=== PATIENT | female | born 1950 ===

== ENCOUNTER 2025-01-23 10:15 | Outpatient (AMB) | payer OTHER, SELFPAY ==
--- NOTE | 2025-01-23 10:26 | MHC.OFFVIS ---
Vital Signs 01/23/25 10:33 Height 4 ft 9 in Weight 119 lb BMI 25.7 BP 169/74 H Blood Pressure Location Lt brachial Position Sitting Respiration 18 Pulse 60 Pulse Source Pulse Oximeter Pulse Oximetry (%) 97 Oxygen Delivery Method Room Air Intake Visit Reasons: Chronic midline low back pain Oil Derrick Operator Required: Yes Oil Derrick Operator Services: Oil Derrick Operator Present Oil Derrick Operator Name: advertising teacher Allergies hydrochlorothiazide Allergy (Unknown, Verified 01/23/25 10:30) Rash tramadol Allergy (Unknown, Verified 01/23/25 10:30) tachycardia HPI Comments Details: Stephanie is very pleasant 74 years old very unfortunate female who is suffering most advanced osteoarthritis in multiple locations. She came today in my office with complains on pain in bilateral shoulders pain in bilateral knees and pain in bilateral lower extremities and pain in the lower back. She reports the lower back pain radiates into the right lower extremity. She reports that radiation ends in the 2nd toe. She reports her pain today 10/10. She is severely disabled. Because of her pain she is unable to sleep normally can not do activities of daily living she can not take care of herself and she can not function normally. She needs walker for ambulation. Weather changes in movements aggravate her pain. In terms of tissue damage he describes her pain as sharp, pinching, hot burning, tingling sensation. For her pain control she takes Tylenol Arthritis. She never had MRI or CT scan of her lumbar spine. MRI is contraindicated for the patient because she has a pacemaker. She had physical therapy for the knees and shoulders but not her her lower back. She on physical exam has her knees grossly deformed and probably destroyed by the arthritis. In the past she received knee injections and shoulder injections however she denied any help from steroid injections. Her past medical history significant for hypertension headaches dizziness and fainting history of chest pain angina history of heart palpitations has a pacemaker she has anemia kidney stones digestive problems and arthritis. Her past surgical history significant for gallbladder surgery she does not remember when but she knows that was long time ago. She admits smoking cigarettes denies drinking alcohol drinks coffee twice a day and denies recreational drugs. Review of Systems Const All systems reviewed & are unremarkable except as noted in HPI and below ENT Reports Normal hearing present Neuro Reports Normal hearing present, Denies Abnormal speech present, Denies confusion and Denies Sensory deficit (Neuro) Psych Denies confusion Physical Exam Vital Signs: Last Vital Signs Pulse 60 07/03/25 10:33 Resp 18 01/23/25 10:33 BP 169/74 H 01/23/25 10:33 Pulse Ox 97 01/23/25 10:33 Oxygen Delivery Method Room Air 01/23/25 10:33 BMI result Body Mass Index 25.7 Const General: no acute distress; No confusion Orientation/consciousness: patient oriented x3 and No confusion Limitations: language barrier Eyes General: appearance normal, both eyes and all related structures Pupils: Equal, round and reactive pupils present EOM: EOMs intact bilaterally Neck Neck: Yes full ROM Chest Chest palpation & inspection: normal inspection of the chest Resp Effort & Inspection: normal respiratory effort, able to speak in complete sentences, normal respiratory pattern, no audible wheezes and no cough Cardio Jugular venous distension: no JVD GI Inspection: Yes normal to inspection Back/Spine/Pelvis Other: Severe tenderness on palpation in projection of the most lower portion of the lumbar spine. SLR is positive bilaterally. Lasegue test is positive bilaterally. Valsalva maneuver aggravates patient's pain. Neuro General: patient oriented x3, gait normal and No confusion Cranial nerves: Yes CN's II-XII intact bilaterally, Yes Equal, round and reactive pupils present, Yes Normal hearing present and Yes Ability to bilaterally elevate shoulders present Speech: No Abnormal speech present Gait exam (Neuro): Normal gait present Motor exam (neuro): 5/5 motor strength present throughout Sensory Exam: No Sensory deficit (Neuro) Extrem Other: On inspection of the bilateral knees: Gross deformity demonstrating end-stage terminal knee osteoarthritis. General: No pedal edema Psych Speech and movement: Normal speech and movement present Affect: normal affect Attitude: cooperative Thought process: Normal thought process present Thought content: Normal thought content present Insight: Good insight present (Psych) Judgement: Good judgement present (Psych) Assessment & Plan Assessment & Plan (1) Osteoarthritis of knees, bilateral: Code(s): M17.0 - Bilateral primary osteoarthritis of knee Category: Medical (2) Radiculopathy, lumbar region: Code(s): M54.16 - Radiculopathy, lumbar region Category: Medical (3) Spondylosis of lumbar region without myelopathy or radiculopathy: Code(s): M47.816 - Spondylosis without myelopathy or radiculopathy, lumbar region Category: Medical (4) Disc degeneration, lumbar: Code(s): M51.369 - Other intervertebral disc degeneration, lumbar region without mention of lumbar back pain or lower extremity pain Category: Medical (5) Chronic pain syndrome: Code(s): G89.4 - Chronic pain syndrome Category: Medical (6) Bilateral knee pain: Code(s): M25.561 - Pain in right knee; M25.562 - Pain in left knee Category: Medical Plan This very unfortunate 74 years old female probably suffering from multiple arthritic sites. Considering her knee she would be a good candidate for total knee replacement however currently she is very negative about the procedure. She states that she has a pacemaker and she has is afraid to go for surgery. I will perform diagnostic genicular nerve block on the left 1st and then on the right, after that with a good results I will schedule her for cooled radiofrequency ablation of the bilateral knee genicular nerves. Again the procedure will be performed 1st on the left and then after that on the right. As of her lower back pain I am pretty confident that she has radiculopathy. I will schedule her for CT scan with and without contrast to evaluate her lumbar spine. She has radicular pain with radiation into the bilateral lower extremities and I believe that some injections could be tried at least 2 temporarily help this patient's pain. Orders: Orders CT lumbar spine wo/w IV con Today M47.816 - Spondylosis without myelopathy or radiculopathy, lumbar region, M51.369 - Other intervertebral disc degeneration, lumbar region without mention of lumbar back pain or lower extremity pain, M54.16 - Radiculopathy, lumbar region PT Evaluation and Treatment Today M47.816 - Spondylosis without myelopathy or radiculopathy, lumbar region, M51.369 - Other intervertebral disc degeneration, lumbar region without mention of lumbar back pain or lower extremity pain, M54.16 - Radiculopathy, lumbar region Patient Instructions: I here by testify that I spent 45 minutes in conversation with this patient as well as planning her care and organizing this note. Coding Level of Care Code New Pt Level 4 (45433) Diagnoses Osteoarthritis of knees, bilateral M17.0 Radiculopathy, lumbar region M54.16 Spondylosis of lumbar region without myelopathy or radiculopathy M47.816 Disc degeneration, lumbar M51.369 Chronic pain syndrome G89.4 Bilateral knee pain M25.561; M25.562
[2025-01-23 10:33] VITALS: BP 169/74; PULSE 60; RESP 18; O2SAT 97; BMI 25.7
--- OUTSIDE RECORDS SUMMARY | 2025-01-23 10:57 | XMS_ITS ---
Author Name [facility] Organization Unknown History of Medication Use Medication Directions Dispensed Refills Start Date End Date Stat iopamidol (ISOVUE-370) 76 % injection 0-150 mL 0-150 mL, Intravenous, IMG once as needed, contrast, Starting on 09/30/23 at 1430, For 1 dose, Radiology Contrast 09/30/2023 09/30/2023 completed acetaminophen (TYLENOL) 325 MG tablet Take 650 mg by mouth every 6 (six) hours as needed for pain. active aspirin EC 81 MG tablet Take 81 mg by mouth daily. active metFORMIN (GLUCOPHAGE) tablet 500 mg Take 500 mg by mouth 2 (two) times a day with meals. active omeprazole (PriLOSEC) 20 MG capsule Take 20 mg by mouth daily. active senna (SENOKOT) 8.6 MG tablet Take 2 tablets by mouth daily. 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 2019-10-23 ProblemAct [facility] Cranial nerve palsy active 2019-12-10 ProblemAct [facility] Chronic kidney disease, stage 3, mod decreased GFR active 2019-10-23 ProblemAct [facility] Allergic rhinitis active 2019-12-10 ProblemAct [facility] Osteopenia active 2019-12-10 ProblemAct [facility] Urinary tract infection active EncounterDiagnosisAct [facility] Hyperlipidemia active 2019-10-23 ProblemAct [facility] Encounters Encounter Type Encounter Reason Primary Diagnosis Location Date Emergency Unspecified fall, initial encounter Unspecified fall, initial encounter [facility] 09/30/2023 Care Team Organization Name Specialty Phone Email Start Date End Da te [facility] GERTRUDIS G[facility] 09/30/2023 [facility] 09/30/2023
--- OUTSIDE RECORDS SUMMARY | 2025-01-23 10:57 | XMS_ITS | Clinical Summary ---
Author Organization [facility] Address [address] [place] [address] Care Team Providers Care Mobility Developer Name Role Phone Bran Vásquez MD Primary Care Provider [phone] Allergies Active Allergy Reactions Criticality Noted Date Comments Cephalexin 01/08/2021 Lisinopril 01/08/2021 Penicillins 01/08/2021 Tramadol 01/08/2021 Medications Medication Sig Dispensed Refills Start Date End Date Status atorvastatin (LIPITOR) tablet 80 mg Take 80 mg by mouth daily. 0 Active aspirin EC 81 MG tablet Take 81 mg by mouth daily. 0 Active omeprazole (PriLOSEC) 20 MG capsule Take 20 mg by mouth daily. 0 Active [place]-3 1000 MG CAPS Take 1 capsule by mouth daily. 0 Active Multiple Vitamin (MULTIVITAMIN ADULT PO) Take 1 tablet by mouth daily. 0 Active calcium-vitamin D (OSCAL-500) 500-400 MG-UNIT per tablet Take 1 tablet by mouth daily. 0 Active cetirizine (ZyrTEC) 10 MG tablet Take 10 mg by mouth daily. 0 Active carvedilol (COREG) 12.5 MG tablet Take 12.5 mg by mouth 2 (two) times a day with meals. 0 Active amLODIPine (NORVASC) tablet 5 mg Take 5 mg by mouth daily. 0 Active metFORMIN (GLUCOPHAGE) tablet 500 mg Take 500 mg by mouth 2 (two) times a day with meals. 0 Active senna (SENOKOT) 8.6 MG tablet Take 2 tablets by mouth daily. 0 Active acetaminophen (TYLENOL) 325 MG tablet Take 650 mg by mouth every 6 (six) hours as needed for pain. 0 Active sulfamethoxazole-t rimethoprim (BACTRIM DS) 800-160 MG per tablet Take 1 tablet (160 mg of trimethoprim total) by mouth 2 (two) times a day. 14 tablet 0 09/30/2023 Active Active Problems Problem Noted Date Diagnosed Date Allergic rhinitis 12/10/2019 Cranial nerve palsy 12/10/2019 ARELLANO (nonalcoholic steatohepatitis) 12/10/2019 Osteopenia 12/10/2019 Chronic kidney disease, stage 3, mod decreased G FR 10/23/2019 Hyperlipidemia 10/23/2019 Type 2 diabetes mellitus with renal manifestatio ns 10/23/2019 Osteoarthritis of both knees 08/28/2019 Overview: Advanced tricompartmental degenerative changes, no fracture or dislocation. Ct left knee, recently done at [facility], seen by orthopedics Dr. joycelyn Avalos Social History Tobacco Use Types Packs/Day Years Used Date Smoking Tobacco: Former Smokeless Tobacco: Never Alcohol Use Standard Drinks/Week Comments Not Currently 0 (1 standard drink = 0.6 oz pur e alcohol) Sex and Gender Information Value Date Recorded Sex Assigned at Female 09/30/2023 1:59 PM EST Gender Identity Female 09/30/2023 1:59 PM EST Sexual Orientation Not on file Job Start Date Occupation Industry Not on file Not on file Not on file Last Filed Vital Signs Vital Sign Reading Time Taken Comments Blood Pressure 153/58 09/30/2023 12:36 PM EST Pulse 60 09/30/2023 12:36 PM EST Temperature 37.2 C (99 F) 09/30/2023 12:36 PM EST Respiratory Rate 18 09/30/2023 12:36 PM EST Oxygen Saturation 97% 09/30/2023 12:36 PM EST Inhaled Oxygen Concentration - - Weight 62.6 kg (138 lb) 09/30/2023 12:36 PM EST Height 144.8 cm (4' 9 ) 09/30/2023 12:36 PM EST Body Mass Index 29.86 09/30/2023 12:36 PM EST Plan of Treatment Health Maintenance Due Date Last Done Comments Hepatitis C Screening 1950 COVID-19 Vaccine (#1) 05/19/1950 Depression Screening 1961 Preventative Health Evaluation 11/18/1967 Colon Cancer Screening (Colonoscopy) 1994 Shingrix-Zoster Vaccine (1 o f 2) 11/18/1999 Fall Risk Assessment 2014 Osteoporosis Screening (DEXA Scan) 2014 Pneumococcal Vaccine (3 of 3 - PPSV23 or PCV20) 06/30/2016 06/30/2015, 12/25/2009 DTap / Tdap / Td (2 - Td or Tdap) 05/16/2018 05/16/2008 RSV Adult > 60+ Yrs or (1 - 1-dose 75+ series) 2024 Influenza Vaccine (Season Ended) 2025 06/12/2019 Hepatitis B Vaccines Aged Out No long er eligible based on patient's age to complete this topic RSV Ped < 20 months Aged Out No longe r eligible based on patient's age to complete this topic Care Teams Mobility Developer Relationship Specialty Start Date End Date Bran Vásquez MD [address] [place] [id number] PCP - General Hospitalist Medicine 09/30/23
--- OUTSIDE RECORDS SUMMARY | 2025-01-23 10:57 | XMS_ITS | Data Portability ---
Author Organization [employer] [facility], [facility] Address [address] [place] [address] Care Team Providers Care Proof Sorter Name Role Phone HIM CCA OTHER Assessment Encounter Date Assessment Date Assessment LastModified by Organization Details LastModified Time 05/29/2023 05/29/2023 Ms. Vane Lisa is a 72yoF w/ a PmHx of HTN, DM2, hx of cholecystectomy , reported renal mass who is seen today for right flank/thoracic pain. Ms. Lisa reports that for the past week she has had achey right flank pain. She denies any other associated symptoms including dysuria, hematuria, urinary frequency, nausea/vomiting , cough/congestio n, diarrhea, or any other concerns. She presented to the ED on 05/26 for further evaluation where she reportedly underwent CT imaging, UA, labs without abnormality (records not available for review). She does note that any twisting will aggravate the pain. VSS. Leadership Intern on site reports no reproducible abdominal pain, no CVA tenderness. POC UA with 3+ LE but without blood or nitrites. Unable to take ibuprofen given hx of renal disease. Given reported normal imaging and lack of clinical history c/w cystitis or pyelonephritis, suspect more likely MSK etiology. Recommended topical therapy and offered voltaren gel, which she is in agreement with. Will send urine culture out of abundance of caution, but do not suspect this is the cause of her symptoms enough to empirically start treatment. Primary team, Sloan Sutherland would benefit from follow up in the next week or so to make sure she's stating to feel better. [email or web address] Not available 05/29/2023 12:00:59 11/26/2023 11/26/2023 As noted, we were called to see this patient regarding concerns of hyponatermia. Evaluation in the field was performed by my fountain pen nibs inspector colleague, as noted above, I provided real-time direction and supervision for this visit. The evaluation revealed 73y F with hyponatremia of 127 today, correcting to 129 (gluc 164), stable form yesterday's level of 129. Patient reports that she has been counsled about hyponatremia before, but doesn't know her baseline. Her sxs (dizziness, palpitations, vague sense of genrally unwell) have resolved. Encouraged to call PCP tomorrow morning to either get urgent appt for hyponatremia or confirmation that she is at her baseline. Note to CRC to confirm we reach out tomorow about this. Notes written for patient so that she can report to nursing staff at her clinic. Impression: hyponatermia, unclear baseline, stable from yesterday Plan: - call PCPs office in am for visit vs counseing by nurse - request for f/u by [facility] CRC tomorrow Primary care, consider urgent f/u this week or next pending baseline sodium level Disposition: We discussed the diagnostic uncertainty of home visits and the risk associated with this. In this case, the patient and I felt this to be an acceptable and reasonable amount of risk given the benefit of avoiding an ED visit. We discussed the need to seek care urgently/emerge ntly in the setting of any new or worsening serious symptoms, particularly worsening dizziness, confusion, headache, falls, malaise, weakness atilhou Not available 11/26/2023 18:14:38 04/22/2024 04/22/2024 I provided real -time medical direction via phone for this encounter and was available for additional phone-based assistance as needed. I have reviewed and agree with the Assessment and Plan as documented by the Leadership Intern. Patient given the opportunity to ask questions. Our service contacted for an assessment of: Chest pain. As per above, patient with intermittent chest pain over the past several days. Nothing makes it better or worse. Is located anterior portion of the chest wall on the left side. Has known extensive cardiac disease including coronary artery disease as well as pacer placement. Denies shortness of breath and denies GROSS. Per fountain pen nibs inspector on the scene, vital signs are stable and patient is afebrile. ECG notes wide complex QRS, possible sinus rhythm. No pacer spikes detected. Impression: Chest pain in the context of abnormal EKG and previous cardiac disease. Referred to the emergency department out of abundance of caution to rule out ischemic disease. Plan: Referred to the emergency department and expect call made. [email or web address] Not available 04/22/2024 20:55:21 Plan of Treatment Reminders Order Date Submit Date Provider Last Modified By Organization Details Last Modified Time Details Appointments None recorded. Lab cmp, whole blood + renay [address], [id number] 4 16:57:24 hemoglobin + hematocrit, blood [address], [id number] 4 16:57:23 culture, urine 2022 023 [place] [facility] (Centralized Electronic Ordering - All Locations), Patient Can Go To The Location Of Their Choice, [id number] 14:44:21 Referral None recorded. Procedures None recorded. Surgeries None recorded. Imaging electrocard iogram 2023 024 [email or web address] [facility], [address] [place] [address], [id number] 14:52:21 Medication Orders Voltaren 1 % topical gel 2022 023 [facility] [place], [place] - [id number], [address] [place] [address], [address], 16:53:28 Patient TargetsNo targets recorded. Patient InstructionsNo instructions recorded. Reason for Referral None Reported. Results Created Date Observation Date Name Description Value Unit Range Abnormal Flag Note LastModifiedBy Organization Detail LastModifiedTime 05/29/2005/29/2023 URINE CULTU RE specimen description URINE Not Available [facility] ([facility]ized [facility] Ordering - All Locations) Patient Can Go To The Location Of Their Choice, [id number] 05/30/2023 14:44:21 05/29/2005/29/2023 URINE CULTU RE special requests NONE Not Available [facility] (Centralized Electronic Ordering - All Locations) Patient Can Go To The Location Of Their Choice, [id number] 05/30/2023 14:44:21 05/29/20 23 05/30/2023 URINE CULTU RE culture <10,00 0 COL/ML abnormal Not Available [facility] (Centralized Electronic Ordering - All Locations) Patient Can Go To The Location Of Their Choice, [id number] 05/30/2023 14:44:21 05/29/20 23 05/30/2023 URINE CULTU RE report status FINAL 2022 Not Available [facility] (Centralized Electronic Ordering - All Locations) Patient Can Go To The Location Of Their Choice, [id number] 05/30/2023 14:44:21 11/25/19 24 11/25/2023 hemog lobin + hemat ocrit , blood Hemoglobin 15.2 Not Available [facility] - [address], [address] [place] [address] 11/25/2023 16:53:14 11/25/19 24 11/25/2023 cmp, whole blood + picco lo CRE 0.5 Not Available [facility] [address], [address] [place] [address] 11/25/2023 16:52:56 11/25/19 24 11/25/2023 cmp, whole blood + picco lo GLU 130 Not Available [facility] [address], [address] [place] [address] 11/25/2023 16:52:56 11/25/19 24 11/25/2023 cmp, whole blood + picco lo K+ 4.4 Not Available [facility] - [facility] [address], [address] 11/25/2023 16:52:56 11/25/19 24 11/25/2023 cmp, whole blood + picco lo Na+ 129 Not Available [facility] - [facility] [address], [phone] 11/25/2023 16:52:56 04/22/20 24 04/22/2024 elect lauroar diogr am No observ ation record ed. [email or web address] [address], [phone] 04/22/2024 21:20:48 Result Notes None recorded. Medical Equipment None Reported. Medications Name Sig Start Date Stop Date Status Note LastModified by Organization Details LastModified Time Prescription - Renewal active Not Available Not Available No t Available methocarbamo l 500 mg tablet TAKE 1 TABLET BY MOUTH two (2) times a day NEEDED FOR PAIN OR SPASM active Not Available Not Available No t Available metformin 500 mg tablet TAKE 1 TABLET BY MOUTH two (2) times a day WITH MEALS active Not Available Not Available No t Available atorvastatin 80 mg tablet TAKE 1 TABLET BY MOUTH ONCE DAILY active Not Available Not Available No t Available atorvastatin 20 mg tablet TAKE 1 TABLET BY MOUTH ONCE DAILY active Not Available Not Available No t Available carvedilol 12.5 mg tablet TAKE 1 TABLET BY MOUTH two (2) times a day WITH MEALS active Not Available Not Available No t Available cetirizine 10 mg tablet TAKE 1 TABLET BY MOUTH ONCE DAILY active Not Available Not Available No t Available sucralfate 1 gram tablet TAKE 1 TABLET BY MOUTH two (2) times a day WITH MEALS active Not Available Not Available No t Available hydralazine 25 mg tablet TAKE 1 TABLET BY MOUTH two (2) times a day active Not Available Not Available No t Available aspirin 81 mg tablet,delay ed release TAKE 1 TABLET BY MOUTH ONCE DAILY active Not Available Not Available No t Available amlodipine 10 mg tablet TAKE 1 TABLET BY MOUTH ONCE DAILY active Not Available Not Available No t Available benzonatate 100 mg capsule TAKE 1 CAPSULE BY MOUTH 3 (THREE) TIMES A DAY NEEDED FOR COUGH active Not Available Not Available No t Available omeprazole 20 mg capsule,dakotah yed release TAKE 1 CAPSULE BY MOUTH two (2) times a day active Not Available Not Available No t Available gabapentin 100 mg capsule TAKE 1 CAPSULE BY MOUTH two (2) times a day active Not Available Not Available No t Available estradiol 0.01% (0.1 mg/gram) vaginal cream Please use a pea-sized amount on your finger and place inside the vagina for 2 weeks at night, and then decrease to twice a week at night (Mondays and ) active Not Available Not Available N ot Available Arthritis Pain Relief (acetaminoph en) ER 650 mg tablet,exten d release TAKE 2 TABLETS BY MOUTH EVERY 8 HOURS NEEDED FOR PAIN active Not Available Not Available No t Available cyclobenzapr ine 5 mg tablet TAKE 1 TABLET BY MOUTH two (2) times a day NEEDED FOR MUSCLE SPASM active Not Available Not Available No t Available solifenacin 5 mg tablet TAKE 1 TABLET BY MOUTH ONCE DAILY active Not Available Not Available No t Available FreeStyle Lite Strips USE TO TEST FINGER STICK BLOOD SUGAR ONCE DAILY active Not Available Not Available No t Available FeroSul 325 mg (65 mg iron) tablet TAKE 1 TABLET BY MOUTH ONCE DAILY active Not Available Not Available No t Available diclofenac 1 % topical gel APPLY 2 GRAMS TO THE AFFECTED AREA(S) BY TOPICAL ROUTE 4 TIMES PER DAY active Not Available Not Available No t Available Prolensa 0.07 % eye drops PLACE 1 DROP in SURGICAL EYE(S) once DAILY at bedtime active Not Available Not Available No t Available Oystercal-D 500 mg-10 mcg (400 unit) tablet TAKE 1 TABLET BY MOUTH two (2) times a day active Not Available Not Available No t Available Debra-matty 8.6 mg tablet TAKE 1 TABLET BY MOUTH two (2) times a day NEEDED FOR CONSTIPATIO N active Not Available Not Available No t Available Daily-Anu (with folic acid) 400 mcg tablet TAKE 1 TABLET BY MOUTH ONCE DAILY active Not Available Not Available No t Available Vitals Date Recorded Heart rate Respiratory rate Body temperature Oxygen saturation Oxygen saturation in Arterial blood by Pulse oximetry Systolic And Diastolic Provider Name and Address Organization Details Last Updated DateTime 4 67 /min 16 /min 98.2 [degF] 99 % 99 % 170/81 mm[Hg] Not Available [employer] 4 16:16:21 Date Recorded Heart rate Respiratory rate Oxygen saturation Oxygen saturation in Arterial blood by Pulse oximetry Body temperature Systolic And Diastolic Provider Name and Address Organization Details Last Updated DateTime 4 66 /min 16 /min 98 % 98 % 99 [degF] 160/90 mm[Hg] Not Available [employer] 4 19:21:40 Date Recorded Heart rate Oxygen saturation Oxygen saturation in Arterial blood by Pulse oximetry Body temperature Respiratory rate Systolic And Diastolic Provider Name and Address Organization Details Last Updated DateTime 4 65 /min 99 % 99 % 97.1 [degF] 16 /min 150/66 mm[Hg] Not Available [employer] 4 16:47:42 Date Recorded Respiratory rate Heart rate Body temperature Body weight Body height Oxygen saturation Oxygen saturation in Arterial blood by Pulse oximetry Systolic And Diastolic Provider Name and Address Organization Details Last Updated DateTime 3 16 /min 66 /min 99.1 [degF] 73299.8 8 g 144.78 cm 98 % 98 % 159/69 mm[Hg] Not Available [facility] - production 11:26:47 Social History None recorded. Functional Status None recorded. Mental Status None recorded. Family History Nothing Reported. Medical History No medical history recorded. Gynecological HistoryNo gynecological history recorded. Obstetrics History GPAL:G 0 P 0 0 0 0 Past Encounters Encounter ID Performer Location Encounter Start Date Encounter Closed Date Diagnosis/Indication Diagnosis SNOMED-CT Code Diagnosis ICD10 Code Diagnosis Note [id number] Ele Peña MD [address] [address] 05/29/2023 11:25:06 05/30/2023 11:17:09 Right flank pain 847353068 R10.9 Urinary symptoms 1045951 08 R39.9 [id number] Tñoa Zamora MD [address] [address] 11/25/2023 16:16:01 11/26/2023 12:35:10 Dizziness 629794986 R42 73 year old female with a history of a pacemaker, being evaluated for a history of dizziness, palpitatio ns and malaise for the last 2-3 days. Patient reports no syncope, chest pain, SOB, fever/chil ls, cough, urinary symptoms, vomiting or diarrhea. Patient is eating and drinking normally. Exam notable for BP 170/81, with otherwise normal vital signs, POC CMP notable for sodium of 129, urine dip normal. EKG showing a paced rhythm without obvious abnormalit y. Presentati on consistent with dizziness of unclear etiology, in a clinically stable patient with mild hyponatrem ia noted on labs. Recommend FU in 24-48h to reassess sodium level. I have reviewed and agree with the assessment and plan as documented by the fountain pen nibs inspector. I provided real-time medical direction for this encounter and was immediatel y available to provide additional phone-base d assistance as needed. We discussed the diagnostic uncertaint y of home visits and associated risks. We discussed the need to seek care urgently/e mergently in the setting of any new or worsening symptoms. [id number] Jaci Seymour MD [address] [address] 11/26/2023 17:33:41 11/28/2023 11:41:23 Hyponatremia 76971092 E87.1 [id number] Angelic Duncan MD [address] [address] 04/22/2024 16:47:28 04/23/2024 12:53:07 Chest pain 54439758 R07.9 Health Concerns Section Related Observation LastModified by Organization Detai ls LastModified Time None Recorded Concern Status LastModified by Organization Details LastModified Time None Recorded Advance Directives Directive None Recorded Payers Insurance Date Sequence Insurance Name Policy Number Policy Galloway Covered Member ID Galloway Member ID Guarantor Name 04/24/2024 1 [facility] - DOS ON OR AFTER 2022 - DUAL ELIGIBLE - FDC OPTIONS AND ONE [employer] (MEDICARE REPLACEMENT/ADV ANTAGE - HMO) Vane Lisa [id number] Vane Lisa Notes Date Note Type Note Provider Name and Address Organization Details Recorded Time 05/29/2023 text/html HPI: 72 y.o. femaile whose PMH include chronic renal failure, cardiac pacemaker, osteoarthritis of both knees, pyelonephritis and mass of kidney c.o. right side ABD pain that radiates to the back x 1 week. Associated symptoms: dizziness and no other symptoms. Member went to ED 05-26-23 for further evaluation; had CAT scan and lab work ; was told normal findings but member remains symptomatic. Member in agreement with [facility] Referral. ..................... ..................... ..................... ..................... ..................... ..................... ............... CRC Nursing Assessment: Comments: CRC RN did not require any additional information to process this visit. ..................... ..................... ..................... ..................... ..................... ..................... ............... Leadership Intern Note From Babatunde Mancuso: Pt reports approx one week of right sided ABD and flank pain. Pt denies any precipitating event or associated injury. Pt denies dysuria, hematuria, CP, SOB, f/n/v/d. Pt was seen at [facility] ED on Monday, had full work up and was told everything was negative. Pt is alert, NAD. VSS. Afebrile. Neuro exam and gait normal. Lungs CTA. ABD is soft, non distended. No CVA tenderness. No KRISTYN. UA: 3+ BETY, - NIT, - BLO, - PRO. UC sent to [facility]. Pt instructed to continue with tylenol, call PCP s office today for f/u, and to seek emergent medical care for new or worsening sx, which are reviewed with her. [facility] Lab Orders: culture, urine: Performed ..................... ..................... ..................... ..................... ..................... ..................... ............... Disposition: Som Peña MD [address] [facility],[address], [place], [address], Mineralist 05/29/2023 12:02:51 11/25/2023 text/html CRC Nurse Triage Notes (Trent Servin): Patient Reports: Shortness of Breath; Palpitations, feeling dizzy; Weakness/tachycardiaD enies: Active Chest pain, radiates to neck jaw and or arm Diaphoretic/Sweating Describes as crushing Sudden onset of nausea/Vomiting and shortness of breath. Unable to speak in full sentences without distress Chest pain, increased fatigue Chief Complaints: Syncope/Dizziness/Lig htheadednessPMH: Hypertension, DiabetesAllergies: UnknownComments: [employer] verified the member's name//address and phone number. Education provided on the response time and the member was advised to monitor reported s/s and seek emergency treatment if needed.Member is feeling unwell with dizziness x 3 days - SOB - Pacemaker in place - Increased stress = I feel drunk hx of Diabetes - Last POC 106 - Denies CP - Denies cold symptoms -Concerns expressed and the member declined ER treatment x3 - [facility] response times explained Leadership Intern POC Test Results from Babatunde Mancuso [facility]ANDO epoc (1) [16:14]pH: 7.4 pH unitspCO2: 35.5 mmHgpO2: 21 mmHgNa: 129 mmol/LK: 4.4 mmol/LiCa: 1.08 mmol/LCl: 97 mmol/LTCO2: 23.5 mEq/LHct: 45 %Hb: 15.2 g/dLGlu: 130 mg/dLLac: 0.3 mmol/LCr: 0.5 mg/dLBUN: 15 mg/dLAAttachments uploaded as part of this test result can be found under Documents section. EKG (1) [16:14]EKG test performed.Attachments uploaded as part of this test result can be found under Documents section. Leadership Intern POC Test Results from Babatunde Mancuso [facility]O Urine Dipstick (1) [16:28] Urine leukocytes: - BETY Urine nitrites: - NIT Urine urobilinogen: - URO Urine protein: - PRO Urine pH: 6.0 pH Urine blood: - BLO Urine specific gravity: 1.00 SG Urine ketones: - KET Urine bilirubin: - CALISTA Urine glucose: - GLU ..................... ..................... ..................... ..................... ..................... ..................... ............... Leadership Intern Note From Babatunde Mancuso: Pt reports three days of intermittent dizziness, palpitations, and overall unwell feeling. Pt denies CP, SOB, GROSS, BAUTISTA, flank pain, dysuria, f/n/v/d. Pt reports that she is eating and drinking normally and her BG levels have been WNLs. Pt is alert, NAD. VSS. Afebrile. Non focal neuro exam. Normal gait. Lungs CTA. Benign ABD exam. No LE edema. Unremarkable EKG. Unremarkable UA. POC labs uploaded; Na 129, Ca 1.08. Pt instructed to closely monitor sx over the next 48 hours and [facility] will f/u on Monday. Pt instructed to seek emergent medical care for new or worsening sx, which are reviewed with her. ..................... ..................... ..................... ..................... ..................... ..................... ............... Disposition: Fulfilled Toña Zamora MD [address] [facility],[address], [place], [address], [facility] [employer] [facility] 11/25/2023 16:57:51 11/26/2023 text/html CRC Nurse Triage Notes (Trent Servin): Chief Complaints: Electrolyte Imbalance PMH: Hypertension, Diabetes Allergies: Unknown Comments[facility] Se[facility] on [facility]24 - SummaryPt reports three days of intermittent dizziness, palpitations, and overall unwell feeling. Pt denies CP, SOB, GROSS, BAUTISTA, flank pain, dysuria, f/n/v/d. Pt reports that she is eating and drinking normally and her BG levels have been WNLs. Pt is alert, NAD. VSS. Afebrile. Non focal neuro exam. Normal gait. Lungs CTA. Benign ABD exam. No LE edema. Unremarkable EKG. Unremarkable UA. POC labs uploaded; Na 129, Ca 1.08. [facility] RemarksPatient seen 11/24 for malaise/palpitations, unclear etiology, sodium 129, recommend FU 24-48h to repeat sodium level. - Follow up scheduled 11/25[facility] HPI:feeling gernally unwell, palpitatoins and dizziness. seen by [facility] yesterday, found to have sodium of 129. today, 127. on history, she reports being told by her pcp to restrict liquids b/c of low sodium but she doesn't how low. Leadership Intern POC Test Results from Perri Oliver - [employer] iSTAT Chem8+ (1) [19:22] Na: 127 mEq/L K: 4.2 mEq/L Cl: 97 mEq/L iCa: 1.11 mmol/L TCO2: 22 mmol/L Glu: 164 mg/dL BUN: 16 mg/dL Crea: 0.7 mg/dL Hct: 37 % Hb: 12.6 g/dL A ..................... ..................... ..................... ..................... ..................... ..................... ............... Leadership Intern Note From Perri Oliver: Community Leadership Intern Irvin Oliver SC6 dispatched to a [facility] for a 73 yof C/O hyponatremia. Upon arrival, the pt was ambulatory, LYONS X4, in no apparent distress. She was calm, skin warm pink and dry. No tachypnea or dyspnea. She stated that she was seen by [facility]NA and found to be hyponatremic, and that she was dizzy the day prior. She denied any dizziness, BAUTISTA, weakness, vision changes, cough, sore throat, SOB, CP, palpitations, abd pain, N/V/D, or urinary S/S. BMP acquired-sodium 127, glucose 164. Pt reported that she had low sodium in the past, and that she had been placed on a fluid restriction by her PCP. [facility] consulted; pt was reassured that since she was asymptomatic, she was safe to stay home and should follow up w/ her PCP, especially to see if this sodium level was WNL for her. Pt verbalized understanding and agreed. Red flags discussed at length. ..................... ..................... ..................... ..................... ..................... ..................... ............... Disposition: Som Seymour MD [address] [place] [address],[address], [place], [address], Mineralist 11/26/2023 19:46:26 04/22/2024 text/html HPI: Maya is a 73 yo Welsh/Serbian speaking female with extensive medical hx including but not all inclusive of angina pectoris, HTN, Type 2 DM, Atherosclerosis of celiac artery, arthralgia, pyelonephritis, cranial nerve disorder, GERD, hyponatremia, OA, cardiac PCM, CKD 2, UI, right trigger finger, KENISHA and panic disorder. NKDA. Maya calling in reporting that she does not feel well for a few days with general malaise, diarrhea and upper back pain since yesterday. Derekr states she had left sided chest pain yesterday but gone today. Maya reports yesterday's chest pain had no radiation to arm , jaw or neck. Mbr denies SOB, fever, n/v or abdominal pain today. Mbr reports poor appetite for a few days. Mbr asking that someone come to her home and check her. Offered MIHINSTED and she agreed. Instructed Mbr to call 911 if chest pain recurs or worsening s/s. Mbr agreed to do. This CRU RN placed [facility] ref in for Mbr today and sent GC activity to CP referencing this call and for further follow up with Mbr as applicable. Call originated from [phone]. Address and phone number confirmed with Mbr. ..................... ..................... ..................... ..................... ..................... ..................... ............... CRC Nurse Triage Notes (Trent Servin): Chief Complaints: Pain, Diarrhea, Weakness/Lethargy PMH: Heart Disease, Hypertension, Diabetes Comments: Reviewed HPI Leadership Intern Organization Information for [employer] Legal Name: [facility] Transportation Address: [address] [place] [address], Environmental Conflict Manager: Ryan Pedraza MD CLIA No.: [id number] Leadership Intern POC Test Results from [facility] EKG (16:42:22) EKG test performed. Attachments uploaded as part of this test result can be found under Documents section. ..................... ..................... ..................... ..................... ..................... ..................... ............... Leadership Intern Note From Babatunde Mancuso: Pt reports three days of worsening weakness, dizziness and intermittent chest and upper back pain. Pt sts the CP comes on suddenly, usually at rest and can last for hours. Pt sts she s never had pain like this before. Pt denies BAUTISTA, SOB, URI sx, ABD discomfort, f/n/v/d. Pt is alert, pale. VSS. Afebrile. Non focal neuro exam. Lungs CTA. Benign ABD exam. No LE edema. EKG: ventricular paced. I recommend the pt be seen in the ED for a full work up. Pt agreeable only if family is able to drive her. Pt to go to [place] via family. ..................... ..................... ..................... ..................... ..................... ..................... ............... Disposition: Fulfilled Angelic Duncan MD [address] [facility],[address], [place], [address], [employer] 04/22/2024 20:55:44 OBGyn Episode No OBEpisode recorded.
== END 2025-01-23 10:49 | disposition home or self-care (01) ==
LOC: HO.PMC 10:16
PROVIDERS: PCP Internal Medicine; Referring Provider Physician Assistant; Visit Provider Anesthesiology
DX: M17.0 Bilateral primary osteoarthritis of knee (principal); M54.16 Radiculopathy, lumbar region; M47.816 Spondylosis without myelopathy or radiculopathy, lumbar region; M51.369 Other intervertebral disc degeneration, lumbar region without mention of lumbar back pain or lower extremity pain; G89.4 Chronic pain syndrome; M25.561 Pain in right knee; M25.562 Pain in left knee
CPT/HCPCS: 99204

== ENCOUNTER → 2025-01-23 10:15 | Outpatient (BNVA) | payer OTHER, SELFPAY | PROVIDERS: PCP Internal Medicine; Referring Provider Physician Assistant; Visit Provider Anesthesiology | DX: M17.0 Bilateral primary osteoarthritis of knee (principal); M54.16 Radiculopathy, lumbar region; M47.816 Spondylosis without myelopathy or radiculopathy, lumbar region; M51.369 Other intervertebral disc degeneration, lumbar region without mention of lumbar back pain or lower extremity pain; G89.4 Chronic pain syndrome; M25.561 Pain in right knee; M25.562 Pain in left knee | CPT/HCPCS: 99202 ==

== ENCOUNTER 2025-04-08 06:27 | Outpatient (REF) | payer OTHER, SELFPAY ==
--- NOTE | ~2025-04-08 | FL_ITS ---
EXAMINATION: FL GUIDANCE ONLY HISTORY: M25.561 - Pain in right knee COMPARISON: None available. TECHNIQUE: Fluoroscopy time: 0.5 minutes. Cumulative Dose: 2.03 mGy. DAP: 0.0353 mGym2 Images: 3. FINDINGS: Fluoroscopic spot films of the right knee in the lateral projection demonstrate needles in place in the distal femur and proximal tibia. FL/FL guidance in treatment room IMPRESSION: Fluoroscopy during procedure. Please see procedure report for additional information. Electronically signed by: Rico Lombardo MD 04/08/2025 12:17 PM EDT
--- OUTSIDE RECORDS SUMMARY | 2025-04-08 06:30 | XMS_ITS | Clinical Summary ---
Author Organization [facility] Address [address] [place] [address] Phone Care Team Providers Care Wholesale Account Manager Name Role Phone Bran Botello MD Primary Care Provider Allergies Active Allergy Reactions Criticality Noted Date Comments Lisinopril 10/23/2019 Tongue swelling Penicillins Rash 06/12/2019 Solifenacin Hallucinations 09/28/2023 Pt felt room spinning Tramadol 01/08/2021 Medications blood-glucose meter kit 1 each by Other route 1 (one) time each day. 09/19/19 24 Active miscellaneous medical supply (Blood Pressure Cuff) misc 1 Units by Not Applicable route 2 (two) times a day. 09/30/19 21 Active diclofenac (VOLTAREN) 1 % topical gel Apply 4 g topically 2 (two) times a day. 04/29/20 24 Active FREESTYLE LANCETS MISC 1 EA by Other route 1 (one) time each day. 09/19/19 24 Active nut.tx.glucose intolerance,soy (GLUCERNA ORAL) Take 1 Can by mouth 1 (one) time each day. Chocolate and strawberry flavors only 01/14/20 23 Active cyclobenzaprine (FLEXERIL) 5 mg tablet Take 1 tablet (5 mg total) by mouth at bedtime as needed for muscle spasms. 30 tablet 2 08/06/19 25 Active capsaicin (ZOSTRIX) 0.025 % cream Apply topically 4 (four) times a day if needed (pain). 60 g 09/13/19 25 Active True Comfort Lancet 30 gauge misc Use to check blood sugar once a day 100 each 3 09/25/19 25 Active blood sugar diagnostic (FreeStyle Lite Strips) test strip Use to check blood sugar once a day 200 strip 3 09/25/19 25 Active calcium carbonate-kay calciferol 500 mg-10 mcg (400 unit) per tablet TAKE 1 TABLET BY MOUTH two (2) times a day 180 tablet 1 10/29/19 25 Active atorvastatin (LIPITOR) 20 mg tablet TAKE 1 TABLET BY MOUTH ONCE DAILY 90 tablet 1 10/31/19 25 Active hydrALAZINE (APRESOLINE) 25 mg tabletIndicatio ns:Essential (primary) hypertension TAKE 1 TABLET BY MOUTH two (2) times a day 180 tablet 1 10/31/19 25 Active senna 8.6 mg tabletIndicatio ns:Constipation , unspecified TAKE 1 TABLET BY MOUTH two (2) times a day NEEDED FOR CONSTIPATION 180 tablet 1 10/31/19 25 Active methocarbamoL (ROBAXIN) 750 mg tablet Take 1 tablet (750 mg total) by mouth 4 (four) times a day for 7 days. 28 each 12/27/19 25 Active carvediloL (COREG) 12.5 mg tablet TAKE 1 TABLET BY MOUTH two (2) times a day WITH MEALS 180 tablet 1 01/30/20 25 Active fexofenadine (ANTHONY) 180 mg tablet TAKE 1 TABLET BY MOUTH ONCE DAILY AT BEDTIME NEEDED FOR nasal ALLERGIES 90 tablet 1 01/30/20 25 Active amLODIPine (NORVASC) 10 mg tablet TAKE 1 TABLET BY MOUTH ONCE DAILY 90 tablet 1 01/30/20 25 Active docusate sodium (COLACE) 100 mg capsule TAKE 1 CAPSULE BY MOUTH two (2) times a day NEEDED FOR CONSTIPATION 180 capsule 1 01/30/20 25 Active loratadine (CLARITIN) 10 mg tabletIndicatio ns:Post-nasal drip Take 1 tablet (10 mg total) by mouth 1 (one) time each day. 30 each 2 02/13/20 25 2024 Active fluticasone propionate (FLONASE) 50 mcg/actuation nasal sprayIndication s:Post-nasal drip Administer 2 sprays into each nostril 1 (one) time each day. Shake gently. Before first use, prime pump. After use, clean tip and replace cap. 16 g 5 02/13/20 25 2025 Active nystatin (MYCOSTATIN) 100,000 unit/mL suspensionIndic ations:Thrush, oral Swish and swallow 1 teaspoonful(5ml ) 4 times daily for 10 days for thrush 200 mL 02/13/20 Active sucralfate (CARAFATE) 1 gram tablet TAKE 1 TABLET BY MOUTH 3 (THREE) TIMES A DAY 270 tablet 02/26/20 25 Active FeroSuL 325 mg (65 mg iron) tablet TAKE 1 TABLET BY MOUTH ONCE DAILY 90 tablet 03/26/20 25 Active Daily-Anu, with folic acid, 400 mcg tablet TAKE 1 TABLET BY MOUTH ONCE DAILY 90 tablet 03/26/20 25 Active acetaminophen (TYLENOL 8 HOUR) 650 mg 8 hr tablet Take 1 tablet (650 mg total) by mouth every 8 (eight) hours if needed for mild pain. Do not crush, chew, or split. 90 tablet 03/26/20 25 Active aspirin 81 mg EC tablet Take 1 tablet (81 mg total) by mouth 1 (one) time each day. 90 tablet 03/26/20 25 Active omeprazole (PriLOSEC) [address] capsule TAKE 1 CAPSULE BY MOUTH two (2) times a day 180 capsule 03/26/20 25 Active gabapentin (NEURONTIN) 100 mg capsule TAKE 2 CAPSULES BY MOUTH two (2) times a day 360 capsule 03/26/20 25 Active acetaminophen (Tylenol 8 Hour) 650 mg 8 hr tablet Take 1 tablet (650 mg total) by mouth every 8 (eight) hours if needed for mild pain. Do not crush, chew, or split. 90 tablet 3 08/06/19 25 2024 Discontinued omeprazole (PriLOSEC) [address] capsule TAKE 1 CAPSULE BY MOUTH two (2) times a day 180 capsule 1 09/28/19 25 2024 Discontinued aspirin 81 mg EC tablet TAKE 1 TABLET BY MOUTH ONCE DAILY 30 tablet 5 09/28/19 25 2024 Discontinued FeroSuL 325 mg (65 mg iron) tablet TAKE 1 TABLET BY MOUTH ONCE DAILY 90 tablet 1 10/04/19 25 2024 Discontinued Daily-Anu, with folic acid, 400 mcg tablet TAKE 1 TABLET BY MOUTH ONCE DAILY 90 tablet 1 10/04/19 25 2024 Discontinued gabapentin (NEURONTIN) 100 mg capsule TAKE 2 CAPSULES (200 MG) BY MOUTH two (2) times a day 120 capsule 3 11/27/19 25 2024 Discontinued nitrofurantoin, macrocrystal-mo nohydrate, (MACROBID) 100 mg capsule Take 1 capsule (100 mg total) by mouth 2 (two) times a day for 5 days. 10 capsule 03/04/20 25 2024 Active Problems Problem Noted Date Diagnosed Date Hypomagnesemia 09/30/2024 Type 2 diabetes mellitus wit h circulatory disorder, without long-term current use of insulin (CMS/[facility] V24, CMS/[facility] V28) 07/14/2024 Coronary artery disease due to lipid rich plaque 07/14/2024 Chest pain 06/22/2024 Type 2 diabetes mellitus wit h hyperosmolarity without coma, without long-term current use of insulin (CMS/[facility] V24, CMS/[facility] V28) 05/08/2024 Rotator cuff arthropathy of both shoulders 09/19 Urinary incontinence 01/13/2023 CKD (chronic kidney disease), stage II Chronic midline low back pain without sciatica 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 Mckee 03/22/21: close monitoring; Bx & intervention if rapid change. Abnormal Pap smear of cervix 12/10/2019 Overview (05/08/2024): LGSIL Allergic rhinitis 12/10/2019 Cranial nerve palsy 12/10/2019 Cystocele with uterine prolapse 12/10/2019 ARELLANO (nonalcoholic steatohepatitis) 12/10/2019 Osteopenia 12/10/2019 Pyelonephritis 12/10/2019 Overview (05/08/2024): History Chronic kidney disease, stag e 3, mod decreased GFR (CMS/[facility] V24, CMS/[facility] V28) 10/23/2019 GERD (gastroesophageal reflux disease) 0 Mixed hyperlipidemia 10/23/2019 Obesity (BMI 30.0-34.9) 10/23/2019 Primary hypertension 10/23/2019 Leukocytosis 09/22/2019 Hyponatremia 09/18/2019 Overview (05/08/2024): History of chronic hyponatremia-during hospitalization please restriction improved sodium levels. Additional work-up ordered. Referral to nephrology is provided Pacemaker 09/17/2019 Overview (05/08/2024): In 11/2018-- ??bradycardia Has upcoming appt in 12/2019 with PVC cardio/ Fall (on) (from) unspecified stairs and steps, s equela 08/28/2019 Knee contusion 08/28/2019 Open fracture dislocation of interphalangeal joint of left thumb 08/28/2019 Overview (05/08/2024): 08/07/2019/[facility] Osteoarthritis of both knees 08/28/2019 Overview (05/08/2024): Advanced tricompartmental degenerative changes, no fracture or dislocation. Ct left knee, recently done at [facility], seen by orthopedics Dr. 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 06/12/2019 Type 2 diabetes mellitus wit hout complication, without long-term current use of insulin ([facility] V24, [facility] V28) 06/12/2019 Encounters Date Type Department Care Team Description 03/28/2025 Telephone Adult Medicine [facility] [address] [place] [phone] Bran Botello MD 03/05/2025 3:25 PM EDT Ancillary Procedure [facility] - [facility] [address] [facility] [address] [place] [address] 03/04/2025 11:00 AM EDT Office Visit [facility] [address] [place], [place] [phone] Tiburcio Simpson PA Acute cystitis without hematuria (Primary Dx) 03/03/2025 Telephone Adult Medicine [id number] [place] [address] Bran Botello MD 02/21/2025 Telephone [facility] - [address] [place] [address] Shellie Guerrero [place] 02/12/2025 11:00 AM EDT Office Visit Walk-In Clinic - [facility] [address] [place] [address] Vishal Hdz, KJ Acute pain of mouth (Primary Dx); Thrush, oral; Post-nasal drip from Last 3 Months Immunizations Name Administration Dates Next Due Influenza trivalent, 0.5mL (Fluad) 65yo and olde r 06/12/2019 Pneumococcal conjugate 13 va lent (Prevnar 13, PCV13) 2mo and older 06/30/2015 Pneumococcal polysaccharide 23 valent (Pneumovax 23) 2yo and older 12/25/2009 Td Tetanus diptheria (Tdvax) 7yo and older 12/07 Tdap Tetanus diptheria acell ular pertussis (Boostrix; Adacel) 7yo and older 05/16/2008 Zoster Live 01/02/2015 Surgical History Surgery Date Site/Laterality Comments KNEE ARTHROSCOPY Right PROCEDURE: WI ARTHROSCOPY KNEE DIAGNOSTIC W/WO SYNOVIAL BX SPX; COMMENT: 07/2019 PACEMAKER IMPLANT 2018 PROCEDURE: HISTORICAL PACEMAKER CHOLECYSTECTOMY PROCEDURE: HISTORICAL CHOLECYSTECTOMY CERVICAL BIOPSY W/ LOOP ELECTRODE EXCISION 2009 PROCEDURE: WI CONIZATION CERVIX W/WO D&C RPR ELTRD EXC CERVICAL BIOPSY W/ LOOP ELECTRODE EXCISION 02/25/2014 PROCEDURE: WI CONIZATION CERVIX W/WO D&C RPR ELTRD EXC; COMMENT: OSCAR 2, Negative Margins, negative ECC Medical History Medical History Date Comments Chronic kidney disease, stag e 3, mod decreased GFR (CMS/HCC V24, CMS/HCC V28) 10/23/2019 DX:Chronic kidney disease, s tage 3, mod decreased GFR (HCC) Fall (on) (from) unspecified stairs and steps, sequela 08/28/2019 DX:Fall (on) (from) unspecif ied stairs and steps, sequela GERD (gastroesophageal reflu x disease) 10/23/2019 DX:GERD (gastroesophageal re flux disease) History of third degree heart block 09/22/2019 DX:History of third degree heart block Hyperlipidemia 10/23/2019 DX:Hyperlipidemi a Hypertension 10/23/2019 DX:Hypertension Hyponatremia 09/18/2019 DX:Hyponatremia; COMMENT: History of chronic hyponatremia-during hospitalization please restriction improved sodium levels. Additional work-up ordered. 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 Ct left knee, recently done at [facility], seen by orthopedics Dr. joycelyn Avalos Pacemaker 09/17/2019 DX:Pacemaker; CO MMENT: In 11/2018-- ??bradycardia Has upcoming appt in 12/2019 with PVC cardio/ Type 2 diabetes mellitus wit h hyperosmolarity without coma, without long-term current use of insulin ([facility] V24, [facility] V28) 06/12/2019 DX:Type 2 diabetes mellitus with hyperosmolarity without coma, without long-term current use of insulin (HCC) Type 2 diabetes mellitus wit h renal manifestations (CMS/[facility] V24, [facility] V28) 10/23/2019 DX:Type 2 diabetes mellitus with renal manifestations (HCC) Abnormal Pap smear of cervix 12/10/2019 DX: Abnormal Pap smear of cervix; COMMENT: LGSIL Pyelonephritis 12/10/2019 DX:Pyelonephriti s; COMMENT: History Cranial nerve palsy 12/10/2019 DX:Cranial n erve palsy ARELLANO (nonalcoholic steatohepatitis) 12/10/2019 DX:ARELLANO (nonalcoholic steatohepatitis) Cystocele with uterine prolapse 12/10/2019 DX:Cystocele with uterine prolapse Osteopenia 12/10/2019 DX:Osteopenia Allergic rhinitis 12/10/2019 DX:Allergic rh initis Polyarthralgia 03/02/2021 DX:Polyarthralgi a; COMMENT: Followed by [facility] Family History Medical History Relation Name Comments Diabetes Mother HTN Relation Name Status Comments Mother Social History Tobacco Use Types Packs/Day Years Used Date Smoking Tobacco: Former Smokeless Tobacco: Never Tobacco Cessation:Counseling Given: Not Answered Alcohol Use Standard Drinks/Week Comments No 0 (1 standard drink = 0.6 oz pur e alcohol) Food Risk Answer Date Recorded Within the past 12 months we worried whether our food would run out before we got money to buy more. Never true 12/12/2024 Within the past 12 months th e food we bought just didn t last and we didn t have money to get more. Not on file 12/12/2024 Interpersonal Safety Answer Date Record ed Physical Abuse 07/31/2024 Verbal Abuse 07/31/2024 Comments No Sex and Gender Information Value Date Recorded Sex Assigned at Female 10/07/2024 3:18 PM EDT Legal Sex Female 9:25 AM EST Gender Identity Female 10/07/2024 3:18 PM EDT Sexual Orientation Not on file Obstetrics History Last Filed Vital Signs Vital Sign Reading Time Taken Comments Blood Pressure 138/60 03/04/2025 10:46 AM EDT Pulse 58 03/04/2025 10:46 AM EDT Temperature 36.6 C (97.9 F) 02/12/2025 10:42 AM EDT Respiratory Rate 18 12/26/2024 1:53 PM EDT Oxygen Saturation 98% 03/04/2025 10:46 AM EDT Inhaled Oxygen Concentration - - Weight 54.4 kg (120 lb) 12/26/2024 11:48 AM EDT Height 144.8 cm (4' 9 ) 12/26/2024 11:48 AM EDT Body Mass Index 25.97 12/26/2024 11:48 AM EDT Plan of Treatment Upcoming Encounters Date Type Department Care Team (Late st Contact Info) Description 06/10/2025 9:55 AM EST Office Visit [facility] - [facility] [address] [facility] [address] [place] [phone] David Valadez MD [address] [place] [address] [address] [place] [phone] 08/21/2025 2:45 PM EST Office Visit Nephrology - [place] [address] [place] [address] Desmond Soto MD [address] [facility] [address] [place] [phone] 09/25/2025 3:30 PM EST [facility]illary [facility] [address] [facility] [address] [place] [phone] Health Maintenance Due Date Last Done Comments COVID-19 Vaccine (#1) 1955 Diabetes: Annual Retina Eye Exam 11/18/1959 Zoster Vaccines (1 of 2) 02/27/2015 01/02/2015 Colorectal Cancer Screening: Colonoscopy 07/02/2022 Diabetes: Annual Foot Exam 05/16/2024 05/16/2023 Medicare Annual Wellness Visit 05/16/2024 05/16/2023 RSV Immunization Adult Patients (1 - 1-dose 75+ series) 2024 Influenza Vaccine (#1) 2025 9, 04/25/2018, 08/23/2017, Additional history exists Diabetes: Blood Sugar Control Test (HGBA1C) 06/21/2025 12/19/2024, 07/29/2024, 11/29/2023, Additional history exists Falls Risk Assessment 07/31/2025 07/31/2024, 023 Social Influencers of Health Screening 12/12/2025 12/12/2024 Diabetes: Annual Urine Albumin-Creatinine Ratio (uACR) 12/19/2025 12/19/2024, 11/29/2023 Diabetes: Annual GFR (Glomerular Filtration Rate) 12/26/2025 12/26/2024, 12/19/2024, 09/12/2024, Additional history exists Hypertension/CHF/CAD Annual BMP Blood Test 12/26/2025 12/26/2024, 12/19/2024, 09/12/2024, Additional history exists DTaP,Tdap,and Td Vaccines (3 - Td or Tdap) 12/08/2027 12/07/2017, 05/16/2008 Cholesterol Screening (Lipid Panel) 11/28/2028 11/29/2023, 11/29/2023 Osteoporosis Screening (Bone Density Screening) 06/24/2031 06/24/2021 Hepatitis C Screening Completed 05/18/2022 Breast Cancer Screening Discontinued 05/10/20, 11/09/2022, 12/02/2020 Pneumococcal Vaccine: 50+ Years Completed 05/17/2024, 06/30/2015, 12/25/2009 Depression Screening Completed 10/03/2024, 05/16/20 HIB Vaccines Aged Out No longer eligi ble based on patient's age to complete this topic HPV Vaccines Aged Out No longer eligi ble based on patient's age to complete this topic Hepatitis A Vaccines Aged Out No long er eligible based on patient's age to complete this topic Hepatitis B Vaccines Aged Out No long er eligible based on patient's age to complete this topic IPV Vaccines Aged Out No longer eligi ble based on patient's age to complete this topic MMR Vaccines Aged Out No longer eligi ble based on patient's age to complete this topic Meningococcal ACWY Vaccine Aged Out N o longer eligible based on patient's age to complete this topic Meningococcal B Vaccine Aged Out No l onger eligible based on patient's age to complete this topic RSV Immunization Patients Under 20 months Aged Out No longer eligible based on patient's age to complete this topic Varicella Vaccines Aged Out No longer eligible based on patient's age to complete this topic Medical Devices Implanted Type Area Suede Cleaner Device Identifier Shelf Expiration Date Model / Serial / Lot SanyaAl Detal 2272 Assurity Mri(Tm) [id number] Implanted: by David Valadez MD (Quantity not on file) Cardiac Pacemaker Left: Chest [employer] 2272 ASSURITY MRI(TM) / [id number] / [facility] Assurity Mri [id number] Implanted: (Quantity not on file) Cardiac Pacemaker [employer] MRI 2272 / [id number] / Procedures Procedure Name Priority Date/Time Associated Diagnosis Comments CARDIAC DEVICE CHECK- REMOTE- MURJ Routine 03/05/2025 3:22 PM EDT POC URINE NON-AUTO W/O MICRO Routine 03/04/2025 2:19 PM EDT Acute cystitis without hematuria CULTURE URINE Routine 03/04/2025 1:28 PM EDT Acute cystitis without hematuria COMPREHENSIVE METABOLIC PANEL STAT 12/26/2024 11:56 AM EDT MICROALBUMIN CREATININE URINE RATIO Routine 12/19/2024 12:05 PM EDT Mixed hyperlipidemia Type 2 diabetes mellitus with hyperosmolarity without coma, without long-term current use of insulin (CMS/HCC V24, CMS/HCC V28) Primary hypertension CKD (chronic kidney disease), stage II HEMOGLOBIN A1C Routine 12/19/2024 12:05 PM EDT Mixed hyperlipidemia Type 2 diabetes mellitus with hyperosmolarity without coma, without long-term current use of insulin (CMS/HCC V24, CMS/HCC V28) Primary hypertension CKD (chronic kidney disease), stage II FATOU SCREENING DIGITAL Routine 05/10/2024 7:06 AM EDT Encounter for screening mammogram for malignant neoplasm of breast LIPID PANEL Routine 11/29/2023 DEPRESSION SCREENING Routine 05/16/2023 FALLS RISK ASSESSMENT Routine 05/16/2023 DIABETES FOOT EXAM Routine 05/16/2023 HEPATITIS C SCREENING Routine 05/18/2022 DXA BONE DENSITY STUDY 1+ SITS AXIAL SKEL Routine 06/24/2021 1:24 PM EST Encounter for general adult medical examination without abnormal findings from Last 3 Months or Most Recently Relevant to Health Maintenance Results * Cardiac device check - Remote- MURJ (03/05/2025 3:22 PM EDT) Date Time Interrogation Session [id number] CV DEVICE CHECK Type Interrogation Session Remote Scheduled CV DEVICE CHECK Implantable Pulse Generator Suede [employer]er [employer] CV DEVICE CHECK Implantable Pulse Generator Type IPG CV DEVICE CHECK Implantable Pulse Generator Model 2272 Assurity MRI(TM) CV DEVICE CHECK Implantable Pulse Generator Serial Number [id number] CV DEVICE CHECK Implantable Pulse Generator Implant Date [id number] CV DEVICE CHECK Battery Remaining Percentage 40.00 CV DEVICE CHECK Battery Remaining Longevity 46.0 CV DEVICE CHECK Battery Voltage 2.960 CV D EVICE CHECK Battery SET MAKING MACHINE OPERATOR Trigger 2.600 CV DEVICE CHECK Battery Status Middle of Service CV DEVICE CHECK Orlin Statistic RA Percent Paced 39.00 CV DEVICE CHECK Orlin Statistic RV Percent Paced 99.00 CV DEVICE CHECK Atrial Tachy Statistic AT/AF North Percent 0.00 CV DEVICE CHECK Lead Channel Sensing Intrinsic Amplitude 2.500 CV DEVICE CHECK Lead Channel Setting Sensing Sensitivity 0.30 CV DEVICE CHECK Lead Channel Impedance Value 410 CV DEVICE CHECK Lead Channel Pacing Threshold Amplitude 0.500 CV DEVICE CHECK Lead Channel Pacing Threshold Pulse Width 0.5 CV DEVICE CHECK Lead Channel RA Pacing Threshold Date 2025-02-28 CV DEVICE CHECK Lead Channel Setting Pacing Amplitude 1.500 CV DEVICE CHECK Lead Channel Setting Pacing Pulse Width 0.5 CV DEVICE CHECK Lead Channel Sensing Intrinsic Amplitude 10.100 CV DEVICE CHECK Lead Channel Setting Sensing Sensitivity 0.50 CV DEVICE CHECK Lead Channel Impedance Value 410 CV DEVICE CHECK Lead Channel Pacing Threshold Amplitude 1.125 CV DEVICE CHECK Lead Channel Pacing Threshold Pulse Width 0.5 CV DEVICE CHECK Lead Channel RV Pacing Threshold Date 2025-02-28 CV DEVICE CHECK Lead Channel Setting Pacing Amplitude 1.375 CV DEVICE CHECK Lead Channel Setting Pacing Pulse Width 0.5 CV DEVICE CHECK Orlin Setting Mode (NBG Code) DDD CV DEVICE CHECK Orlin Setting Lower Rate Limit 60 CV DEVICE CHECK Orlin Setting AT Mode Switch Rate 180 CV DEVICE CHECK Orlin Setting Maximum Tracking Rate 130 CV DEVICE CHECK Orlin Setting Maximum Sensor Rate 130 CV DEVICE CHECK Orlin Setting PAV Delay 180 CV DEVICE CHECK Orlin Setting JANA Delay 150 CV DEVICE CHECK Date of Service 2025-03-12 CV DEVICE CHECK Anatomical Region Laterality Modality Device Interroga tion 02/28/2025 2:00 AM EDT Impressions 03/05/2025 1:56 PM EDT Normal Remote: No Events * Normal Device Function * Alerts or events: None * Battery: Battery is at 40%, 3.83 yrs * Sensing, impedance and thresholds reviewed * Programmed parameters reviewed * Presenting rhythm reviewed * Heart Rate Histograms reviewed * No significant changes noted Narrative Procedure Note David Valadez MD - 03/05/2025 IMPRESSION: Normal Remote: No Events * Normal Device Function * Alerts or events: None * Battery: Battery is at 40%, 3.83 yrs * Sensing, impedance and thresholds reviewed * Programmed parameters reviewed * Presenting rhythm reviewed * Heart Rate Histograms reviewed * No significant changes noted David Valadez MD CV IMPLANTABLE CARDIAC DEVICE PROCEDURES Final Result * (ABNORMAL) POC Urine Non-Auto W/O Micro (03/04/2025 2:19 PM EDT) GLUCOSE POC Negative Negative, Trace mg/dL Leukocytes UA POC 2+(A) Negative mg/dL Nitrite UA POC Negative Urobilinogen UA POC 0.2 E.U./dL mg/dL Protein UA POC Positive Positive, Negative PH UA POC 5.0 LAURA/HM UA POC Trace(A) Negative Specific Ary UA POC 1.015 Ketones UA POC Negative Negative Bilirubin UA POC Negative Negative Urine Urine specimen obtained by clean catch procedure / Unknown 03/04/2025 2:19 PM EDT Tiburcio PARDO POINT OF CARE TEST ENTER/E DIT ORDERABLES Final Result * Culture urine (03/04/2025 1:28 PM EDT) Culture, Urine <10,000 cfu/ml, insignificant count, no further workup. 03/05/2025 2:41 PM EDT [facility] Urine Urine specimen obtained by clean catch procedure / Unknown Non-blood Collection / Unknown 03/04/2025 1:28 PM EDT 03/04/2025 1:28 PM EDT Tiburcio PARDO LAB MICROBIOLOGY - GENERAL ORDERABLES Final Result [facility] [address] [place] [address], [place] [phone] * (ABNORMAL) Comprehensive metabolic panel (12/26/2024 11:56 AM EDT) Sodium 131(L) 133 - 145 mmol/L LAB CHEMISTRY METHOD 12/26/2024 12:37 PM [facility] Potassium 4.6 3.5 - 5.5 mmol/L LAB CHEMISTRY METHOD 12/26/2024 12:37 PM [facility] Chloride 101 96 - 110 mmol/L LAB CHEMISTRY METHOD 12/26/2024 12:37 PM [facility] CO2 23 21 - 32 mmol/L LAB CHEMISTRY METHOD 12/26/2024 12:37 PM [facility] Anion Gap 7 3 - 11 LAB CHEMISTRY METHOD 12/26/2024 12:37 PM [facility] Glucose 147(H) 70 - 100 mg/dL LAB CHEMISTRY METHOD 12/26/2024 12:37 PM [facility] BUN 16 5 - 25 mg/dL LAB CHEMISTRY METHOD 12/26/2024 12:37 PM [facility] Creatinine 0.68 0.50 - 1.10 mg/dL LAB CHEMISTRY METHOD 12/26/2024 12:37 PM [facility] eGFR 91 >=60 mL/min/1. 73m2 LAB CHEMISTRY METHOD 12/26/2024 12:37 PM [facility] Comment:Calculation based on the Chronic Kidney Disease Epidemiology Collaboration (CKD-EPI) equation refit without adjustment for race. BUN/Creatinine Ratio 23.5 LAB CHEMISTRY METHOD 12/26/2024 12:37 PM EDT [facility] Calcium 9.2 8.5 - 10.5 mg/dL LAB CHEMISTRY METHOD 12/26/2024 12:37 PM [facility] AST (SGOT) 18 10 - 42 unit/L LAB CHEMISTRY METHOD 12/26/2024 12:37 PM [facility] ALT (SGPT) 20 10 - 60 unit/L LAB CHEMISTRY METHOD 12/26/2024 12:37 PM [facility] Alkaline Phosphatase 108 42 - 121 unit/L LAB CHEMISTRY METHOD 12/26/2024 12:37 PM [facility] Total Protein 6.6 6.0 - 8.0 g/dL LAB CHEMISTRY METHOD 12/26/2024 12:37 PM [facility] Albumin 3.5 3.2 - 5.0 g/dL LAB CHEMISTRY METHOD 12/26/2024 12:37 PM [facility] Total Bilirubin 0.4 0.0 - 1.4 mg/dL LAB CHEMISTRY METHOD 12/26/2024 12:37 PM [facility] Blood Venous blood specimen / Unknown Venipuncture / Unknown 12/26/2024 11:56 AM EDT 12/26/2024 12:11 PM EDT Sharad Mcdaniel DO LAB BLOOD ORDERABLES Final Result [facility] [address] [place] [address], * (ABNORMAL) Microalbumin creatinine urine ratio (12/19/2024 12:05 PM EDT) Creatinine, Urine 67.0 mg/dL LAB CHEMISTRY METHOD 12/19/2024 5:44 PM T [facility] Microalb, Ur 36.8(H) 0.0 - 29.0 mg/L LAB CHEMISTRY METHOD 12/19/2024 5:44 PM EDT [facility] Microalb/Crea t Ratio 55(H) <30 mg/g creat LAB CHEMISTRY METHOD 12/19/2024 5:44 PM EDT [facility] Urine Urine specimen obtained by clean catch procedure / Unknown Non-blood Collection / Unknown 12/19/2024 12:05 PM EDT 12/19/2024 12:05 PM EDT Trudi PARDO LAB URINE ORDERABLES Fin al Result [facility] [address] [place] [address], [place] [phone] * Hemoglobin A1c (12/19/2024 12:05 PM EDT) Hemoglobin A1C 5.4 <6.5 % LAB CHEMISTRY METHOD 12/19/2024 4:37 PM EDT [facility] Mean Bld Glu Estim. 108 mg/dL LAB CHEMISTRY METHOD 12/19/2024 4:37 PM EDT [facility] Blood Venous blood specimen / Unknown Venipuncture / Unknown 12/19/2024 12:05 PM EDT 12/19/2024 12:05 PM EDT Trudi PARDO LAB BLOOD ORDERABLES Fin al Result [facility] [address] [place] [address], [place] [phone] * FATOU SCREENING DIGITAL (05/10/2024 7:06 AM EDT) Anatomical Region Laterality Modality Mammography 05/09/2024 10:5 1 AM EDT Narrative 05/10/2024 7:06 AM EDT [facility] Diagnostic Imaging Department [address] [place] [address] Patient: NELSY LISA /Age/Sex: 1950 - 73 - F Unit#: [id number] Location/Status: SPDIMA/REG CLI Mnemonic/Ordering Site: [facility] Ordering Physician: BRAN BOTELLO MD Fatou Screening Digital - 05/09/24 - 1111 Report Status:Signed EXAM: SCREENING MAMMOGRAPHY, BILATERAL HISTORY: SCREENING. No additional history. COMPARISON: 11/09/2022, 11/27/2020 TECHNIQUE: Synthesized CC and MLO projections of each breast. Tomosynthesis of each breast in the CC and MLO projections. ADDITIONAL IMAGING: None Computer-aided detection was employed with the [employer] AI 3-D. TISSUE DENSITY: There are scattered areas of fibroglandular density. (BI-RADS category B) FINDINGS: RIGHT BREAST: No suspicious mass. No suspicious calcification. No distortion. No additional suspicious right breast findings LEFT BREAST: No suspicious mass. No suspicious calcification. No distortion. A power generator obscures some of the anatomy. IMPRESSION: No mammographic evidence of malignancy. No suspicious interval change. A negative mammogram in the presence of a clinically suspicious palpable abnormality does not preclude the possibility of malignancy or alter the indications for biopsy. ASSESSMENT: BI-RADS 1: NEGATIVE RECOMMENDATION(S): 1: Routine screening mammogram BILATERAL in 1 year. Dictating Physician: Elva SAMPSON BRET MD Electronically Signed by: Elva SAMPSON BRET MD Dic Date/Time: 05/10/24701 Sign date/Time: 10/18/24 0706 Procedure Note Josiah Sampson MD - 05/21/2024 [facility] Diagnostic Imaging Department [address] [place] [id number] Patient: KDNELSY /Age/Sex: 1950 - 73 - F Unit#: [id number] Location/Status: [facility] CLI Mnemonic/Ordering Site: [facility] Ordering Physician: BRAN BOTELLO MD Fatou Screening Digital - 05/09/24 - 1110 Report Status:Signed EXAM: SCREENING MAMMOGRAPHY, BILATERAL HISTORY: SCREENING. No additional history. COMPARISON: 11/09/2022, 11/27/2020 TECHNIQUE: Synthesized CC and MLO projections of each breast.Tomosynthesis of each breast in the CC and MLO projections. ADDITIONAL IMAGING: None Computer-aided detection was employed with the [employer] AI 3-D. TISSUE DENSITY: There are scattered areas of fibroglandular density.(BI-RADS category B) FINDINGS: RIGHT BREAST: No suspicious mass. No suspicious calcification. No distortion. Noadditional suspicious right breast findings LEFT BREAST: No suspicious mass. No suspicious calcification. No distortion. Apower generator obscures some of the anatomy. IMPRESSION: No mammographic evidence of malignancy. No suspicious interval change. A negative mammogram in the presence of a clinically suspicious palpable abnormality does not preclude the possibility of malignancy or alter the indications for biopsy. ASSESSMENT: BI-RADS 1: NEGATIVE RECOMMENDATION(S): 1: Routine screening mammogram BILATERAL in 1 year. Dictating Physician: Elva SAMPSON BRET MD Electronically Signed by: Elva SAMPSON BRET MD Dic Date/Time: 05/10/24701 Sign date/Time: 05/10/24705 Result [facility] Bran Botello MD IMG BI PROCEDURES Final Res ult * Lipid panel (11/29/2023) [facility] LDL/HDL Ratio 3 0 - 4 Triglycerides 138 0 - 150 mg/dL Cholesterol 143 0 - 200 mg/dL HDL 53 >=40 mg/dL LDL Cholesterol 63 0 - 100 mg/dL Blood Venous blood specimen / Unknown Result [facility] Provider LAB BLOOD ORDERABLES Danya l Result * Falls Risk Assessment (05/16/2023) [facility] Falls Risk Assessment abstracted Result [facility] Provider HEALTH MAINTENANCE Final Result * Depression Screening (05/16/2023) [facility] Depression Screening abstracted Result [facility] Provider HEALTH MAINTENANCE Final Result * Diabetes Foot Exam (05/16/2023) [facility] Diabetes: Annual Foot Exam abstracted Result [facility] Provider HEALTH MAINTENANCE Final Result * Hepatitis C Screening (05/18/2022) [facility] Hepatitis C Screening abstracted Result [facility] Provider HEALTH MAINTENANCE Final Result * DXA BONE DENSITY STUDY 1+ SITS AXIAL SKEL (06/24/2021 1:24 PM EST) Anatomical Region Laterality Modality Bone Densitometr y 04/13/2021 2:26 PM EDT Narrative 06/24/2021 5:56 PM EST BONE DENSITY Lumbar Spine T-score is +1.1 (SD relative to 20-29 y/o adult) Z-score is +3.3 (SD relative to age matched peers) This is normal by criteria defined by the WHO. Left Hip T-score is -2.3 Z-score is -0.5 This is consistent with osteopenia by criteria defined by the WHO. Impression: Based on the World Health Organization criteria, Nelsy Lisa should be classified as having osteopenia. This patient has a 7.7% risk of major osteoporotic fracture and a 1.8% risk of hip fracture over the next 10 years. (World Health Organization Fracture Risk Assessment) [facility] Department of Internal Medicine recommends using National Osteoporosis Foundation (NOF) guidelines in treatment decisions related to osteoporosis. NOF guidelines suggest considering treatment for postmenopausal women and men aged 50 or older presenting with the following: History of hip or vertebral fracture. T-score less than or equal to -2.5 (DXA) at the femoral neck, total hip, or spine, after appropriate evaluation to exclude secondary causes. Low bone mass (T-score between -1.0 and -2.5 at the femoral neck or spine) AND a 10-year probability of a hip fracture greater than or equal to 3% OR a 10-year probability of a major osteoporosis-related fracture greater than or equal to 20% based on the [place]-adapted WHO algorithm Please note that all treatment decisions require clinical judgment and consideration of individual patient factors, including patient preferences, co-morbidities, previous drug use, risk factors not captured in the FRAX model (e.g., frailty, falls, vitamin D deficiency, increased bone turnover, interval significant decline in bone density) and possible under- or over-estimation of fracture risk by FRAX. Procedure Note Frida Rajput MD - 07/12/2022 BONE DENSITY Lumbar Spine T-score is +1.1 (SD relative to 20-29 y/o adult) Z-score is +3.3 (SD relative to age matched peers) This is normal by criteria defined by the WHO. Left Hip T-score is -2.3 Z-score is -0.5 This is consistent with osteopenia by criteria defined by the WHO. Impression: Based on the World Health Organization criteria, Nelsy Lisa should beclassified as having osteopenia. This patient has a 7.7% risk of majorosteoporotic fracture and a 1.8% risk of hip fracture over the next 10years. (World Health Organization Fracture Risk Assessment) [facility] Department of Internal Medicine recommendsusing National Osteoporosis Foundation (NOF) guidelines in treatmentdecisions related to osteoporosis. NOF guidelines suggest consideringtreatment for postmenopausal women and men aged 50 or older presentingwith the following: History of hip or vertebral fracture. T-score less than or equal to -2.5 (DXA) at the femoral neck, total hip,or spine, after appropriate evaluation to exclude secondary causes. Low bone mass (T-score between -1.0 and -2.5 at the femoral neck or spine)AND a 10-year probability of a hip fracture greater than or equal to 3% ORa 10-year probability of a major osteoporosis-related fracture greaterthan or equal to 20% based on the [place]-adapted WHO algorithm Please note that all treatment decisions require clinical judgment andconsideration of individual patient factors, including patientpreferences, co-morbidities, previous drug use, risk factors not capturedin the FRAX model (e.g., frailty, falls, vitamin D deficiency, increasedbone turnover, interval significant decline in bone density) and possibleunder- or over-estimation of fracture risk by FRAX. Lucia Yadav CNM IM DXA PROCEDURES Final Resu lt from Last 3 Months or Most Recently Relevant to Health Maintenance Insurance [employer] Member Subscriber Plan / Payer (Ef fective 2022-Present) Name:Nelsy Lisa Relation to Subscriber:Self Name:Nelsy Lisa Payer ID:[id number] Group ID:[id number] Type:Not on file Address: [address] [phone] Advance Directives Documents on File Type Date Recorded Patient Station Jailer Expl anation Health Care Decision (hx) 07/09/2015 AD MERCER DIRECTIVE Health Care Decision (hx) 07/09/2015 AD MERCER DIRECTIVE Health Care Decision (hx) 07/09/2015 AD MERCER DIRECTIVE Health Care Decision (hx) 07/09/2015 AD MERCER DIRECTIVE Health Care Decision (hx) 07/09/2015 AD MERCER DIRECTIVE Health Care Decision (hx) 07/09/2015 AD MERCER DIRECTIVE Health Care Decision (hx) 07/09/2015 AD MERCER DIRECTIVE Health Care Decision (hx) 07/09/2015 AD MERCER DIRECTIVE Health Care Decision (hx) 07/09/2015 AD MERCER DIRECTIVE Health Care Decision (hx) 07/09/2015 AD MERCER DIRECTIVE Health Care Decision (hx) 07/09/2015 AD MERCER DIRECTIVE Health Care Decision (hx) 07/09/2015 AD MERCER DIRECTIVE Health Care Decision (hx) 07/09/2015 AD MERCER DIRECTIVE Health Care Decision (hx) 07/09/2015 AD MERCER DIRECTIVE Health Care Decision (hx) 07/09/2015 AD MERCER DIRECTIVE Health Care Decision (hx) 07/09/2015 AD MERCER DIRECTIVE Health Care Decision (hx) 07/09/2015 AD MERCER DIRECTIVE Health Care Decision (hx) 07/09/2015 AD MERCER DIRECTIVE Health Care Decision (hx) 07/09/2015 AD MERCER DIRECTIVE Health Care Decision (hx) 07/09/2015 AD MERCER DIRECTIVE Health Care Decision (hx) 07/09/2015 AD MERCER DIRECTIVE Health Care Decision (hx) 07/09/2015 AD MERCER DIRECTIVE Health Care Decision (hx) 07/09/2015 AD MERCER DIRECTIVE Health Care Decision (hx) 07/09/2015 AD MERCER DIRECTIVE Health Care Decision (hx) 07/09/2015 AD MERCER DIRECTIVE Health Care Decision (hx) 07/09/2015 AD MERCER DIRECTIVE Health Care Decision (hx) 07/09/2015 AD MERCER DIRECTIVE Health Care Decision (hx) 07/09/2015 AD MERCER DIRECTIVE Health Care Decision (hx) 07/09/2015 AD MERCER DIRECTIVE Health Care Decision (hx) 07/09/2015 AD MERCER DIRECTIVE Health Care Decision (hx) 07/09/2015 AD MERCER DIRECTIVE Health Care Decision (hx) 07/09/2015 AD MERCER DIRECTIVE Health Care Decision (hx) 07/09/2015 AD MERCER DIRECTIVE Health Care Decision (hx) 07/09/2015 AD MERCER DIRECTIVE Health Care Decision (hx) 07/09/2015 AD MERCER DIRECTIVE Health Care Decision (hx) 07/09/2015 AD MERCER DIRECTIVE Health Care Decision (hx) 07/07/2015 AD MERCER DIRECTIVE Health Care Decision (hx) 07/07/2015 AD MERCER DIRECTIVE Health Care Decision (hx) 07/07/2015 AD MERCER DIRECTIVE Health Care Decision (hx) 07/07/2015 AD MERCER DIRECTIVE Health Care Decision (hx) 07/07/2015 AD MERCER DIRECTIVE Health Care Decision (hx) 07/07/2015 AD MERCER DIRECTIVE Health Care Decision (hx) 07/07/2015 AD MERCER DIRECTIVE Health Care Decision (hx) 07/07/2015 AD MERCER DIRECTIVE Health Care Decision (hx) 07/07/2015 AD MERCER DIRECTIVE Health Care Decision (hx) 07/07/2015 AD MERCER DIRECTIVE Health Care Decision (hx) 07/07/2015 AD MERCER DIRECTIVE Health Care Decision (hx) 07/07/2015 AD MERCRE DIRECTIVE Health Care Decision (hx) 07/07/2015 AD MERCER DIRECTIVE Health Care Decision (hx) 07/07/2015 AD MERCER DIRECTIVE Health Care Decision (hx) 07/07/2015 AD MERCER DIRECTIVE Health Care Decision (hx) 07/07/2015 AD MERCER DIRECTIVE Health Care Decision (hx) 07/07/2015 AD MERCER DIRECTIVE Health Care Decision (hx) 07/07/2015 AD MERCER DIRECTIVE Health Care Decision (hx) 07/07/2015 AD MERCER DIRECTIVE Health Care Decision (hx) 07/07/2015 AD MERCER DIRECTIVE Health Care Decision (hx) 07/07/2015 AD MERCER DIRECTIVE Health Care Decision (hx) 07/07/2015 AD MERCER DIRECTIVE Health Care Decision (hx) 07/07/2015 AD MERCER DIRECTIVE Health Care Decision (hx) 07/07/2015 AD MERCER DIRECTIVE Health Care Decision (hx) 07/07/2015 AD MERCER DIRECTIVE Health Care Decision (hx) 07/07/2015 AD MERCER DIRECTIVE Health Care Decision (hx) 07/07/2015 AD MERCER DIRECTIVE Health Care Decision (hx) 07/07/2015 AD MERCER DIRECTIVE Health Care Decision (hx) 07/07/2015 AD MERCER DIRECTIVE Health Care Decision (hx) 07/07/2015 AD MERCER DIRECTIVE Health Care Decision (hx) 07/07/2015 AD MERCER DIRECTIVE Health Care Decision (hx) 07/07/2015 AD MERCER DIRECTIVE Health Care Decision (hx) 07/07/2015 AD MERCER DIRECTIVE Health Care Decision (hx) 07/07/2015 AD MERCER DIRECTIVE Health Care Decision (hx) 07/07/2015 AD MERCER DIRECTIVE Health Care Decision (hx) 07/07/2015 AD MERCER DIRECTIVE * Full Code - Confirmed (Latest Code Status on File) Date Activated Date Inactivated Comments 07/29/2024 8:54 PM 07/31/2024 4:59 PM This code stat us was ascertained in the following way: Code status discussion: discussion with patient To update the patient's code status, place a code status order. Do not modify or discontinue any currently active code status orders. * Full Code - Default Date Activated Date Inactivated Comments 07/29/2024 7:05 PM 07/29/2024 8:54 PM This is order is used when code status has not been discussed with the patient, or code status is otherwise unknown/unconfirmed To update the patient's code status, place a code status order. Do not modify or discontinue any currently active code status orders. * Full Code - Default Date Activated Date Inactivated Comments 06/22/2024 4:06 PM 06/25/2024 6:52 PM This is ord er is used when code status has not been discussed with the patient, or code status is otherwise unknown/unconfirmed To update the patient's code status, place a code status order. Do not modify or discontinue any currently active code status orders. Care Teams Wholesale Account Manager Relationship Specialty Start Date End Date Bran Botello MD [address] [place] [address] PCP - General Internal Medicine 12/01/21
== END 2025-04-08 06:28 | disposition home or self-care (01) ==
LOC: CF 06:27
PROVIDERS: Visit Provider Anesthesiology
DX: M17.0 Bilateral primary osteoarthritis of knee (principal)
CPT/HCPCS: 64454; J2003; J2795; Q9967

== ENCOUNTER 2025-04-08 10:55 | Outpatient (AMB) | payer OTHER, SELFPAY ==
[2025-04-08 11:09] VITALS: BP 142/56; PULSE 63; RESP 18; O2SAT 98
--- NOTE | 2025-04-08 11:09 | MHC.OFFVIS ---
Vital Signs 04/08/25 11:09 Weight 119 lb BP 142/56 H Blood Pressure Location Lt brachial Position Sitting Respiration 18 Pulse 63 Pulse Source Pulse Oximeter Pulse Oximetry (%) 98 Oxygen Delivery Method Room Air Intake Visit Reasons: Left Diagnostic Genicular Nerve Block Casing Running Machine Tender Required: Yes Casing Running Machine Tender Name: hospital interp Allergies hydrochlorothiazide Allergy (Unknown, Verified 01/23/25 10:30) Rash tramadol Allergy (Unknown, Verified 01/23/25 10:30) tachycardia Physical Exam Vital Signs: Last Vital Signs Pulse 63 04/08/25 11:09 Resp 18 04/08/25 11:09 BP 142/56 H 04/08/25 11:09 Pulse Ox 98 04/08/25 11:09 Oxygen Delivery Method Room Air 04/08/25 11:09 Assessment & Plan Assessment & Plan (1) Osteoarthritis of knees, bilateral: Code(s): M17.0 - Bilateral primary osteoarthritis of knee Category: Medical (2) Bilateral knee pain: Code(s): M25.561 - Pain in right knee; M25.562 - Pain in left knee Category: Medical Plan Bilateral genicular nerve block. ?Informed consent was explained to the patient. All questions were explained and answered. The patient was taken inside the operating room. The patient was positioned supine on operating table with her?left leg elevated on a gel bin. ?Time-out was performed delineating correct site, side, the nature of the procedure, patient's allergy, preoperative antibiotic if needed. All operating room staff was participating in OR time-out procedure. C-arm was brought over the operating field and picture of the?left knee was demonstrated on the screen. Anterolateral and anteromedial surfaces of the knee were prepped with chloroprep and draped with utility towels. The point of interest were delineated for: 1.superior lateral genicular nerve as the confluence of the metaphysis of the? femur with corresponding diaphysis on the lateral silhouette of the femur distal bone, 2.superior medial genicular nerve (suprapatelar saphenous nerve) the point of interest was delineated as the confluence of the silhouette of metaphysis of the femur with corresponding diaphysis on the medial silhouette on the femoral distal bone. 3.inferior medial genicular nerve (suprapatellar saphenous nerve) the point of interest was delineated as the confluence of metaphysis of the proximal tibia on the medial side with corresponding diaphysis of the same bone. ?The projections of the points of interest on anterior surface of the left knee was injected with small amount of lidocaine 2% 1-to 2 ml. After that 3 22 gauge 3-1/2 inch needles were driven to? the point of interest in tunnel vision fashion. When needles gently contacted the bones the position of the C-arm was switched to the lateral view, care was taken to superimpose the the femoral condiles one over the other. The position of the needles were adjusted to assure that the tip of the canulas are located at the mid shaft of each of the above described bones. ?After that small amount of ropivacaine? 0.5%?1.5 mL was injected into each needle. Upon completion of the injection the needles were withdrawn, the prep was made separately on the right lower extremity with right lower extremity now elevated on the gel bin. After that procedure was performed on the right side in the mirroring fashion. The patient tolerated procedure well she was taken outside of the operating room to recovery room where she recovered uneventfully Orders: Orders [place] guidance in treatment room 04/08/25 M25.561 - Pain in right knee, M25.562 - Pain in left knee Coding Level of Care Code Procedure Only Diagnoses Osteoarthritis of knees, bilateral M17.0 Bilateral knee pain M25.561; M25.562
--- OUTSIDE RECORDS SUMMARY | 2025-04-08 14:39 | XMS_ITS | Clinical Summary ---
Author Organization 175 [facility] Address [address] [place] [address] Phone Care Team Providers Care Engineering Coordinator Name Role Phone Bran Botello MD Primary [...] disorder, without long-term current use of insulin ([facility] V24, CMS/[facility] V28) 07/14/2024 Coronary artery disease due to lipid rich plaque 07/14/2024 Chest pain 06/22/2024 Type 2 diabetes mellitus wit h hyperosmolarity without coma, without long-term current use of insulin ([facility] V24, CMS/[facility] V28) 05/08/2024 Rotator cuff arthropathy of both [...] disease, stag e 3, mod decreased GFR ([facility] V24, [facility] V28) 10/23/2019 GERD (gastroesophageal reflux disease) 0 [...] joint of left thumb 08/28/2019 Overview (05/08/2024): 08/07/2019/[facility] Osteoarthritis of both knees 08/28/2019 Overview (05/08/2024): Advanced tricompartmental degenerative changes, no fracture or dislocation. Ct left knee, recently done at [facility], seen by orthopedics Dr. 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 06/12/2019 Type 2 diabetes mellitus wit hout complication, without long-term current use of insulin ([facility] V24, [facility] V28) 06/12/2019 Encounters Date Type Department Care Team Description 03/28/2025 Telephone [facility] [address] [place] [phone] Bran Botello MD 03/05/2025 3:25 PM EDT Ancillary Procedure [facility] - [facility] [address] [facility] [address] [place] [address] 03/04/2025 11:00 AM EDT Office Visit [facility] [address] [place], [place] [phone] Tiburcio Simpson PA Acute cystitis without hematuria (Primary Dx) 03/03/2025 Telephone Adult Medicine [address] [place] [place] [address] Bran Botello MD 02/21/2025 Telephone [facility] - [address] [place] [address] Shellie Guerrero [place] 02/12/2025 11:00 AM EDT Office Visit Walk-[facility] - [facility] [address] [place] [address] Vishal Hdz, KJ Acute pain of mouth [...] Date Site/Laterality Comments KNEE ARTHROSCOPY Right PROCEDURE: MI ARTHROSCOPY KNEE DIAGNOSTIC W/WO SYNOVIAL BX SPX; COMMENT: 07/2019 PACEMAKER IMPLANT 2018 PROCEDURE: HISTORICAL PACEMAKER CHOLECYSTECTOMY PROCEDURE: HISTORICAL CHOLECYSTECTOMY CERVICAL BIOPSY W/ LOOP ELECTRODE EXCISION 2009 PROCEDURE: MI CONIZATION CERVIX W/WO D&C RPR ELTRD EXC CERVICAL BIOPSY W/ LOOP ELECTRODE EXCISION 02/25/2014 PROCEDURE: MI CONIZATION CERVIX W/WO D&C RPR ELTRD EXC; [...] of interphalangeal joint of left thumb; COMMENT: 08/07/2019/[facility] Osteoarthritis of both knees 08/28/2019 DX: Osteoarthritis of both knees; COMMENT: Advanced tricompartmental degenerative changes, no fracture or dislocation. Ct left knee, recently done at [facility], seen by orthopedics Dr. joycelyn Avalos Pacemaker 09/17/2019 DX:Pacemaker; CO MMENT: In 11/2018-- ??bradycardia Has upcoming appt in 12/2019 with PVC cardio/ Type 2 diabetes mellitus wit h hyperosmolarity without coma, without long-term current use of insulin ([facility] V24, [facility] V28) 06/12/2019 DX:Type 2 diabetes mellitus with hyperosmolarity without coma, without long-term current use of insulin (HCC) Type 2 diabetes mellitus wit h renal manifestations ([facility] V24, [facility] V28) 10/23/2019 DX:Type 2 diabetes mellitus with [...] Description 06/10/2025 9:55 AM EST Office Visit [facility] [address] [facility] [address] [place] [phone] David Valadez MD [address] [place] [address] [address] [place] [phone] 08/21/2025 2:45 PM EST Office Visit Nephrology - [place] [address] [place] [address] Desmond Soto MD [address] [facility] [address] [place] [phone] 09/25/2025 3:30 PM EST Ancillary Procedure [facility] [address] [facility] [address] [place] [phone] Health Maintenance Due Date Last Done Comments [...] this topic Medical Devices Implanted Type Area Hand I Blocker Device Identifier Shelf Expiration Date Model / Serial / Lot [id number] 2272 Assurity Mri(Tm) [id number] Implanted: by David Valadez MD (Quantity not on file) Cardiac Pacemaker Left: Chest [employer] 2272 ASSURITY MRI(TM) / [id number] / [facility] Assurity Mri [id number] Implanted: (Quantity not on file) Cardiac Pacemaker [employer] [employer] MRI 2272 / [id number] / Procedures Procedure Name Priority Date/Time Associated [...] 3:22 PM EDT) Date Time Interrogation Session [id number] CV DEVICE CHECK Type Interrogation Session Remote Scheduled CV DEVICE CHECK Implantable Pulse Generator Hand I Blocker [employer] CV DEVICE CHECK Implantable Pulse Generator Type IPG CV DEVICE CHECK Implantable Pulse Generator Model 2272 Assurity MRI(TM) CV DEVICE CHECK Implantable Pulse Generator Serial Number [id number] CV DEVICE CHECK Implantable Pulse Generator Implant Date [id number] CV DEVICE CHECK Battery Remaining Percentage 40.00 CV DEVICE CHECK Battery Remaining Longevity 46.0 CV DEVICE CHECK Battery Voltage 2.960 CV D EVICE CHECK Battery MOTOR TESTER Trigger 2.600 CV DEVICE CHECK Battery Status Middle of Service CV DEVICE CHECK Orlin Statistic RA Percent Paced 39.00 CV DEVICE CHECK Orlin Statistic RV Percent Paced 99.00 CV DEVICE CHECK Atrial Tachy Statistic AT/AF Locust Percent 0.00 CV DEVICE CHECK Lead Channel [...] 5.0 LAURA/HM UA POC Trace(A) Negative Specific Cushing UA POC 1.015 Ketones UA POC Negative Negative Bilirubin UA POC Negative Negative Urine Urine specimen obtained by clean catch procedure / Unknown 03/04/2025 2:19 PM EDT Tiburcio PARDO POINT OF CARE TEST ENTER/E DIT ORDERABLES Final Result * Culture urine (03/04/2025 1:28 PM EDT) Culture, Urine <10,000 cfu/ml, insignificant count, no further workup. 03/05/2025 2:41 PM EDT [facility] Urine Urine specimen obtained by clean catch procedure / Unknown Non-blood Collection / Unknown 03/04/2025 1:28 PM EDT 03/04/2025 1:28 PM EDT Tiburcio PARDO LAB MICROBIOLOGY - GENERAL ORDERABLES Final Result [facility] [address] [place] [address], [place] [phone] * (ABNORMAL) Comprehensive metabolic panel (12/26/2024 11:56 AM EDT) Sodium 131(L) 133 - 145 mmol/L LAB CHEMISTRY METHOD 12/26/2024 12:37 PM [facility] Potassium 4.6 3.5 - 5.5 mmol/L LAB CHEMISTRY METHOD 12/26/2024 12:37 PM [facility] Chloride 101 96 - 110 mmol/L LAB CHEMISTRY METHOD 12/26/2024 12:37 PM [facility] CO2 23 21 - 32 mmol/L LAB CHEMISTRY METHOD 12/26/2024 12:37 PM [facility] Anion Gap 7 3 - 11 LAB CHEMISTRY METHOD 12/26/2024 12:37 PM [facility] Glucose 147(H) 70 - 100 mg/dL LAB CHEMISTRY METHOD 12/26/2024 12:37 PM [facility] BUN 16 5 - 25 mg/dL LAB CHEMISTRY METHOD 12/26/2024 12:37 PM [facility] Creatinine 0.68 0.50 - 1.10 mg/dL LAB CHEMISTRY METHOD 12/26/2024 12:37 PM [facility] eGFR 91 >=60 mL/min/1. 73m2 LAB CHEMISTRY METHOD 12/26/2024 12:37 PM [facility] Comment:Calculation based on the Chronic Kidney Disease Epidemiology Collaboration (CKD-EPI) equation refit without adjustment for race. BUN/Creatinine Ratio 23.5 LAB CHEMISTRY METHOD 12/26/2024 12:37 PM EDT [facility] Calcium 9.2 8.5 - 10.5 mg/dL LAB CHEMISTRY METHOD 12/26/2024 12:37 PM [facility] AST (SGOT) 18 10 - 42 unit/L LAB CHEMISTRY METHOD 12/26/2024 12:37 PM [facility] ALT (SGPT) 20 10 - 60 unit/L LAB CHEMISTRY METHOD 12/26/2024 12:37 PM [facility] Alkaline Phosphatase 108 42 - 121 unit/L LAB CHEMISTRY METHOD 12/26/2024 12:37 PM [facility] Total Protein 6.6 6.0 - 8.0 g/dL LAB CHEMISTRY METHOD 12/26/2024 12:37 PM [facility] Albumin 3.5 3.2 - 5.0 g/dL LAB CHEMISTRY METHOD 12/26/2024 12:37 PM [facility] Total Bilirubin 0.4 0.0 - 1.4 mg/dL LAB CHEMISTRY METHOD 12/26/2024 12:37 PM [facility] Blood Venous blood specimen / Unknown Venipuncture / Unknown 12/26/2024 11:56 AM EDT 12/26/2024 12:11 PM EDT Sharad Mcdaniel DO LAB BLOOD ORDERABLES Final Result [facility] [address] [place] [address], * (ABNORMAL) Microalbumin creatinine urine ratio (12/19/2024 12:05 PM EDT) Creatinine, Urine 67.0 mg/dL LAB CHEMISTRY METHOD 12/19/2024 5:44 PM T [facility] Microalb, Ur 36.8(H) 0.0 - 29.0 mg/L LAB CHEMISTRY METHOD 12/19/2024 5:44 PM EDT [facility] Microalb/Crea t Ratio 55(H) <30 mg/g creat LAB CHEMISTRY METHOD 12/19/2024 5:44 PM EDT [facility] Urine Urine specimen obtained by clean catch procedure / Unknown Non-blood Collection / Unknown 12/19/2024 12:05 PM EDT 12/19/2024 12:05 PM EDT Trudi PARDO LAB URINE ORDERABLES Fin al Result [facility] [address] [place] [address], [place] [phone] * Hemoglobin A1c (12/19/2024 12:05 PM EDT) Hemoglobin A1C 5.4 <6.5 % LAB CHEMISTRY METHOD 12/19/2024 4:37 PM EDT [facility] Mean Bld Glu Estim. 108 mg/dL LAB CHEMISTRY METHOD 12/19/2024 4:37 PM EDT [facility] Blood Venous blood specimen / Unknown Venipuncture / Unknown 12/19/2024 12:05 PM EDT 12/19/2024 12:05 PM EDT Trudi PARDO LAB BLOOD ORDERABLES Fin al Result [facility] [address] [place] [address], [place] [phone] * FATOU SCREENING DIGITAL (05/10/2024 7:06 AM EDT) Anatomical Region Laterality Modality Mammography 05/09/2024 10:5 1 AM EDT Narrative 05/10/2024 7:06 AM EDT [facility] Diagnostic Imaging Department [address] [place] [address] Patient: NELSY LISA /Age/Sex: 1950 - 73 - F Unit#: [id number] Location/Status: SPDIMA/REG CLI Mnemonic/Ordering Site: [facility] Ordering Physician: BRAN BOTELLO MD Fatou Screening Digital - 05/09/24 - 1111 Report Status:Signed EXAM: SCREENING MAMMOGRAPHY, BILATERAL HISTORY: SCREENING. No additional history. COMPARISON: 11/09/2022, 11/27/2020 TECHNIQUE: Synthesized CC and MLO projections of each breast. Tomosynthesis of each breast in the CC and MLO projections. ADDITIONAL IMAGING: None Computer-aided detection was employed with the [employer] AI 3-D. TISSUE DENSITY: There are scattered [...] Procedure Note Josiah Sampson MD - 05/21/2024 [facility] Diagnostic Imaging Department [address] [place] [address] Patient: KDNELSY /Age/Sex: 1950 - 73 - F Unit#: [id number] Location/Status: [facility] CLI Mnemonic/Ordering Site: [facility] Ordering Physician: BRAN BOTELLO MD Fatou Screening Digital - 05/09/24 - 1110 Report Status:Signed EXAM: SCREENING MAMMOGRAPHY, BILATERAL HISTORY: SCREENING. No additional history. COMPARISON: 11/09/2022, 11/27/2020 TECHNIQUE: Synthesized CC and MLO projections of each breast.Tomosynthesis of each breast in the CC and MLO projections. ADDITIONAL IMAGING: None Computer-aided detection was employed with the [employer] AI 3-D. TISSUE DENSITY: There are scattered [...] Dic Date/Time: 05/10/24701 Sign date/Time: 05/10/[address] [facility] Bran Botello MD IMG BI PROCEDURES Final Res ult * Lipid panel (11/29/2023) [facility] LDL/HDL Ratio 3 0 - 4 Triglycerides 138 0 - 150 mg/dL Cholesterol 143 0 - 200 mg/dL HDL 53 >=40 mg/dL LDL Cholesterol 63 0 - 100 mg/dL Blood Venous blood specimen / Unknown Result [facility] Provider LAB BLOOD ORDERABLES Danya l Result * Falls Risk Assessment (05/16/2023) [facility] Falls Risk Assessment abstracted Result [facility] Provider HEALTH MAINTENANCE Final Result * Depression Screening (05/16/2023) [facility] Depression Screening abstracted Result [facility] Provider HEALTH MAINTENANCE Final Result * Diabetes Foot Exam (05/16/2023) [facility] Diabetes: Annual Foot Exam abstracted Result [facility] Provider HEALTH MAINTENANCE Final Result * Hepatitis C Screening (05/18/2022) [facility] Hepatitis C Screening abstracted Result [facility] Provider HEALTH MAINTENANCE Final Result * [...] (World Health Organization Fracture Risk Assessment) The [facility] Department of Internal Medicine recommends using National [...] (World Health Organization Fracture Risk Assessment) The [facility] Department of Internal Medicine recommendsusing National Osteoporosis [...] Group ID:[id number] Type:Not on file Address: [address] [address] Advance Directives Documents on File Type Date Recorded Patient Fixture Builder Expl anation Health Care Decision (hx) 07/09/2015 [...] currently active code status orders. Care Teams Engineering Coordinator Relationship Specialty Start Date End Date Bran Botello MD [address] [place] [address] PCP - General Internal Medicine 12/01/21
== END 2025-04-08 11:39 | disposition home or self-care (01) ==
PROVIDERS: PCP Internal Medicine; Visit Provider Anesthesiology
DX: M17.0 Bilateral primary osteoarthritis of knee (principal); M25.561 Pain in right knee; M25.562 Pain in left knee
CPT/HCPCS: 64454

== ENCOUNTER 2025-04-10 09:51 | Outpatient (AMB) | payer OTHER, SELFPAY ==
--- NOTE | 2025-04-10 10:00 | MHC.OFFVIS ---
Vital Signs 04/10/25 10:01 Weight 119 lb BP 161/67 H Blood Pressure Location Lt brachial Position Sitting Respiration 18 Pulse 61 Pulse Source Pulse Oximeter Pulse Oximetry (%) 99 Oxygen Delivery Method Room Air Intake Visit Reasons: S/P Left Diagnostic Genicular Nerve Block Allergies hydrochlorothiazide Allergy (Unknown, Verified 04/10/25 10:00) Rash tramadol Allergy (Unknown, Verified 04/10/25 10:00) tachycardia HPI Comments Details: Stephanie is back in my office after diagnostic bilateral genicular nerve block. The patient reported excellent pain relief on the both knees after the procedure. Her pain decreased started to go slowly however by the 3 hours after the procedure her pain was 0/10. She continues to enjoy no pain in the right knee, she reports pain 1 to 2/10 in the left knee today 48 hours after the procedure. She reports much improved mobility and activities of daily living. She reports today that her lower back pain became worse. I will invite this patient in 2 weeks to discuss her lower back pain. I will schedule her for bilateral left 1st and right 2nd cooled radiofrequency ablation of the knees. Prior advanced osteoarthritis in multiple locations. complains on pain in bilateral shoulders pain in bilateral knees and pain in bilateral lower extremities and pain in the lower back. She reports the lower back pain radiates into the right lower extremity. She reports that radiation ends in the 2nd toe. She reports her pain today 10/10. She is severely disabled. She needs walker for ambulation. Weather changes in movements aggravate her pain. For her pain control she takes Tylenol Arthritis. She never had MRI or CT scan of her lumbar spine. MRI is contraindicated for the patient because she has a pacemaker. She had physical therapy for the knees and shoulders but not for her lower back. She on physical exam has her knees grossly deformed and probably destroyed by the arthritis. In the past she received knee injections and shoulder injections however she denied any help from steroid injections. Review of Systems Const All systems reviewed & are unremarkable except as noted in HPI and below ENT Reports Normal hearing present Neuro Reports Normal hearing present, Denies Abnormal speech present, Denies confusion and Denies Sensory deficit (Neuro) Psych Denies confusion Physical Exam Vital Signs: Last Vital Signs Pulse 61 04/10/25 10:01 Resp 18 04/10/25 10:01 BP 161/67 H 04/10/25 10:01 Pulse Ox 99 04/10/25 10:01 Oxygen Delivery Method Room Air 04/10/25 10:01 Const General: no acute distress; No confusion Orientation/consciousness: patient oriented x3 and No confusion Limitations: language barrier Eyes General: appearance normal, both eyes and all related structures Pupils: Equal, round and reactive pupils present EOM: EOMs intact bilaterally Neck Neck: Yes full ROM Chest Chest palpation & inspection: normal inspection of the chest Resp Effort & Inspection: normal respiratory effort, able to speak in complete sentences, normal respiratory pattern, no audible wheezes and no cough Cardio Jugular venous distension: no JVD GI Inspection: Yes normal to inspection Back/Spine/Pelvis Other: Severe tenderness on palpation in projection of the most lower portion of the lumbar spine. SLR is positive bilaterally. Lasegue test is positive bilaterally. Valsalva maneuver aggravates patient's pain. Neuro General: patient oriented x3, gait normal and No confusion Cranial nerves: Yes CN's II-XII intact bilaterally, Yes Equal, round and reactive pupils present, Yes Normal hearing present and Yes Ability to bilaterally elevate shoulders present Speech: No Abnormal speech present Gait exam (Neuro): Normal gait present Motor exam (neuro): 5/5 motor strength present throughout Sensory Exam: No Sensory deficit (Neuro) Extrem Other: On inspection of the bilateral knees: Gross deformity demonstrating end-stage terminal knee osteoarthritis. General: No pedal edema Psych Speech and movement: Normal speech and movement present Affect: normal affect Attitude: cooperative Thought process: Normal thought process present Thought content: Normal thought content present Insight: Good insight present (Psych) Judgement: Good judgement present (Psych) Assessment & Plan Assessment & Plan (1) Osteoarthritis of knees, bilateral: Code(s): M17.0 - Bilateral primary osteoarthritis of knee Category: Medical (2) Radiculopathy, lumbar region: Code(s): M54.16 - Radiculopathy, lumbar region Category: Medical (3) Spondylosis of lumbar region without myelopathy or radiculopathy: Code(s): M47.816 - Spondylosis without myelopathy or radiculopathy, lumbar region Category: Medical (4) Disc degeneration, lumbar: Code(s): M51.369 - Other intervertebral disc degeneration, lumbar region without mention of lumbar back pain or lower extremity pain Category: Medical (5) Chronic pain syndrome: Code(s): G89.4 - Chronic pain syndrome Category: Medical (6) Bilateral knee pain: Code(s): M25.561 - Pain in right knee; M25.562 - Pain in left knee Category: Medical Plan Very good results of bilateral genicular nerve block. I will schedule left side RFA 1st and follow with the right side RFA a week after the 1st procedure. Next time she is in my office in couple of weeks I will discuss possibility of diagnose in her lower back pain with CT scan with and without contrast. Unfortunately she has a pacemaker and she can not go for the MRI. As of her lower back pain I am pretty confident that she has radiculopathy. Patient Instructions: I here by testify that I spent 32 minutes in conversation with this patient as well as evaluating her prior records, evaluating her prior diagnostic studies, planning her care, and organizing this note. Coding Level of Care Code Est Pt Level 4 (93004) Diagnoses Osteoarthritis of knees, bilateral M17.0 Radiculopathy, lumbar region M54.16 Spondylosis of lumbar region without myelopathy or radiculopathy M47.816 Disc degeneration, lumbar M51.369 Chronic pain syndrome G89.4 Bilateral knee pain M25.561; M25.562
[2025-04-10 10:01] VITALS: BP 161/67; PULSE 61; RESP 18; O2SAT 99
--- OUTSIDE RECORDS SUMMARY | 2025-04-10 11:30 | XMS_ITS | Clinical Summary ---
Author Organization [facility] Address [address] [place] [address] Care Team Providers Care Rebar Worker Name Role Phone Bran Vásquez MD Primary Care Provider [phone] Allergies Active Allergy Reactions Criticality Noted Date [...] 20 mg by mouth daily. 0 Active [place]-3 1000 MG CAPS Take 1 capsule by [...] dislocation. Ct left knee, recently done at [facility], seen by orthopedics Dr. joycelyn Avalos Social [...] 75+ series) 2024 Influenza Vaccine (#1) 2025 06/12/2019 Hepatitis B Vaccines Aged Out No long er eligible based on patient's age to complete this topic RSV Ped < 20 months Aged Out No longe r eligible based on patient's age to complete this topic Care Teams Rebar Worker Relationship Specialty Start Date End Date Bran Vásquez MD [address] [place] [id number] PCP - General Hospitalist Medicine 09/30/23
--- OUTSIDE RECORDS SUMMARY | 2025-04-10 11:30 | XMS_ITS | Clinical Summary ---
Author Organization 175 [facility] Address [address] [place] [address] Phone Care Team Providers Care Rn Manager Name Role Phone Bran Botello MD [...] 120 capsule 3 11/27/19 25 2024 Discontinued Active Problems Problem Noted Date Diagnosed Date Hypomagnesemia 09/30/2024 Type 2 diabetes mellitus wit h circulatory disorder, without long-term current use of insulin ([facility] V24, [facility] V28) 07/14/2024 Coronary artery disease due to lipid rich plaque 07/14/2024 Chest pain 06/22/2024 Type 2 diabetes mellitus wit h hyperosmolarity without coma, without long-term current use of insulin ([facility] V24, [facility] V28) 05/08/2024 Rotator cuff arthropathy [...] disease, stag e 3, mod decreased GFR ([facility] V24, [facility] V28) 10/23/2019 GERD (gastroesophageal reflux [...] joint of left thumb 08/28/2019 Overview (05/08/2024): 08/07/2019/[facility] Osteoarthritis of both knees 08/28/2019 Overview (05/08/2024): Advanced tricompartmental degenerative changes, no fracture or dislocation. Ct left knee, recently done at [facility], seen by orthopedics Dr. 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 06/12/2019 Type 2 diabetes mellitus wit hout complication, without long-term current use of insulin ([facility] V24, [facility] V28) 06/12/2019 Encounters Date Type Department Care Team Description 03/28/2025 Telephone Adult Medicine [address] [phone] Bran Botello MD 03/05/2025 3:25 PM EDT Ancillary Procedure [facility] - [facility] [address] [facility] [address] [place] [id number] 03/04/2025 11:00 AM EDT Office Visit [facility] [address] [place] [address] Tiburcio Simpson PA Acute cystitis without hematuria (Primary Dx) 03/03/2025 Telephone Adult Medicine [address] [phone] Bran Botello MD 02/21/[address] [facility] - [address] [place] [address] Shellie Guerrero [place] 02/12/2025 11:00 AM EDT Office Visit [facility] - [facility] [address] [facility] [place] [phone] Vishal Hdz, KJ Acute pain of mouth [...] Date Site/Laterality Comments KNEE ARTHROSCOPY Right PROCEDURE: MD ARTHROSCOPY KNEE DIAGNOSTIC W/WO SYNOVIAL BX SPX; COMMENT: 07/2019 PACEMAKER IMPLANT 2018 PROCEDURE: HISTORICAL PACEMAKER CHOLECYSTECTOMY PROCEDURE: HISTORICAL CHOLECYSTECTOMY CERVICAL BIOPSY W/ LOOP ELECTRODE EXCISION 2009 PROCEDURE: MD CONIZATION CERVIX W/WO D&C RPR ELTRD EXC CERVICAL BIOPSY W/ LOOP ELECTRODE EXCISION 02/25/2014 PROCEDURE: MD CONIZATION CERVIX W/WO D&C RPR ELTRD EXC; COMMENT: OSCAR 2, Negative Margins, negative ECC Medical History Medical History Date Comments Chronic kidney disease, stag e 3, mod decreased GFR (CMS/HCC V24, CMS/HCC V28) 10/23/2019 DX:Chronic kidney disease, s tage 3, mod decreased GFR ([facility]) Fall (on) (from) unspecified stairs and steps, [...] of interphalangeal joint of left thumb; COMMENT: 08/07/2019/[facility] Osteoarthritis of both knees 08/28/2019 DX: Osteoarthritis of both knees; COMMENT: Advanced tricompartmental degenerative changes, no fracture or dislocation. Ct left knee, recently done at [facility], seen by orthopedics Dr. joycelyn Avalos Pacemaker 09/17/2019 DX:Pacemaker; CO MMENT: In 11/2018-- ??bradycardia Has upcoming appt in 12/2019 with PVC cardio/ Type 2 diabetes mellitus wit h hyperosmolarity without coma, without long-term current use of insulin (CMS/HCC V24, [facility] V28) 06/12/2019 DX:Type 2 diabetes mellitus with hyperosmolarity without coma, without long-term current use of insulin (HCC) Type 2 diabetes mellitus wit h renal manifestations (CMS/HCC V24, CMS/HCC V28) 10/23/2019 DX:Type 2 diabetes mellitus with [...] Description 06/10/2025 9:55 AM EST Office Visit [facility] - [address] [facility] [address] [place] [address] David Valadez MD [address] [place] [address] [address] [place] [phone] 08/21/2025 2:45 PM EST Office Visit Nephrology - [place] [address] [place] [address] Desmond Soto MD [address] [facility] [address] [place] [address] 09/25/2025 3:30 PM EST Ancillary Procedure [facility] [address] [facility] [address] [place] [address] Health Maintenance Due Date Last Done Comments [...] 06/30/2015, 12/25/2009 Depression Screening Completed 10/03/2024, 05/16/20 23 HIB Vaccines Aged Out No longer eligi [...] this topic Medical Devices Implanted Type Area Job Molder Device Identifier Shelf Expiration Date Model / Serial / Lot [employer] 2272 Assurity Mri(Tm) [id number] Implanted: by David Valadez MD (Quantity not on file) Cardiac Pacemaker Left: Chest [employer] 2272 ASSURITY MRI(TM) / [id number] / Abbt-Stju Assurity Mri [id number] Implanted: (Quantity not on file) Cardiac Pacemaker [employer] ASS[employer] MRI 2272 / [id number] / Procedures Procedure Name Priority Date/Time Associated Diagnosis Comments CARDIAC DEVICE CHECK- REMOTE- MUR Routine 03/05/2025 3:22 PM EDT POC URINE NON-AUTO W/O MICRO Routine 03/04/2025 2:19 PM EDT Acute cystitis without hematuria CULTURE URINE Routine 03/04/2025 1:28 PM EDT Acute cystitis without hematuria COMPREHENSIVE METABOLIC PANEL STAT 12/26/2024 11:56 AM EDT MICROALBUMIN CREATININE URINE RATIO Routine 12/19/2024 12:05 PM EDT Mixed hyperlipidemia Type 2 diabetes mellitus with hyperosmolarity without coma, without long-term current use of insulin (CMS/[facility] V24, CMS/[facility] V28) Primary hypertension CKD (chronic kidney disease), stage II HEMOGLOBIN A1C Routine 12/19/2024 12:05 PM EDT Mixed hyperlipidemia Type 2 diabetes mellitus with hyperosmolarity without coma, without long-term current use of insulin (CMS/HCC V24, CMS/HCC V28) Primary hypertension CKD (chronic kidney disease), stage II FTAOU SCREENING DIGITAL Routine 05/10/2024 7:06 AM EDT [...] 3:22 PM EDT) Date Time Interrogation Session [id number] CV DEVICE CHECK Type Interrogation Session Remote Scheduled CV DEVICE CHECK Implantable Pulse Generator Job Molder [employer] CV DEVICE CHECK Implantable Pulse Generator Type IPG CV DEVICE CHECK Implantable Pulse Generator Model 2272 Assurity MRI(TM) CV DEVICE CHECK Implantable Pulse Generator Serial Number [id number] CV DEVICE CHECK Implantable Pulse Generator Implant Date [id number] CV DEVICE CHECK Battery Remaining Percentage 40.00 CV DEVICE CHECK Battery Remaining Longevity 46.0 CV DEVICE CHECK Battery Voltage 2.960 CV D EVICE CHECK Battery WOOD SAWYER Trigger 2.600 CV DEVICE CHECK Battery Status Middle of Service CV DEVICE CHECK Orlin Statistic RA Percent Paced 39.00 CV DEVICE CHECK Orlin Statistic RV Percent Paced 99.00 CV DEVICE CHECK Atrial Tachy Statistic AT/AF Mcdonald Percent 0.00 CV DEVICE CHECK Lead Channel [...] 5.0 LAURA/HM UA POC Trace(A) Negative Specific Ward UA POC 1.015 Ketones UA POC Negative Negative Bilirubin UA POC Negative Negative Urine Urine specimen obtained by clean catch procedure / Unknown 03/04/2025 2:19 PM EDT us Tiburcio PARDO POINT OF CARE TEST ENTER/E DIT ORDERABLES Final Result * Culture urine (03/04/2025 1:28 PM EDT) Culture, Urine <10,000 cfu/ml, insignificant count, no further workup. 03/05/2025 2:41 PM EDT [facility] Urine Urine specimen obtained by clean catch procedure / Unknown Non-blood Collection / Unknown 03/04/2025 1:28 PM EDT 03/04/2025 1:28 PM EDT us Tiburcio PARDO LAB MICROBIOLOGY - GENERAL ORDERABLES Final Result [facility] [address] [place] [address], * (ABNORMAL) Comprehensive metabolic panel (12/26/2024 11:56 AM EDT) Sodium 131(L) 133 - 145 mmol/L LAB CHEMISTRY METHOD 12/26/2024 12:37 PM [facility] Potassium 4.6 3.5 - 5.5 mmol/L LAB CHEMISTRY METHOD 12/26/2024 12:37 PM [facility] Chloride 101 96 - 110 mmol/L LAB CHEMISTRY METHOD 12/26/2024 12:37 PM [facility] CO2 23 21 - 32 mmol/L LAB CHEMISTRY METHOD 12/26/2024 12:37 PM [facility] Anion Gap 7 3 - 11 LAB CHEMISTRY METHOD 12/26/2024 12:37 PM [facility] Glucose 147(H) 70 - 100 mg/dL LAB CHEMISTRY METHOD 12/26/2024 12:37 PM [facility] BUN 16 5 - 25 mg/dL LAB CHEMISTRY METHOD 12/26/2024 12:37 PM [facility] Creatinine 0.68 0.50 - 1.10 mg/dL LAB CHEMISTRY METHOD 12/26/2024 12:37 PM [facility] eGFR 91 >=60 mL/min/1. 73m2 LAB CHEMISTRY METHOD 12/26/2024 12:37 PM [facility] Comment:Calculation based on the Chronic Kidney Disease Epidemiology Collaboration (CKD-EPI) equation refit without adjustment for race. BUN/Creatinine Ratio 23.5 LAB CHEMISTRY METHOD 12/26/2024 12:37 PM [facility] Calcium 9.2 8.5 - 10.5 mg/dL LAB CHEMISTRY METHOD 12/26/2024 12:37 PM [facility] AST (SGOT) 18 10 - 42 unit/L LAB CHEMISTRY METHOD 12/26/2024 12:37 PM EDT [facility] ALT (SGPT) 20 10 - 60 unit/L LAB CHEMISTRY METHOD 12/26/2024 12:37 PM EDT [facility] Alkaline Phosphatase 108 42 - 121 unit/L LAB CHEMISTRY METHOD 12/26/2024 12:37 PM EDT [facility] Total Protein 6.6 6.0 - 8.0 g/dL LAB CHEMISTRY METHOD 12/26/2024 12:37 PM EDT [facility] Albumin 3.5 3.2 - 5.0 g/dL LAB CHEMISTRY METHOD 12/26[facility]24 12:[facility] Total Bilirubin 0.4 0.0 - 1.4 mg/dL LAB CHEMISTRY METHOD 12/26/2024 12:37 PM T [facility] Blood Venous blood specimen / Unknown Venipuncture / Unknown 12/26/2024 11:56 AM EDT 12/26/2024 12:11 PM EDT us Sharad Mcdaniel DO LAB BLOOD ORDERABLES Final Result [facility] [address] [place] [address], * (ABNORMAL) Microalbumin creatinine urine ratio (12/19/2024 12:05 PM EDT) Creatinine, Urine 67.0 mg/dL LAB CHEMISTRY METHOD 12/19/2024 5:44 PM EDT [facility] Microalb, Ur 36.8(H) 0.0 - 29.0 mg/L LAB CHEMISTRY METHOD 12/19/2024 5:44 PM EDT [facility] Microalb/Crea t Ratio 55(H) <30 mg/g creat LAB CHEMISTRY METHOD 12/19/2024 5:44 PM EDT [facility] Urine Urine specimen obtained by clean catch procedure / Unknown Non-blood Collection / Unknown 12/19/2024 12:05 PM EDT 12/19/2024 12:05 PM EDT Trudi PARDO LAB URINE ORDERABLES Fin al Result Performing Organization Address City/[facility]/ZIP Co de Phone Number [facility] [address] [place] [address], * Hemoglobin A1c (12/19/2024 12:05 PM EDT) Hemoglobin A1C 5.4 <6.5 % LAB CHEMISTRY METHOD 12/19/2024 4:37 PM EDT [facility] Mean Bld Glu Estim. 108 mg/dL LAB CHEMISTRY METHOD 12/19/2024 4:37 PM EDT [facility] Blood Venous blood specimen / Unknown Venipuncture / Unknown 12/19/2024 12:05 PM EDT 12/19/2024 12:05 PM EDT Trudi PARDO LAB BLOOD ORDERABLES Fin al Result Performing Organization Address City/[facility]/ZIP Co de Phone Number [facility] [address] [place] [address], * FATOU SCREENING DIGITAL (05/10/2024 7:06 AM EDT) Anatomical Region Laterality Modality Mammography 05/09/2024 10:5 1 AM EDT Narrative 05/10/2024 7:06 AM EDT Diagnostic Imaging Department [address] [place] [address] Patient: NELSY LISA /Age/Sex: 1950 73 - F Unit#: [id number] Location/Status: SPDIMAM/REG CLI Mnemonic/Ordering Site: [facility] Ordering Physician: BRAN BOTELLO MD Fatou Screening Digital - 05/09/24 - 1111 Report Status:Signed EXAM: SCREENING MAMMOGRAPHY, BILATERAL HISTORY: SCREENING. No additional history. COMPARISON: 11/09/2022, 11/27/2020 TECHNIQUE: Synthesized CC and MLO projections of each breast. Tomosynthesis of each breast in the CC and MLO projections. ADDITIONAL IMAGING: None Computer-aided detection was employed with the [employer] AI 3-D. TISSUE DENSITY: There are scattered [...] MD Dic Date/Time: 05/10/24701 Sign date/Time: 05/10/24705 Procedure Note Josiah Sampson MD - 05/21/2024 Diagnostic Imaging Department [address] [place] [address] Patient: NELSY LISA /Age/Sex: 1950 - 73 - F Unit#: [id number] Location/Status: [facility]/REG CLI Mnemonic/Ordering Site: [facility] Ordering Physician: BRAN BOTELLO MD Fatou Screening Digital - 05/09/24 - 1111 Report Status:Signed EXAM: SCREENING MAMMOGRAPHY, BILATERAL HISTORY: SCREENING. No additional history. COMPARISON: 11/09/2022, 11/27/2020 TECHNIQUE: Synthesized CC and MLO projections of each breast.Tomosynthesis of each breast in the CC and MLO projections. ADDITIONAL IMAGING: None Computer-aided detection was employed with the [employer] AI 3-D. TISSUE DENSITY: There are scattered [...] MD Dic Date/Time: 05/10/24701 Sign date/Time: 05/10/24705 us Bran Botello MD IMG BI PROCEDURES Final Res ult * Lipid panel (11/29/2023) [facility] LDL/HDL Ratio 3 0 - 4 Triglycerides 138 0 - 150 mg/dL Cholesterol 143 0 - 200 mg/dL HDL 53 >=40 mg/dL LDL Cholesterol 63 0 - 100 mg/dL Blood Venous blood specimen / Unknown Result [facility] Provider LAB BLOOD ORDERABLES Danya l Result * Falls Risk Assessment (05/16/2023) [facility] Falls Risk Assessment abstracted [facility] HEALTH MAINTENANCE Final Result * Depression Screening (05/16/2023) [facility] Depression Screening abstracted [facility] HEALTH MAINTENANCE Final Result * Diabetes Foot Exam (05/16/2023) [facility] Diabetes: Annual Foot Exam abstracted [facility] HEALTH MAINTENANCE Final Result * Hepatitis C Screening (05/18/2022) [facility] Hepatitis C Screening abstracted Result [facility] HEALTH MAINTENANCE Final Result * DXA BONE [...] (World Health Organization Fracture Risk Assessment) [facility] Department of Internal Medicine recommends using National [...] of fracture risk by FRAX. Procedure Note Friad Rajput MD - 07/12/2022 BONE DENSITY Lumbar [...] (World Health Organization Fracture Risk Assessment) [facility] Department of Internal Medicine recommendsusing National Osteoporosis [...] fracture risk by FRAX. Lucia Yadav CNM IMG DXA PROCEDURES Final Resu lt from Last 3 Months or Most Recently Relevant to Health Maintenance Insurance [facility] MEDICARE Member Subscriber Plan / Payer (Ef fective 2022-Present) Name:Nelsy Lisa Relation to Subscriber:Self Name:Nelsy Lisa Payer ID:[id number] Group ID:[id number] Type:Not on file Address: [place] [address] [address] Advance Directives Documents on File Type Date Recorded Patient Area Loss Prevention Manager Expl anation Health Care Decision (hx) 07/09/2015 [...] DIRECTIVE Health Care Decision (hx) 07/07/2015 AD MECRER DIRECTIVE Health Care Decision (hx) 07/07/2015 AD [...] currently active code status orders. Care Teams Rn Manager Relationship Specialty Start Date End Date Bran Botello MD [address] [place] [address] PCP - General Internal Medicine 12/01/21
== END 2025-04-10 10:19 | disposition home or self-care (01) ==
LOC: HO.PMC 09:52
PROVIDERS: PCP Internal Medicine; Visit Provider Anesthesiology
DX: M17.0 Bilateral primary osteoarthritis of knee (principal); M54.16 Radiculopathy, lumbar region; M47.816 Spondylosis without myelopathy or radiculopathy, lumbar region; M51.369 Other intervertebral disc degeneration, lumbar region without mention of lumbar back pain or lower extremity pain; G89.4 Chronic pain syndrome; M25.561 Pain in right knee; M25.562 Pain in left knee
CPT/HCPCS: 99214

== ENCOUNTER → 2025-04-10 09:51 | Outpatient (BNVA) | payer OTHER, SELFPAY | PROVIDERS: PCP Internal Medicine; Visit Provider Anesthesiology | DX: M17.0 Bilateral primary osteoarthritis of knee (principal); M54.16 Radiculopathy, lumbar region; M47.816 Spondylosis without myelopathy or radiculopathy, lumbar region; M51.369 Other intervertebral disc degeneration, lumbar region without mention of lumbar back pain or lower extremity pain; M25.561 Pain in right knee; M25.562 Pain in left knee; G89.4 Chronic pain syndrome | CPT/HCPCS: 99212 ==

== ENCOUNTER 2025-04-24 10:26 | Outpatient (AMB) | payer OTHER, SELFPAY ==
[2025-04-24 10:45] VITALS: BP 154/69; PULSE 60; RESP 18; O2SAT 97; BMI 26.4
--- NOTE | 2025-04-24 10:45 | A.OFFVIS_ITS ---
Vital Signs 04/24/25 10:45 Height 4 ft 9 in Weight 122 lb BMI 26.4 BP 154/69 H Blood Pressure Location Lt brachial Position Sitting Respiration 18 Pulse 60 Pulse Source Pulse Oximeter Pulse Oximetry (%) 97 Oxygen Delivery Method Room Air Intake Visit Reasons: DISCUSS LOW BACK Setter Automatic Spinning Lathe Required: No Allergies hydrochlorothiazide Allergy (Unknown, Verified 04/24/25 10:44) Rash tramadol Allergy (Unknown, Verified 04/24/25 10:44) tachycardia HPI Comments Details: Stephanie is back in my office with complains on lower back pain. She received diagnostic genicular nerve blocks and now she is scheduled for radiofrequency ablation at the end of April and beginning of May for of her bilateral genicular nerves. On physical exam sacroiliac joint inflammation is very prominent. See my physical exam as below. I offered her diagnostic sacroiliac joint injection bilateral. I will schedule her for this procedure, I will assess the results of the injection and maybe offer her procedures which will be effective for her sacroiliac joint pain. She is requesting me to prescribe her some medications to help her pain. She does not want any ?addictive medication ?. She wants some anti-inflammatory pills. However at her age it is dangerous to prescribe Winters inhibitors or NSAIDs. The prescription of the muscle relaxants also carries significant risk of fall in the elderly. I recommended her to go to pharmacy and acquire OTC lidocaine patch. Patient agreed and she will see me after the radiofrequency ablation of the genicular nerves. Results of diagnostic bilateral genicular nerve block. The patient reported excellent pain relief on the both knees after the procedure. Her pain decreased started to go slowly however by the 3 hours after the procedure her pain was 0/10. She continues to enjoy no pain in the right knee, she reports pain 1 to 2/10 in the left knee today 48 hours after the procedure. She reports much improved mobility and activities of daily living. She reports today that her lower back pain became worse. I will invite this patient in 2 weeks to discuss her lower back pain. I will schedule her for bilateral left 1st and right 2nd cooled radiofrequency ablation of the knees. Prior advanced osteoarthritis in multiple locations. complains on pain in bilateral shoulders pain in bilateral knees and pain in bilateral lower extremities and pain in the lower back. She reports the lower back pain radiates into the right lower extremity. She reports that radiation ends in the 2nd toe. She reports her pain today 10/10. She is severely disabled. She needs walker for ambulation. Weather changes in movements aggravate her pain. For her pain control she takes Tylenol Arthritis. She never had MRI or CT scan of her lumbar spine. MRI is contraindicated for the patient because she has a pacemaker. She had physical therapy for the knees and shoulders but not for her lower back. She on physical exam has her knees grossly deformed and probably destroyed by the arthritis. In the past she received knee injections and shoulder injections however she denied any help from steroid injections. Review of Systems Const All systems reviewed & are unremarkable except as noted in HPI and below ENT Reports Normal hearing present Neuro Reports Normal hearing present, Denies Abnormal speech present, Denies confusion and Denies Sensory deficit (Neuro) Psych Denies confusion Physical Exam Vital Signs: Last Vital Signs Pulse 60 04/24/25 10:45 Resp 18 04/24/25 10:45 BP 154/69 H 04/24/25 10:45 Pulse Ox 97 04/24/25 10:45 Oxygen Delivery Method Room Air 04/24/25 10:45 BMI result Body Mass Index 26.4 Const General: no acute distress; No confusion Orientation/consciousness: patient oriented x3 and No confusion Limitations: language barrier Eyes General: appearance normal, both eyes and all related structures Pupils: Equal, round and reactive pupils present EOM: EOMs intact bilaterally Neck Neck: Yes full ROM Chest Chest palpation & inspection: normal inspection of the chest Resp Effort & Inspection: normal respiratory effort, able to speak in complete sentences, normal respiratory pattern, no audible wheezes and no cough Cardio Jugular venous distension: no JVD GI Inspection: Yes normal to inspection Back/Spine/Pelvis Other: Severe tenderness on palpation in projection of the most lower portion of the lumbar spine. SLR is equivocal bilaterally, Eleuterio test is positive bilaterally, Gaenslen test is positive bilaterally, pelvic compression and pelvic distraction tests are positive bilaterally. Valsalva maneuver aggravates patient's pain. Neuro General: patient oriented x3, gait normal and No confusion Cranial nerves: Yes CN's II-XII intact bilaterally, Yes Equal, round and reactive pupils present, Yes Normal hearing present and Yes Ability to bilaterally elevate shoulders present Speech: No Abnormal speech present Gait exam (Neuro): Normal gait present Motor exam (neuro): 5/5 motor strength present throughout Sensory Exam: No Sensory deficit (Neuro) Extrem Other: On inspection of the bilateral knees: Gross deformity demonstrating end-stage terminal knee osteoarthritis. General: No pedal edema Psych Speech and movement: Normal speech and movement present Affect: normal affect Attitude: cooperative Thought process: Normal thought process present Thought content: Normal thought content present Insight: Good insight present (Psych) Judgement: Good judgement present (Psych) Assessment & Plan Assessment & Plan (1) Osteoarthritis of knees, bilateral: Code(s): M17.0 - Bilateral primary osteoarthritis of knee Category: Medical (2) Radiculopathy, lumbar region: Code(s): M54.16 - Radiculopathy, lumbar region Category: Medical (3) Spondylosis of lumbar region without myelopathy or radiculopathy: Code(s): M47.816 - Spondylosis without myelopathy or radiculopathy, lumbar region Category: Medical (4) Disc degeneration, lumbar: Code(s): M51.369 - Other intervertebral disc degeneration, lumbar region without mention of lumbar back pain or lower extremity pain Category: Medical (5) Chronic pain syndrome: Code(s): G89.4 - Chronic pain syndrome Category: Medical (6) Bilateral knee pain: Code(s): M25.561 - Pain in right knee; M25.562 - Pain in left knee Category: Medical (7) Sacroiliitis: Code(s): M46.1 - Sacroiliitis, not elsewhere classified Category: Medical (8) Pain of both sacroiliac joints: Code(s): M53.3 - Sacrococcygeal disorders, not elsewhere classified Category: Medical Plan Very good results of bilateral genicular nerve block. She will be scheduled for left side RFA 1st and follow with the right side RFA a week after the 1st procedure. On physical exam today sacroiliac joint inflammation seem to be very prominent. I will schedule her for diagnostic sacroiliac joint injection. If this procedures will not be effective to treat her pain we would need to obtain some images of the lumbar spine. Patient Instructions: I here by testify that I spent 30 minutes in conversation with this patient as well as planning her care and evaluation the prior images and organizing this note. Coding Level of Care Code Est Pt Level 4 (39307) Diagnoses Osteoarthritis of knees, bilateral M17.0 Radiculopathy, lumbar region M54.16 Spondylosis of lumbar region without myelopathy or radiculopathy M47.816 Disc degeneration, lumbar M51.369 Chronic pain syndrome G89.4 Bilateral knee pain M25.561; M25.562 Sacroiliitis M46.1 Pain of both sacroiliac joints M53.3
--- OUTSIDE RECORDS SUMMARY | 2025-04-24 11:56 | XMS_ITS | Clinical Summary ---
Author Organization [address] [facility] Address [address] [place] [address] Phone Care Team Providers Care Social Work Specialist Name Role Phone Bran Botello MD Primary [...] disorder, without long-term current use of insulin ([facility] V24, [facility] V28) 07/14/2024 Coronary artery disease due to lipid rich plaque 07/14/2024 Chest pain 06/22/2024 Type 2 diabetes mellitus wit h hyperosmolarity without coma, without long-term current use of insulin ([facility] V24, [facility] V28) 05/08/2024 Rotator cuff arthropathy of [...] disease, stag e 3, mod decreased GFR ([facility] V24, [facility] V28) 10/23/2019 GERD (gastroesophageal reflux disease) [...] joint of left thumb 08/28/2019 Overview (05/08/2024): 08/07/2019/[facility] Osteoarthritis of both knees 08/28/2019 Overview (05/08/2024): Advanced tricompartmental degenerative changes, no fracture or dislocation. Ct left knee, recently done at [facility], seen by orthopedics Dr. 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 V24, [facility] V28) 06/12/2019 Encounters Date Type Department Care Team Description 03/28/2025 Telephone Adult Medicine [address] [phone] Bran Botello MD 03/05/2025 3:25 PM EDT Ancillary Procedure [facility] [address] [facility] [address] [place] [phone] 03/04/2025 11:00 AM EDT Office Visit [facility] [address] [place] [address] Tiburcio Simpson PA Acute cystitis without hematuria (Primary Dx) 03/03/2025 Telephone Adult Medicine [address] [phone] Bran Botello MD 02/21/2025 Telephone [facility] [address] [place] [address] Shellie Guerrero [place] 02/12/2025 11:00 AM EDT Office Visit [facility] [address] [place] [address] Vishal Hdz, KJ Acute pain of mouth (Primary Dx); Thrush, oral; Post-nasal drip from Last 3 Months Immunizations Immunization Administration Dates Next Due Influenza trivalent, 0.5mL [...] Date Site/Laterality Comments KNEE ARTHROSCOPY Right PROCEDURE: IA ARTHROSCOPY KNEE DIAGNOSTIC W/WO SYNOVIAL BX SPX; COMMENT: 07/2019 PACEMAKER IMPLANT 2018 PROCEDURE: HISTORICAL PACEMAKER CHOLECYSTECTOMY PROCEDURE: HISTORICAL CHOLECYSTECTOMY CERVICAL BIOPSY W/ LOOP ELECTRODE EXCISION 2009 PROCEDURE: IA CONIZATION CERVIX W/WO D&C RPR ELTRD EXC CERVICAL BIOPSY W/ LOOP ELECTRODE EXCISION 02/25/2014 PROCEDURE: IA CONIZATION CERVIX W/WO D&C RPR ELTRD EXC; COMMENT: OSCAR 2, Negative Margins, negative ECC Medical History Medical History Date Comments Chronic kidney disease, stag e 3, mod decreased GFR (CMS/HCC V24, CMS/HCC V28) 10/23/2019 DX:Chronic kidney disease, s tage 3, mod decreased GFR ([facility]) Fall (on) (from) unspecified stairs and steps, [...] of interphalangeal joint of left thumb; COMMENT: 08/07/2019/[facility] Osteoarthritis of both knees 08/28/2019 DX: Osteoarthritis of both knees; COMMENT: Advanced tricompartmental degenerative changes, no fracture or dislocation. Ct left knee, recently done at [facility], seen by orthopedics Dr. joycelyn Avalos Pacemaker 09/17/2019 DX:Pacemaker; CO MMENT: In 11/2018-- ??bradycardia Has upcoming appt in 12/2019 with PVC cardio/ Type 2 diabetes mellitus wit h hyperosmolarity without coma, without long-term current use of insulin (CMS/HCC V24, [facility] V28) 06/12/2019 DX:Type 2 diabetes mellitus [...] Safety Answer Date Record ed Physical Abuse Unrecognized value 07/31/2024 Verbal Abuse Unrecognized value 07/31/2024 Comments No Sex and Gender Information [...] Description 06/10/2025 9:55 AM EST Office Visit [facility] [address] [facility] [address] [place] [address] David Valadez MD [address] [place] [address] 08/21/2025 2:45 PM EST Office Visit Nephrology - [place] [address] [place] [address] Desmond Soto MD [address] [facility] [address] [place] [phone] 09/25/2025 3:30 PM EST Ancillary Procedure [facility] [address] [facility] [address] [place] [phone] Health Maintenance Due Date Last Done Comments Colorectal Cancer Screening: Colonoscopy 1950 COVID-19 Vaccine (#1) 1954 Diabetes: Annual Retina Eye Exam 11/18/1959 Zoster Vaccines (1 of 2) 02/27/2015 01/02/2015 Diabetes: Annual Foot Exam 05/16/2024 05/16/2023 Medicare [...] this topic Medical Devices Implanted Type Area Sprinkler Irrigation Equipment Mechanic Device Identifier Shelf Expiration Date Model / Serial / Lot [id number] 2272 Assurity Mri(Tm) [id number] Implanted: by David Valadez MD (Quantity not on file) Cardiac Pacemaker Left: Chest [employer] [employer] 2272 ASSURITY MRI(TM) / [id number] / Abbt-Stju Assurity Mri [id number] Implanted: (Quantity not on file) Cardiac Pacemaker [employer] MRI 2272 / [id number] / Procedures Procedure Name Priority Date/Time Associated [...] coma, without long-term current use of insulin (CMS/[facility] V24, CMS/[facility] V28) Primary hypertension CKD (chronic kidney disease), [...] 3:22 PM EDT) Date Time Interrogation Session [id number] CV DEVICE CHECK Type Interrogation Session Remote Scheduled CV DEVICE CHECK Implantable Pulse Generator Sprinkler Irrigation Equipment Mechanic [employer] CV DEVICE CHECK Implantable Pulse Generator Type IPG CV DEVICE CHECK Implantable Pulse Generator Model 2272 Assurity MRI(TM) CV DEVICE CHECK Implantable Pulse Generator Serial Number [id number] CV DEVICE CHECK Implantable Pulse Generator Implant Date [id number] CV DEVICE CHECK Battery Remaining Percentage 40.00 CV DEVICE CHECK Battery Remaining Longevity 46.0 CV DEVICE CHECK Battery Voltage 2.960 CV D EVICE CHECK Battery MANAGER STEEL Trigger 2.600 CV DEVICE CHECK Battery Status Middle of Service CV DEVICE CHECK [place]lin Statistic RA Percent Paced 39.00 CV DEVICE CHECK [place]lin Statistic RV Percent Paced 99.00 CV DEVICE CHECK Atrial Tachy Statistic AT/AF [place] Percent 0.00 CV DEVICE CHECK Lead Channel [...] 5.0 LAURA/HM UA POC Trace(A) Negative Specific [place] UA POC 1.015 Ketones UA POC Negative Negative Bilirubin UA POC Negative Negative Urine Urine specimen obtained by clean catch procedure / Unknown 03/04/2025 2:19 PM EDT us Tiburcio PARDO POINT OF CARE TEST ENTER/E DIT ORDERABLES Final Result * Culture urine (03/04/2025 1:28 PM EDT) Culture, Urine <10,000 cfu/ml, insignificant count, no further workup. 03/05/2025 2:41 PM EDT [facility] Urine Urine specimen obtained by clean catch procedure / Unknown Non-blood Collection / Unknown 03/04/2025 1:28 PM EDT 03/04/2025 1:28 PM EDT us Tiburcio PARDO LAB MICROBIOLOGY - GENERAL ORDERABLES Final Result [facility] [address] [place] [address], * (ABNORMAL) Comprehensive metabolic panel (12/26/2024 11:56 AM EDT) Sodium 131(L) 133 - 145 mmol/L LAB CHEMISTRY METHOD 12/26/2024 12:37 PM [facility] Potassium 4.6 3.5 - 5.5 mmol/L LAB CHEMISTRY METHOD 12/26/2024 12:37 PM [facility] Chloride 101 96 - 110 mmol/L LAB CHEMISTRY METHOD 12/26/2024 12:37 PM [facility] CO2 23 21 - 32 mmol/L LAB CHEMISTRY METHOD 12/26/2024 12:37 PM [facility] Anion Gap 7 3 - 11 LAB CHEMISTRY METHOD 12/26/2024 12:37 PM [facility] Glucose 147(H) 70 - 100 mg/dL LAB CHEMISTRY METHOD 12/26/2024 12:37 PM [facility] BUN 16 5 - 25 mg/dL LAB CHEMISTRY METHOD 12/26/2024 12:37 PM [facility] Creatinine 0.68 0.50 - 1.10 mg/dL LAB CHEMISTRY METHOD 12/26/2024 12:37 PM [facility] eGFR 91 >=60 mL/min/1. 73m2 LAB CHEMISTRY METHOD 12/26/2024 12:37 PM [facility] Comment:Calculation based on the Chronic Kidney Disease Epidemiology Collaboration (CKD-EPI) equation refit without adjustment for race. BUN/Creatinine Ratio 23.5 LAB CHEMISTRY METHOD 12/26/2024 12:37 PM [facility] Calcium 9.2 8.5 - 10.5 mg/dL LAB CHEMISTRY METHOD 12/26/2024 12:37 PM [facility] AST (SGOT) 18 10 - 42 unit/L LAB CHEMISTRY METHOD 12/26/2024 12:37 PM EDT [facility] ALT (SGPT) 20 10 - 60 unit/L LAB CHEMISTRY METHOD 12/26/2024 12:37 PM EDT [facility] Alkaline Phosphatase 108 42 - 121 unit/L LAB CHEMISTRY METHOD 12/26/2024 12:37 PM EDT [facility] Total Protein 6.6 6.0 - 8.0 g/dL LAB CHEMISTRY METHOD 12/26/2024 12:37 PM EDT [facility] Albumin 3.5 3.2 - 5.0 g/dL LAB CHEMISTRY METHOD 12/26[facility]24 12:[facility] Total Bilirubin 0.4 0.0 - 1.4 mg/dL LAB CHEMISTRY METHOD 12/26/2024 12:37 PM T [facility] Blood Venous blood specimen / Unknown Venipuncture / Unknown 12/26/2024 11:56 AM EDT 12/26/2024 12:11 PM EDT us Sharad Mcdaniel DO LAB BLOOD ORDERABLES Final Result [facility] [address] [place] [address], * (ABNORMAL) Microalbumin creatinine urine ratio (12/19/2024 12:05 PM EDT) Creatinine, Urine 67.0 mg/dL LAB CHEMISTRY METHOD 12/19/2024 5:44 PM EDT [facility] Microalb, Ur 36.8(H) 0.0 - 29.0 mg/L LAB CHEMISTRY METHOD 12/19/2024 5:44 PM EDT [facility] Microalb/Crea t Ratio 55(H) <30 mg/g creat LAB CHEMISTRY METHOD 12/19/2024 5:44 PM EDT [facility] Urine Urine specimen obtained by clean catch procedure / Unknown Non-blood Collection / Unknown 12/19/2024 12:05 PM EDT 12/19/2024 12:05 PM EDT Trudi PARDO LAB URINE ORDERABLES Fin al Result Performing Organization Address City/[facility]/ZIP Co de Phone Number [facility] [address] [place] [address], * Hemoglobin A1c (12/19/2024 12:05 PM EDT) Hemoglobin A1C 5.4 <6.5 % LAB CHEMISTRY METHOD 12/19/2024 4:37 PM EDT [facility] Mean Bld Glu Estim. 108 mg/dL LAB CHEMISTRY METHOD 12/19/2024 4:37 PM EDT [facility] Blood Venous blood specimen / Unknown Venipuncture / Unknown 12/19/2024 12:05 PM EDT 12/19/2024 12:05 PM EDT Trudi PARDO LAB BLOOD ORDERABLES Fin al Result Performing Organization Address City/[facility]/ZIP Co de Phone Number [facility] [address] [place] [address], * FATOU SCREENING DIGITAL (05/10/2024 7:06 AM EDT) Anatomical Region Laterality Modality Mammography 05/09/2024 10:5 1 AM EDT Narrative 05/10/2024 7:06 AM EDT [facility] Diagnostic Imaging Department [address] [place] [address] Patient: NELSY LISA /Age/Sex: 1950 73 - F Unit#: [id number] Location/Status: SPDIMAM/REG CLI Mnemonic/Ordering Site: [facility] Ordering Physician: BRAN BOTELLO MD Fatou Screening Digital - 05/09/24 - 1111 Report Status:Signed EXAM: SCREENING MAMMOGRAPHY, BILATERAL HISTORY: SCREENING. No additional history. COMPARISON: 11/09/2022, 11/27/2020 TECHNIQUE: Synthesized CC and MLO projections of each breast. Tomosynthesis of each breast in the CC and MLO projections. ADDITIONAL IMAGING: None Computer-aided detection was employed with the IceRocket AI 3-D. TISSUE DENSITY: There are scattered [...] Procedure Note Josiah Sampson MD - 05/21/2024 [facility] Diagnostic Imaging Department [address] [place] [address] Patient: NELSY LISA /Age/Sex: 1950 - 73 - F Unit#: [id number] Location/Status: [facility]/REG CLI Mnemonic/Ordering Site: [facility] Ordering Physician: BRAN BOTELLO MD Fatou Screening Digital - 05/09/24 - 1111 Report Status:Signed EXAM: SCREENING MAMMOGRAPHY, BILATERAL HISTORY: SCREENING. No additional history. COMPARISON: 11/09/2022, 11/27/2020 TECHNIQUE: Synthesized CC and MLO projections of each breast.Tomosynthesis of each breast in the CC and MLO projections. ADDITIONAL IMAGING: None Computer-aided detection was employed with the IceRocket AI 3-D. TISSUE DENSITY: There are scattered [...] Final Res ult * Lipid panel (11/29/2023) [facility] LDL/HDL Ratio 3 0 - 4 Triglycerides 138 0 - 150 mg/dL Cholesterol 143 0 - 200 mg/dL HDL 53 >=40 mg/dL LDL Cholesterol 63 0 - 100 mg/dL Blood Venous blood specimen / Unknown Result [facility] Provider LAB BLOOD ORDERABLES Danya l Result * Falls Risk Assessment (05/16/2023) [facility] Falls Risk Assessment abstracted Counts include 234 beds at the [facility] HEALTH MAINTENANCE Final Result * Depression Screening (05/16/2023) [facility] Depression Screening abstracted Counts include 234 beds at the [facility] HEALTH MAINTENANCE Final Result * Diabetes Foot Exam (05/16/2023) [facility] Diabetes: Annual Foot Exam abstracted Counts include 234 beds at the [facility] HEALTH MAINTENANCE Final Result * Hepatitis C Screening (05/18/2022) [facility] Hepatitis C Screening abstracted Result [facility] HEALTH MAINTENANCE Final Result * DXA BONE [...] (World Health Organization Fracture Risk Assessment) [facility] Department of Internal Medicine recommends using [...] fracture risk by FRAX. 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 Care Teams Social Work Specialist Relationship Specialty Start Date End Date Bran Botello MD [address] [place] [address] PCP - General Internal Medicine 12/01/21
--- OUTSIDE RECORDS SUMMARY | 2025-04-24 11:57 | XMS_ITS | Clinical Summary ---
Author Organization [facility] Address [address] [place] [address] Care Team Providers Care Party Plan Sales Unit Sales Leader Name Role Phone Bran Vásquez MD Primary Care Provider [phone] Allergies Active Allergy Reactions Criticality Noted Date [...] 20 mg by mouth daily. 0 Active [place]-3 1000 MG CAPS Take 1 capsule by [...] dislocation. Ct left knee, recently done at [facility], seen by orthopedics Dr. joycelyn Avalos [...] age to complete this topic Care Teams Party Plan Sales Unit Sales Leader Relationship Specialty Start Date End Date Barn Vásquez MD [address] [place] [address] PCP - General Hospitalist Medicine 09/30/23
== END 2025-04-24 11:19 | disposition home or self-care (01) ==
LOC: HO.PMC 10:27
PROVIDERS: PCP Internal Medicine; Visit Provider Anesthesiology
DX: M17.0 Bilateral primary osteoarthritis of knee (principal); M54.16 Radiculopathy, lumbar region; M47.816 Spondylosis without myelopathy or radiculopathy, lumbar region; M51.369 Other intervertebral disc degeneration, lumbar region without mention of lumbar back pain or lower extremity pain; G89.4 Chronic pain syndrome; M25.561 Pain in right knee; M25.562 Pain in left knee; M46.1 Sacroiliitis, not elsewhere classified; M53.3 Sacrococcygeal disorders, not elsewhere classified
CPT/HCPCS: 99214

== ENCOUNTER → 2025-04-24 10:26 | Outpatient (BNVA) | payer OTHER, SELFPAY | PROVIDERS: PCP Internal Medicine; Visit Provider Anesthesiology | DX: M46.1 Sacroiliitis, not elsewhere classified (principal); M54.16 Radiculopathy, lumbar region; M47.816 Spondylosis without myelopathy or radiculopathy, lumbar region; M51.369 Other intervertebral disc degeneration, lumbar region without mention of lumbar back pain or lower extremity pain; M17.0 Bilateral primary osteoarthritis of knee; M25.561 Pain in right knee; M25.562 Pain in left knee; M53.3 Sacrococcygeal disorders, not elsewhere classified; G89.4 Chronic pain syndrome | CPT/HCPCS: 99212 ==

== ENCOUNTER 2025-05-20 06:18 | Outpatient (REF) | payer OTHER, SELFPAY ==
--- NOTE | ~2025-05-20 | FL_ITS ---
EXAMINATION: XR FLUOROSCOPY WITH IMAGES CLINICAL INFORMATION: Knee pain COMPARISON: Prior procedure 04/08/2025 TECHNIQUE: Fluoroscopy time: 27 seconds DAP: 70 mGycm2 Images: 4 FINDINGS: Fluoroscopic spot images of the right knee in the lateral projection demonstrates needles in place in the distal femur and proximal tibia. FL/FL guidance in treatment room IMPRESSION: Fluoroscopy during procedure. Please see procedure report for additional information. Electronically signed by: Mc Hobson MD 05/20/2025 11:51 AM EDT
--- OUTSIDE RECORDS SUMMARY | 2025-05-20 06:21 | XMS_ITS | Encounter Summary ---
Author Organization [facility] Address [address] [place] [address] Care Team Providers Care Neurology Specialist Name Role Phone Luis Gagnon MD Primary Care Provide r Unavailable David Valadez MD Unavailable [phone] Madelin Lam NP Unavailable [phone] Santos Lubin MD Primary Care Provider [phone] Santos Lubin MD Primary Care Provider [facility] Santos Lubin MD Primary Care Provider [phone] Bran Vásquez Primary Care Provider [phone] Yajaira Bhatia MD Primary Care Provider Bran Vásquez Primary Care Provider [phone] Reason for Visit * Reason Onset Date Comments TEST RESULTS 04/23/2020 Encounter Details Date Type Department Care Team Description 04/23/2020 Telephone Adult Medicine [address] [address] Luis Gagnon MD TEST RESULTS Social History Tobacco Use Types Packs/Day Years Used Date Smoking Tobacco: Former Smokeless Tobacco: Never Alcohol Use Standard Drinks/Week Comments No 0 (1 standard drink = 0.6 oz pur e alcohol) Alcohol Habits Answer Date Recorded How often do you have a drink containing alcohol ? Never 06/12/2019 How many drinks containing a lcohol do you have on a typical day when you are drinking? Not asked How often do you have six or more drinks on one occasion? Not asked Sex Assigned at Date Recorded Not on file Job Start Date Occupation Industry Not on file Not on file Not on file COVID-19 Exposure Response Date Recorded In the last month, have you been in contact with someone who was confirmed or suspected to have Coronavirus / COVID-19? No / Unsure 04/23/2020 8:32 AM EDT documented as of this encounter Miscellaneous Notes * Telephone Encounter - Debra Garcia M.A. - 04/23/2020 4:37 PM EDT Spoke to Vane and she was given message below. * Telephone Encounter - Vishal Demarco PA-C - 04/23/2020 4:23 PM EDT This was sent for nursing staff to let her know that the imaging showed no issues other than minor arthritis. Please see previous documentation * Telephone Encounter - Hanna Isidro - 04/23/2020 2:03 PM EDT Pt's Daughter, Vane, called asking for a call back w/xray results. She received a call to call back (documented on test results). Please call Daughter at [phone] documented in this encounter Plan of Treatment Not on file documented as of this encounter Visit Diagnoses Not on filedocumented in this encounter Care Teams Neurology Specialist Relationship Specialty Start Date End Date Luis Gagnon MD PCP - General Internal Medicine 04/29/19 Santos Lubin MD [address] [place] [address] PCP - General Internal Medicine 09/23/20 03/30/21 Santos Lubin MD [address] [place] [address] [id number] PCP - General Internal Medicine 03/31/21 05/03/21 [facility] Pcp [address] [place] [address] PCP - General Internal Medicine 05/04/21 06/14/21 Santos Lubin MD [address] [place] [address] PCP - General Internal Medicine 06/15/21 11/30/21 Bran Vásquez [address] [place] [address] PCP - General Internal Medicine 12/01/21 08/13/23 Yajaira Bhatia MD [address] [place] [address] PCP - General Internal Medicine 08/14/23 09/18/23 Bran Vásquez [address] [place] [address] PCP - General Internal Medicine 09/19/23 David Valadez MD Specialist Cardiology 08/17/20 Madelin Lam, KJ [address] [address] Cardiology 08/17/20 documented as of this encounter
--- OUTSIDE RECORDS SUMMARY | 2025-05-20 06:21 | XMS_ITS | Encounter Summary ---
Author Organization [facility] Address [address] [place] [address] Care Team Providers Care Nurse'S Aides Teacher Name Role Phone Luis Gagnon MD Primary Care Provide r Unavailable David Valadez MD Unavailable [phone] Madelin Lam NP Unavailable [phone] Santos Lubin MD Primary Care Provider [phone] Santos Lubin MD Primary Care Provider [facility] Primary Care Provider [facility] Santos Lubin MD Primary Care Provider [phone] Bran Vásquez Primary Care Provider [phone] Yajaira Bhatia MD Primary Care Provider [phone] Bran Vásquez Primary Care Provider Reason for Visit * Reason Onset Date Comments medication problems 08/18/2020 Encounter Details Date Type Department Care Team Description 08/18/2020 Telephone Adult [address] [address] Luis Gagnon MD medication problems Social History Tobacco Use Types Packs/Day Years [...] have Coronavirus / COVID-19? No / Unsure 08/12/2020 8:42 AM EST documented as of this encounter Miscellaneous Notes * Telephone Encounter - Urmila BishopPAshleyN. - 08/18/2020 4:32 PM EST Change in pharmacy please resign * Telephone Encounter - Elaine Weston - 08/18/2020 3:22 PM EST Pts daughter calling. She needs the RX for glucose monitor sent to [facility].Please advise. documented in this encounter Plan of Treatment Not on file documented as of this encounter Visit Diagnoses Not on filedocumented in this encounter Care Teams Nurse'S Aides Teacher Relationship Specialty Start Date End Date Luis Gagnon MD PCP - General Internal Medicine 04/29/19 Santos Lubin MD [address] [place] [address] PCP - General Internal Medicine 09/23/20 03/30/21 Santos Lubin MD [address] [place] [address] PCP - General Internal Medicine 03/31/21 05/03/21 [facility] Pcp [address] [place] [address] PCP - General Internal Medicine 05/04/21 06/14/21 Santos Lubin MD [address] [place] [address] PCP - General Internal Medicine 06/15/21 11/30/21 Bran V[address] [place] [address] PCP - General Internal Medicine 12/01/21 08/13/23 Yajaira Bhatia MD [address] [place] [address] PCP - General Internal Medicine 08/14/23 09/18/23 Bran Vás[address] [place] [address] PCP - General Internal Medicine 09/19/23 David Valadez MD Specialist Cardiology 08/17/20 Madelin Lam, KJ [address] [place] [address] Cardiology 08/17/20 documented as of this encounter
--- OUTSIDE RECORDS SUMMARY | 2025-05-20 06:21 | XMS_ITS | Encounter Summary ---
Author Organization [facility] Address [address] [place] [address] Care Team Providers Care Treasury Assistant Name Role Phone David Valadez MD Unavailable [phone] Madelin Lam NP Unavailable [phone] Santos Lubin MD Primary Care Provider [phone] Santos Lubin MD Primary Care Provider [phone] [facility], Pcp Primary Care Provider [facility] Santos Lubin MD Primary Care Provider [phone] Bran Vásquez Primary Care Provider Yajaira Bhatia MD Primary Care Provider [phone] Bran Vásquez Primary Care Provider [phone] Encounter Details Date Type Department Care Team Description 12/07/2020 Sock And Stocking Ironer Report Medical Records [address] [place] [address] Lorenzo Albert MD Social History Tobacco Use Types Packs/Day Years [...] have Coronavirus / COVID-19? No / Unsure 12/04/2020 2:35 PM EDT documented as of this encounter Plan of Treatment Not on file documented as of this encounter Visit Diagnoses Not on filedocumented in this encounter Care Teams Treasury Assistant Relationship Specialty Start Date End Date Santos Lubin MD [address] [place] [address] PCP - General Internal Medicine 09/23/20 03/30/21 Santos Luibn MD [address] [place] [address] PCP - General Internal Medicine 03/31/21 05/03/[address] [address] PCP - General Internal Medicine 05/04/21 06/14/21 Santos Lubin MD [address] [place] [address] PCP - General Internal Medicine 06/15/21 11/30/21 Bran Vásquez [address] [place] [address] PCP - General Internal Medicine 12/01/21 08/13/23 Yajaira Bhatia MD [address] [place] [address] PCP - General Internal Medicine 08/14/23 09/18/23 Bran Vásquez [address] [place] [address] PCP - General Internal Medicine 09/19/23 David Valadez MD Specialist Cardiology 08/17/20 Madelin Lam, KJ [address] [phone] Cardiology 08/17/20 documented as of this encounter
--- OUTSIDE RECORDS SUMMARY | 2025-05-20 06:21 | XMS_ITS | Encounter Summary ---
Author Organization [facility] Address [address] [place] [address] Care Team Providers Care Skimmer Reverberatory Name Role Phone David Valadez MD Unavailable [phone] Madelin Lam NP Unavailable [phone] [facility], Pcp Primary Care Provider [facility] Santos Jones MD Primary Care Provider [phone] Bran Vásquez Primary Care Provider Yajaira Bhatia MD Primary Care Provider Bran Vásquez Primary Care Provider Reason for Referral * Radiology Services (Routine) - Closed Specialty Diagnoses / Procedures Referred By Manan bryan Referred To Contact Radiology Diagnoses Chronic mesenteric ischemia (HCC) Procedures CT ANGIO ABD & PELVIS WITH OR W/WO CONTRAST Sameera Kang PA-C [address] [place] [address] [address] [address] Referral ID Status Reason Start Date Expiration Date Visits Re quested Visits Authorized EXTERNAL Closed 03/28/2022 1 1 Encounter Details Date Type Department Care Team Description 05/19/2021 Orders Only Vascular Surgery - [address] [place] [phone] Sameera Kang PA-C [address] [address] Chronic mesenteric ischemia (HCC) (Primary Dx) Social History Tobacco Use Types Packs/Day Years [...] have Coronavirus / COVID-19? No / Unsure 04/28/2021 2:42 PM EDT documented as of this encounter Plan of Treatment Not on file documented as of this encounter Visit Diagnoses Diagnosis Chronic mesenteric ischemia (HCC)- Primary Chronic vascular insufficiency of intestine documented in this encounter Care Teams Skimmer Reverberatory Relationship Specialty Start Date End Date Community, Pcp [address] [place] [address] PCP - General Internal Medicine 05/04/21 Santos Lubin MD [address] [place] [address] PCP - General Internal Medicine 06/15/21 11/30/21 Bran Vásquez [address] [place] [address] PCP - General Internal Medicine 12/01/21 08/13/23 Yajaira Bhatia MD [address] [place] [address] PCP - General Internal Medicine 08/14/23 09/18/23 Bran Vásquez [address] [place] [address] PCP - General Internal Medicine 09/19/23 David Valadez MD Specialist Cardiology 08/17/20 Madelin Lam NP [address] [place] [address] Cardiology 08/17/20 documented as of this encounter
--- OUTSIDE RECORDS SUMMARY | 2025-05-20 06:21 | XMS_ITS | Encounter Summary ---
Author Organization [facility] Address [address] [place] [address] Care Team Providers Care Sterile Technician Name Role Phone Luis Gagnon MD Primary Care Provide r Unavailable David Valadez MD Unavailable [phone] Madelin Lam NP Unavailable [phone] Santos Lubin MD Primary Care Provider [phone] Santos Lubin MD Primary Care Provider [facility] Primary Care Provider Unavail[facility] e Santos Lubin MD Primary Care Provider [phone] Bran Vásquez Primary Care Provider Yajaira Bhatia MD Primary Care Provider Bran Vásquez Primary Care Provider Encounter Details Date Type Department Care Team Description 06/25/2020 Director Prison Report Medical Records [address] [place] [address] Lorenzo Albert MD Social History Tobacco Use [...] file Not on file Not on file documented as of this encounter Plan of Treatment Not on file documented as of this encounter Visit Diagnoses Not on filedocumented in this encounter Care Teams Sterile Technician Relationship Specialty Start Date End Date Luis Gagnon MD PCP - General Internal Medicine 04/29/19 Santos Lubin MD [address] [place] [address] PCP - General Internal Medicine 09/23/20 03/30/21 Santos Lubin MD [address] [place] [address] PCP - General Internal Medicine 03/31/21 05/03/[address] [address] PCP - General Internal Medicine 05/04/21 06/14/21 Santos Lubin MD [address] [place] [address] PCP - General Internal Medicine 06/15/21 11/30/21 Bran Vásquez [address] [place] [address] PCP - General Internal Medicine 12/01/21 08/13/23 Yajaira Bhatia MD [address] [place] [address] PCP - General Internal Medicine 08/14/23 09/18/23 Bran Vásquez [address] [place] [address] PCP - General Internal Medicine 09/19/23 David Valadez MD Specialist Cardiology 08/17/20 Madelin Lam, KJ [address] [phone] Cardiology 08/17/20 documented as of this encounter
--- OUTSIDE RECORDS SUMMARY | 2025-05-20 06:21 | XMS_ITS | Data Portability ---
Author Organization [employer] [facility], [facility] Address [address] [place] [address] Care Team Providers Care Lacrosse Coach Name Role Phone HIM CCA OTHER Assessment [...] any twisting will aggravate the pain. VSS. Record Center Coordinator on site reports no reproducible abdominal pain, [...] in the field was performed by my fish hatchery inspector colleague, as noted above, I provided [...] Assessment and Plan as documented by the Record Center Coordinator. Patient given the opportunity to ask questions. [...] shortness of breath and denies GROSS. Per fish hatchery inspector on the scene, vital signs are [...] cmp, whole blood + renay [email or web address], [address] 4 16:57:24 hemoglobin + hematocrit, blood 2023 [email or web address], [address] 4 16:57:23 culture, urine 2022 023 BOWDEN [facility] (Centralized Electronic Ordering - All Locations), Patient Can Go To The Location Of Their Choice, [address] 14:44:21 Referral None recorded. Procedures None recorded. Surgeries None recorded. Imaging electrocard iogram 2023 024 [email or web address] [facility], [address] [place] [address], [address] 14:52:21 Medication Orders Voltaren 1 % topical gel 2022 023 [facility] [place], [place] - [id number], [address] [place] [address], [address], 16:53:28 Patient TargetsNo targets recorded. Patient InstructionsNo instructions recorded. Reason for Referral None Reported. Results Created Date Observation Date Name Description Value Unit Range Abnormal Flag Note LastModifiedBy Organization Detail LastModifiedTime 05/29/2005/29/2023 URINE CULTU RE specimen description URINE Not Available [facility] (Centralized Electronic Ordering - All Locations) Patient Can Go To The Location Of Their Choice, [id number] 05/30/2023 14:44:21 05/29/2005/29/2023 URINE CULTU RE special requests NONE Not Available [facility] (Centralized Electronic Ordering - All Locations) Patient Can Go To The Location Of Their Choice, [address] 05/30/2023 14:44:21 05/29/20 23 05/30/2023 URINE CULTU RE culture <10,00 0 COL/ML abnormal Not Available [facility] (Centralized Electronic Ordering - All Locations) Patient Can Go To The Location Of Their Choice, [address] 05/30/2023 14:44:21 05/29/20 23 05/30/2023 URINE CULTU RE report status FINAL 2022 Not Available [facility] (Centralized Electronic Ordering - All Locations) Patient Can Go To The Location Of Their Choice, [address] 05/30/2023 14:44:21 11/25/19 24 11/25/2023 hemog lobin + hemat ocrit , blood Hemoglobin 15.2 Not Available [facility] - [address], [address] [place] [address] 11/25/2023 16:53:14 11/25/19 24 11/25/2023 cmp, whole blood + picco lo CRE 0.5 Not Available [facility] [address], [address] [place] [address] 11/25/2023 16:52:56 11/25/19 24 11/25/2023 cmp, whole blood + picco lo GLU 130 Not Available [facility] [address], [address] [place] [address] 11/25/2023 16:52:56 11/25/19 24 11/25/2023 cmp, whole blood + picco lo K+ 4.4 Not Available [facility] [address], [phone] 11/25/2023 16:52:56 11/25/19 24 11/25/2023 cmp, whole blood + picco lo Na+ 129 Not Available [facility] [address], [phone] 11/25/2023 16:52:56 04/22/20 24 04/22/2024 elect lauroar diogr am No observ ation record ed. [email or web address] [address], [address] 04/22/2024 21:20:48 Result Notes None recorded. Medical [...] % 99 % 170/81 mm[Hg] Not Available [facility] 4 16:16:21 Date Recorded Heart rate Respiratory rate Oxygen saturation Oxygen saturation in Arterial blood by Pulse oximetry Body temperature Systolic And Diastolic Provider Name and Address Organization Details Last Updated DateTime 4 66 /min 16 /min 98 % 98 % 99 [degF] 160/90 mm[Hg] Not Available [employer] 4 19:21:40 Date Recorded Heart rate Oxygen saturation Oxygen saturation in Arterial blood by Pulse oximetry Body temperature Respiratory rate Systolic And Diastolic Provider Name and Address Organization Details Last Updated DateTime 4 65 /min 99 % 99 % 97.1 [degF] 16 /min 150/66 mm[Hg] Not Available [employer] 4 16:47:42 Date Recorded Respiratory rate Heart rate Body temperature Body weight Body height Oxygen saturation Oxygen saturation in Arterial blood by Pulse oximetry Systolic And Diastolic Provider Name and Address Organization Details Last Updated DateTime 3 16 /min 66 /min 99.1 [degF] 30514.8 8 g 144.78 cm 98 % 98 % 159/69 mm[Hg] Not Available [facility] - production 3 11:26:47 Social History None recorded. Functional Status None recorded. Mental Status None recorded. Family History Nothing Reported. Medical History No medical history recorded. Gynecological HistoryNo gynecological history recorded. Obstetrics History GPAL:G 0 P 0 0 0 0 Past Encounters Encounter ID Performer Location Encounter Start Date Encounter Closed Date Diagnosis/Indication Diagnosis SNOMED-CT Code Diagnosis ICD10 Code Diagnosis IMO Codes Diagnosis Note [id number] Ele Peña MD [address] [address] 05/29/2023 11:25:06 05/30/2023 11:17:09 Right flank pain 838283963 R10.9 Urinary symptoms 5118803 08 R39.9 [id number] Toña Zamora MD [address] [address] 11/25/2023 16:16:01 11/26/2023 12:35:10 Dizziness 379715999 R42 73 year old female with a [...] assessment and plan as documented by the fish hatchery inspector. I provided real-time medical direction for this encounter and was immediatel y available to provide additional phone-base d assistance as needed. We discussed the diagnostic uncertaint y of home visits and associated risks. We discussed the need to seek care urgently/e mergently in the setting of any new or worsening symptoms. [id number] Jaci Seymour MD [address] [address] 11/26/2023 17:33:41 11/28/2023 11:41:23 Hyponatremia 87015487 E87.1 [id number] Angelic Duncan MD [facility] [address] [place] [address] 04/22/2024 16:47:28 04/23/2024 12:53:07 Chest pain 35851423 R07.9 Health Concerns Section Related Observation LastModified by Organization Dettimmy ls LastModified Time None Recorded Concern Status LastModified by Organization Details LastModified Time None Recorded Advance Directives Directive None Recorded Payers Insurance Date Sequence Insurance Name Policy Number Policy Galloway Covered Member ID Galloway Member ID Guarantor Name 04/24/2024 1 [facility] - DOS ON OR AFTER 2022 - DUAL ELIGIBLE - DETENTION OPTIONS AND ONE CARE (MEDICARE REPLACEMENT/ADV ANTAGE - HMO) Vane Lisa [id number] Vane Lisa Notes Date Note Type Note [...] member remains symptomatic. Member in agreement with [facility] Referral. ..................... ..................... ..................... ..................... ..................... ..................... ............... CRC Nursing Assessment: Comments: CRC RN did not require any additional information to process this visit. ..................... ..................... ..................... ..................... ..................... ..................... ............... Record Center Coordinator Note From Babatunde Mancuso: Pt reports approx one week of right sided ABD and flank pain. Pt denies any precipitating event or associated injury. Pt denies dysuria, hematuria, CP, SOB, f/n/v/d. Pt was seen at [facility] ED on Monday, had full work up and was told everything was negative. Pt is alert, NAD. VSS. Afebrile. Neuro exam and gait normal. Lungs CTA. ABD is soft, non distended. No CVA tenderness. No KRISTYN. UA: 3+ BETY, - NIT, - BLO, - PRO. UC sent to [facility]. Pt instructed to continue with tylenol, call PCP s office today for f/u, and to seek emergent medical care for new or worsening sx, which are reviewed with her. [facility] Lab Orders: culture, urine: Performed ..................... ..................... ..................... ..................... ..................... ..................... ............... Disposition: Som Peña MD [address] [facility],[address], [place], [address], [employer] 05/29/2023 12:02:51 11/25/2023 text/html CRC Nurse Triage Notes (Trent Servin): Patient Reports: Shortness of Breath; Palpitations, feeling dizzy; Weakness/tachycardiaD enies: Active Chest pain, radiates to neck jaw and or arm Diaphoretic/Sweating Describes as c rushing Sudden onset of nausea/Vomiting and shortness of breath. Unable to speak in full sentences without distress Chest pain, increased fatigue Chief Complaints: Syncope/Dizziness/Lig htheadednessPMH: Hypertension, DiabetesAllergies: UnknownComments: Billing Clerk verified the member's name//address and phone number. [...] treatment x3 - [facility] response times explained Record Center Coordinator POC Test Results from Babatunde Mancuso MANDO [...] result can be found under Documents section. Record Center Coordinator POC Test Results from Babatunde Mancuso MANDO Urine Dipstick (1) [16:28] Urine leukocytes: - BETY Urine nitrites: - NIT Urine urobilinogen: - URO Urine protein: - PRO Urine pH: 6.0 pH Urine blood: - BLO Urine specific gravity: 1.00 SG Urine ketones: - KET Urine bilirubin: - CALISTA Urine glucose: - GLU ..................... ..................... ..................... ..................... ..................... ..................... ............... Record Center Coordinator Note From Babatunde Mancuso: Pt reports three [...] ............... Disposition: Fulfilled Toña Zamora MD [address] [facility],[address], [place], [address], [employer] 11/25/2023 16:57:51 11/26/2023 text/html CRC Nurse Triage Notes (Trent Servin): Chief Complaints: Electrolyte Imbalance PMH: Hypertension, Diabetes Allergies: Unknown [facility] - [...] POC labs uploaded; Na 129, Ca 1.08. [facility] RemarksPatient seen 11/24 for malaise/palpitations, unclear etiology, sodium 129, recommend FU 24-48h to repeat sodium level. - Follow up scheduled 11/25[facility] HPI:feeling gernally unwell, palpitatoins and dizziness. seen by insted yesterday, found to have sodium of 129. today, 127. on history, she reports being told by her pcp to restrict liquids b/c of low sodium but she doesn't how low. Record Center Coordinator POC Test Results from Perri Oliver - MANDO iSTAT Chem8+ (1) [19:22] Na: 127 mEq/L K: 4.2 mEq/L Cl: 97 mEq/L iCa: 1.11 mmol/L TCO2: 22 mmol/L Glu: 164 mg/dL BUN: 16 mg/dL Crea: 0.7 mg/dL Hct: 37 % Hb: 12.6 g/dL A ..................... ..................... ..................... ..................... ..................... ..................... ............... Record Center Coordinator Note From Perri Oliver: Community Record Center Coordinator Irvin Oliver SC6 dispatched to a [facility] for a 73 yof C/O hyponatremia. [...] on a fluid restriction by her PCP. [facility] consulted; pt was reassured that since she was asymptomatic, she was safe to stay home and should follow up w/ her PCP, especially to see if this sodium level was WNL for her. Pt verbalized understanding and agreed. Red flags discussed at length. ..................... ..................... ..................... ..................... ..................... ..................... ............... Disposition: Som Seymour MD [address] [place] [address],[address], [place], [address], [employer] 11/26/2023 19:46:26 04/22/2024 text/html HPI: Maya is a 73 yo Estonian/Swedish speaking female with extensive medical hx including [...] with Mbr as applicable. Call originated from [phone]. Address and phone number confirmed with Mbr. ..................... ..................... ..................... ..................... ..................... ..................... ............... CRC Nurse Triage Notes (Trent Servin): Chief Complaints: Pain, Diarrhea, Weakness/Lethargy PMH: Heart Disease, Hypertension, Diabetes Comments: Reviewed HPI Record Center Coordinator Organization Information for Babatunde Mancuso Business Legal Name: [facility] Address: [address] [place] [address], Tire Room Supervisor: Ryan Pedraza MD [facility] No.: [id number] Record Center Coordinator POC Test Results from Babatunde Mancuso [employer] EKG (16:42:22) EKG test performed. Attachments uploaded as part of this test result can be found under Documents section. ..................... ..................... ..................... ..................... ..................... ..................... ............... Record Center Coordinator Note From Babatunde Mancuso: Pt reports three [...] to drive her. Pt to go to [facility] via family. ..................... ..................... ..................... ..................... ..................... ..................... ............... Disposition: Fulfilled Angelic Duncan MD [address] [facility],[address], [place], [address], [facility] [employer] 04/22/2024 20:55:44 OBGyn Episode No OBEpisode recorded.
--- OUTSIDE RECORDS SUMMARY | 2025-05-20 06:21 | XMS_ITS | Encounter Summary ---
Author Organization [facility] Address [address] [place] [address] Care Team Providers Care Check Pilot Name Role Phone David Valadez MD Unavailable [phone] Madelin Lam NP Unavailable [phone] Bran Vásquez Primary Care Provider [phone] Yajaira Bhatia MD Primary Care Provider [phone] Bran Vásquez Primary Care Provider [phone] Encounter Details Date Type Department Care Team Description 04/07/2022 SCAN Medical Records [address] [place] [address] [facility] Social History Tobacco Use Types Packs/Day Years [...] on filedocumented in this encounter Care Teams Check Pilot Relationship Specialty Start Date End Date Bran Vásquez [address] [place] [address] PCP - General Internal Medicine 12/01/21 08/13/23 Yajaira Bhatia MD [address] [place] [address] PCP - General Internal Medicine 08/14/23 09/18/23 Bran Vásquez [address] [place] [address] PCP - General Internal Medicine 09/19/23 David Valadez MD Specialist Cardiology 08/17/20 Madelin Lam, KJ [address] [address] Cardiology 08/17/20 documented as of this encounter
--- OUTSIDE RECORDS SUMMARY | 2025-05-20 06:21 | XMS_ITS | Encounter Summary ---
Author Organization [facility] Address [address] [place] [address] Care Team Providers Care Electronic Assembler Name Role Phone David Valadez MD Unavailable [phone] Madelin Lam NP Unavailable [phone] Santos Lubin MD Primary Care Provider [phone] Santos Lubin MD Primary Care Provider [phone] [facility], Pcp Primary Care Provider [facility] Santos Lubin MD Primary Care Provider [phone] Bran Vásquez Primary Care Provider Yajaira Bhatia MD Primary Care Provider [phone] Bran Vásquez Primary Care Provider [phone] Encounter Details Date Type Department Care Team Description 09/30/2020 Telephone Adult Medicine - [address] [address] Elissa Patel PA-C [address] [place] [address] Social History Tobacco Use Types Packs/Day Years [...] have Coronavirus / COVID-19? No / Unsure 09/29/2020 1:20 PM EST documented as of this encounter Miscellaneous Notes * Telephone Encounter - Aleena Fair - 09/30/2020 9:03 AM EST Left message for pt to call office back. Ext [phone] or route to B side. * Telephone Encounter - Aleena Fair - 09/30/2020 9:03 AM EST ----- Message from Elissa Patel PA-C sent at 09/30/2020 8:55 AM EST ----- Please inform patient that her sodium level was decreased which it appears to have been in the past. Please have her schedule follow-up with Dr Soto for consult as she had seen him over the summer it appears for this. documented in this encounter Plan of Treatment Not on file documented as of this encounter Visit Diagnoses Not on filedocumented in this encounter Care Teams Electronic Assembler Relationship Specialty Start Date End Date Santos Lubin MD [address] [place] [address] PCP - General Internal Medicine 09/23/20 03/30/21 Santos Lubin MD [address] [place] [address] PCP - General Internal Medicine 03/31/21 05/03/21 [facility], Pcp [address] [place] [address] PCP - General Internal Medicine 05/04/21 06/14/21 Santos Lubin MD [address] [place] [address] PCP - General Internal Medicine 06/15/21 11/30/21 Bran V[address] [place] [address] PCP - General Internal Medicine 12/01/21 08/13/23 Yajaira Bhatia MD [address] [place] [address] PCP - General Internal Medicine 08/14/23 09/18/23 Bran Vás[address] [place] [address] PCP - General Internal Medicine 09/19/23 David Valadez MD Specialist Cardiology 08/17/20 Madelin Lam, KJ [address] [address] Cardiology 08/17/20 documented as of this encounter
--- OUTSIDE RECORDS SUMMARY | 2025-05-20 06:21 | XMS_ITS | Encounter Summary ---
Author Organization [facility] Address [address] [place] [address] Care Team Providers Care Applications Scientist Name Role Phone David Valadez MD Unavailable [phone] Madelin Lam NP Unavailable [phone] Bran Vásquez Primary Care Provider [phone] Encounter Details Date Type Department Care Team Description 12/28/2023 Telephone Adult Medicine [address] [id number] Jaime Meadows PA-C [address] [place] [address] Social History Tobacco Use Types Packs/Day Years [...] on file documented as of this encounter Miscellaneous Notes * Telephone Encounter - Kareen Og MA - 12/28/2023 1:28 PM EDT Patient was informed. * Telephone Encounter - Jaime Meadows PA-C - 12/28/2023 8:57 AM EDT Please inform patient her recent carotid ultrasound was reassuring. There is no evidence of any blockages in the arteries of her neck. She should keep her upcoming follow-up visit with my colleague in the coming weeks. If she has any questions just let me know. documented in this encounter Plan of Treatment Not on file documented as of this encounter Visit Diagnoses Not on filedocumented in this encounter Care Teams Applications Scientist Relationship Specialty Start Date End Date Bran Vásquez [address] [place] [address] PCP - General Internal Medicine 09/19/23 David Valadez MD Specialist Cardiology 08/17/20 Madelin Lam NP [address] [place] [phone] Cardiology 08/17/20 documented as of this encounter
--- OUTSIDE RECORDS SUMMARY | 2025-05-20 06:21 | XMS_ITS | Encounter Summary ---
Author Organization [facility] Address [address] [place] [address] Care Team Providers Care Rib Cloth Knitter Name Role Phone David Valadez MD Unavailable Madelin Lam NP Unavailable [phone] Bran Vásquez Primary Care Provider Yajaira Bhatia MD Primary Care Provider [phone] Bran Vásquez Primary Care Provider Reason for Referral * Non LOUIE (Routine) - Authorized/Booked Specialty Diagnoses / Procedures Referred By Manan bryan Referred To Contact Physical Therapy Procedures REFERRAL TO PHYSICAL THERAPY Bran Vásquez [address] [place] [address] [email or web address] Referral ID Status Reason Start Date Expiration Date V isits Requested Visits Authorized [id number] Authorized/B ooked 01/03/2023 04/07/2023 1 1 Reason for Visit * Reason Onset Date Comments Car Changer Feedback 01/03/2023 Physical therapy Ben order Encounter Details Date Type Department Care Team Description 01/03/2023 Telephone Adult Medicine [address] [phone] Bran Vásquez [address] [place] [address] Car Changer Feedback (Physical therapy [place] order) Social History Tobacco Use Types Packs/Day Years [...] encounter Miscellaneous Notes * Telephone Encounter - Juanita Ray - 01/03/2023 3:53 PM EDT Updated order to physical therapy is needed Ben 6.27.23 at 1130am Order has been pended Thank you documented in this encounter Plan of Treatment Not on file documented as of this encounter Visit Diagnoses Not on filedocumented in this encounter Care Teams Rib Cloth Knitter Relationship Specialty Start Date End Date Bran Vásquez [address] [place] [address] PCP - General Internal Medicine 12/01/21 08/13/23 Yajaira Bhatia MD [address] [place] [address] PCP - General Internal Medicine 08/14/23 09/18/23 Bran Vásquez [address] [place] [address] PCP - General Internal Medicine 09/19/23 David Valadez MD Specialist Cardiology 08/17/20 Madelin Lam NP [address] [address] Cardiology 08/17/20 documented as of this encounter
--- OUTSIDE RECORDS SUMMARY | 2025-05-20 06:21 | XMS_ITS | Encounter Summary ---
Author Organization [facility] Address [address] [place] [address] Care Team Providers Care Tucking Machine Operator Name Role Phone David Valadez MD Unavailable [phone] Madelin Lam NP Unavailable [phone] Santos Lubin MD Primary Care Provider [phone] Bran Vásquez Primary Care Provider [phone] Yajaira Bhatia MD Primary Care Provider [phone] Bran Vásquez Primary Care Provider Encounter Details Date Type Department Care Team Description 09/08/2021 Bone Crusher Report Medical Records [address] [place] [id number] [place] [address] [place] [address] Social History Tobacco Use Types Packs/Day Years [...] have Coronavirus / COVID-19? No / Unsure 09/06/2021 2:54 PM EST documented as of this encounter Plan of Treatment Not on file documented as of this encounter Visit Diagnoses Not on filedocumented in this encounter Care Teams Tucking Machine Operator Relationship Specialty Start Date End Date Santos Luibn MD [address] [place] [address] PCP - General Internal Medicine 06/15/21 11/30/21 Bran Vásquez [address] [place] [address] PCP - General Internal Medicine 12/01/21 08/13/23 Yajaira Bhatia MD [address] [place] [address] PCP - General Internal Medicine 08/14/23 09/18/23 Bran Vásquez [address] [place] [address] PCP - General Internal Medicine 09/19/23 David Valadez MD Specialist Cardiology 08/17/20 Madelin Lam NP [address] [place] [address] Cardiology 08/17/20 documented as of this encounter
--- OUTSIDE RECORDS SUMMARY | 2025-05-20 06:21 | XMS_ITS | Encounter Summary ---
Author Organization [facility] Address [address] [place] [address] Care Team Providers Care Residential Appraiser Name Role Phone David Valadez MD Unavailable [phone] Madelin Lam NP Unavailable [phone] Bran Vásquez Primary Care Provider Yajaira Bhatia MD Primary Care Provider [phone] Bran Vásquez Primary Care Provider [phone] Encounter Details Date Type Department Care Team Description 01/13/2023 Telephone Adult Medicine [address] [address] Bran Vásquez [address] [place] [address] [phone] Social History Tobacco Use Types Packs/Day Years [...] Exposure Response Date Recorded In the last 10 days, have yo u been in contact with someone who was confirmed or suspected to have Coronavirus/COVID-19? No / Unsure 01/13/2023 8:55 AM EDT documented as of this encounter Plan of Treatment Not on file documented as of this encounter Visit Diagnoses Not on filedocumented in this encounter Care Teams Residential Appraiser Relationship Specialty Start Date End Date Bran Vásquez [address] [place] [address] PCP - General Internal Medicine 12/01/21 08/13/23 Yajaira Bhatia MD [address] [place] [address] PCP - General Internal Medicine 08/14/23 09/18/23 Bran Vásquez [address] [place] [address] PCP - General Internal Medicine 09/19/23 David Valadez MD Specialist Cardiology 08/17/20 Madelin Lam NP [address] [place] [phone] Cardiology 08/17/20 documented as of this encounter
--- OUTSIDE RECORDS SUMMARY | 2025-05-20 06:21 | XMS_ITS | Encounter Summary ---
Author Organization [facility] Address [address] [place] [address] Care Team Providers Care Seat Builder Name Role Phone David Valadez MD Unavailable [phone] Madelin Lam NP Unavailable [phone] Santos Lubin MD Primary Care Provider [phone] Bran Vásquez Primary Care Provider Yajaira Bhatia MD Primary Care Provider Bran Vásquez Primary Care Provider [phone] Encounter Details Date Type Department Care Team Description 08/24/2021 Telephone Adult Medicine [address] [address] Fredi Read NP [address] [place] [address] Social History Tobacco Use Types Packs/Day Years [...] have Coronavirus / COVID-19? No / Unsure 08/12/2021 1:38 PM EST documented as of this encounter Miscellaneous Notes * Telephone Encounter - Lien Murillo - 08/25/2021 2:21 PM EST Bradford spoke with Vane (patient ) message below given to patient for 09/06/21 at 3:30 pm with Roro UNDERWOOD , CHAUNCEY RMA * Telephone Encounter - Sarahy Escalante - 08/25/2021 1:27 PM EST Patient did not answer- left voicemail. Please put call back to [phone] * Telephone Encounter - Sarahy Escalante - 08/24/2021 1:58 PM EST Patient did not answer- left voicemail. Please put call back to [phone] * Telephone Encounter - Fredi Read NP - 08/24/2021 11:27 AM EST Please book an in office appointment for medication review. documented in this encounter Plan of Treatment Not on file documented as of this encounter Visit Diagnoses Not on filedocumented in this encounter Care Teams Seat Builder Relationship Specialty Start Date End Date Santos Lubin MD [address] [place] [address] PCP - General Internal Medicine 06/15/21 11/30/21 Bran Vásquez [address] [place] [address] PCP - General Internal Medicine 12/01/21 08/13/23 Yajaira Bhatia MD [address] [place] [address] PCP - General Internal Medicine 08/14/23 09/18/23 Bran Vásquez [address] [place] [address] PCP - General Internal Medicine 09/19/23 David Valadez MD Specialist Cardiology 08/17/20 Madelin Lam, KJ [address] [address] Cardiology 08/17/20 documented as of this encounter
--- OUTSIDE RECORDS SUMMARY | 2025-05-20 06:21 | XMS_ITS | Encounter Summary ---
Author Organization [facility] Address [address] [place] [address] Care Team Providers Care Handle Turner Name Role Phone David Valadez MD Unavailable [phone] Madelin Lam NP Unavailable [phone] Bran Vásquez Primary Care Provider [phone] Encounter Details Date Type Department Care Team Description 02/06/2024 Morgue Librarian Report Medical Records [address] [place] [address] Crystal John PA-C Social History Tobacco Use Types Packs/Day Years [...] on filedocumented in this encounter Care Teams Handle Turner Relationship Specialty Start Date End Date Bran Vásquez [address] [place] [address] PCP - General Internal Medicine 09/19/23 David Valadez MD Specialist Cardiology 08/17/20 Madelin Lam, KJ [address] [address] Cardiology 08/17/20 documented as of this encounter
--- OUTSIDE RECORDS SUMMARY | 2025-05-20 06:21 | XMS_ITS | Encounter Summary ---
Author Organization [facility] Address [address] [place] [address] Care Team Providers Care Latex Thread Machine Operator Name Role Phone Luis Gagnon MD Primary Care Provide r Unavailable David Valadez MD Unavailable [phone] Madelin Lam NP Unavailable [phone] Santos Lubin MD Primary Care Provider [phone] Santos Lubin MD Primary Care Provider [facility] Primary Care Provider [facility] Santos Lubin MD Primary Care Provider [phone] Bran Vásquez Primary Care Provider Yajaira Bhatia MD Primary Care Provider Bran Vásquez Primary Care Provider Encounter Details Date Type Department Care Team Description 08/30/2020 Orders Only Adult Medicine - [place] [address] [place] [address] Luis Gagnon MD Social History Tobacco Use Types Packs/Day [...] have Coronavirus / COVID-19? No / Unsure 08/27/2020 1:33 PM EST documented as of this encounter Plan of Treatment Not on file documented as of this encounter Visit Diagnoses Not on filedocumented in this encounter Care Teams Latex Thread Machine Operator Relationship Specialty Start Date End Date Luis Gagnon MD PCP - General Internal Medicine 04/29/19 Santos Lubin MD [address] [place] [address] PCP - General Internal Medicine 09/23/20 03/30/21 Santos Lubin MD [address] [place] [address] PCP - General Internal Medicine 03/31/21 05/03/[address] [address] PCP - General Internal Medicine 05/04/21 06/14/21 Santos Lubin MD [address] [place] [address] PCP - General Internal Medicine 06/15/21 11/30/21 Bran Vásquez [address] [place] [address] PCP - General Internal Medicine 12/01/21 08/13/23 Yajaira Bhatia MD [address] [place] [address] PCP - General Internal Medicine 08/14/23 09/18/23 Bran Vásquez [address] [place] [address] PCP - General Internal Medicine 09/19/23 David Valadez MD Specialist Cardiology 08/17/20 Madelin Lam NP [address] [place] [phone] Cardiology 08/17/20 documented as of this encounter
--- OUTSIDE RECORDS SUMMARY | 2025-05-20 06:21 | XMS_ITS | Encounter Summary ---
Author Organization [facility] Address [address] [place] [address] Care Team Providers Care Broadcast Field Supervisor Name Role Phone Luis Gagnon MD Primary Care Provide r Unavailable David Valadez MD Unavailable [phone] Madelin Lam NP Unavailable [phone] Santos Lubin MD Primary Care Provider [phone] Santos Lubin MD Primary Care Provider [facility] Primary Care Provider [facility] Santos Lubin MD Primary Care Provider [phone] Bran Vásquez Primary Care Provider Yajaira Bhatia MD Primary Care Provider [phone] Bran Vásquez Primary Care Provider Reason for Visit * Reason Onset Date Comments medication problems 04/27/2020 Encounter Details Date Type Department Care Team Description 04/27/2020 Telephone Adult Medicine [address] [address] Luis Gagnon MD medication problems Social History [...] Miscellaneous Notes * Telephone Encounter - Urmila Huitron L.P.N. - 04/27/2020 2:01 PM EDT Sent to wrong pharmacy please re fax Please review in providers absence. * Telephone Encounter - Corinne Cota - 04/27/2020 12:29 PM EDT Who is calling? The patient Name of the medication Sennosides (SENNA) 8.6 MG Tab What is the specific problem or interaction? Pt states that the pharm never received this medication. Please refax. If the patient is having a problem with taking the med - how long has the problem been going on? N/A documented in this encounter Plan of Treatment Not on file documented as of this encounter Visit Diagnoses Not on filedocumented in this encounter Care Teams Broadcast Field Supervisor Relationship Specialty Start Date End Date Luis Gagnon MD PCP - General Internal Medicine 04/29/19 Santos Lubin MD [address] [place] [address] PCP - General Internal Medicine 09/23/20 03/30/21 Santos Lubin MD [address] [place] [address] PCP - General Internal Medicine 03/31/21 05/03/21 [facility], [address] [address] PCP - General Internal Medicine 05/04/21 06/14/21 Santos Lubin MD 305 [place] [address] PCP - General Internal Medicine 06/15/21 11/30/21 Bran Vásquez [address] [place] [address] PCP - General Internal Medicine 12/01/21 08/13/23 Yajaira Bhatia MD 230 [place] [address] PCP - General Internal Medicine 08/14/23 09/18/23 Bran Vásquez [address] [place] [address] PCP - General Internal Medicine 09/19/23 David Valadez MD Specialist Cardiology 08/17/20 Madelin Lam, KJ [address] [phone] Cardiology 08/17/20 documented as of this encounter
--- OUTSIDE RECORDS SUMMARY | 2025-05-20 06:21 | XMS_ITS | Encounter Summary ---
Author Organization [facility] Address [address] [place] [address] Care Team Providers Care Car Packer Name Role Phone David Valadez MD Unavailable [phone] Madelin Lam NP Unavailable [phone] Bran Vásquez Primary Care Provider Yajaira Bhatia MD Primary Care Provider [phone] Bran Vásquez Primary Care Provider [phone] Reason for Visit * Reason Comments E-prescribe Rx Request Encounter Details Date Type Department Care Team Description 06/13/2023 Refill Urogynecology [address] [phone] Kaycee Benjamin MD [address] [place] [address] [place] [address] E-prescribe Rx Request Social History Tobacco Use Types Packs/Day Years [...] suspected to have Coronavirus/COVID-19? No / Unsure 05/16/2023 11:26 AM EDT documented as of this encounter Miscellaneous Notes * Telephone Encounter - Kaycee Benjamin MD - 06/13/2023 9:33 AM EST Patient needs appointment Please give 90 supply with no refills - no additional refills until patient seen Kaycee Benjamin MD documented in this encounter Plan of Treatment Not on file documented as of this encounter Visit Diagnoses Diagnosis Urge incontinence Urgency of urination Nocturia documented in this encounter Care Teams Car Packer Relationship Specialty Start Date End Date Bran Vásquez [address] [place] [address] PCP - General Internal Medicine 12/01/21 08/13/23 Yajaira Bhatia MD [address] [place] [address] PCP - General Internal Medicine 08/14/23 09/18/23 Bran Vásquez [address] [place] [address] PCP - General Internal Medicine 09/19/23 David Valadez MD Specialist Cardiology 08/17/20 Madelin Lam NP [address] [place] [phone] Cardiology 08/17/20 documented as of this encounter
--- OUTSIDE RECORDS SUMMARY | 2025-05-20 06:21 | XMS_ITS | Encounter Summary ---
Author Organization [facility] Address [address] [place] [address] Care Team Providers Care Roller Mill Operator Name Role Phone David Valadez MD Unavailable [phone] Madelin Lam NP Unavailable [phone] Bran Vásquez Primary Care Provider Yajaira Bhatia MD Primary Care Provider [phone] Bran Vásquez Primary Care Provider [phone] Reason for Visit * Reason Comments E-prescribe Rx Request Encounter Details Date Type Department Care Team Description 06/12/2023 Refill Adult Medicine [address] [address] Bran Vásquez [address] [place] [phone] E-prescribe Rx Request Social History Tobacco Use [...] encounter Miscellaneous Notes * Telephone Encounter - Samuel Agudelo - 06/12/2023 11:58 AM EST Patient would like script to be: E-PRESCRIBED/FAXED TO PHARMACY WHEN WAS THE PATIENT'S LAST APPOINTMENT IN ADULT MEDICINE? 05/16/23 WHEN WAS THE LAST TIME THE PATIENT SAW THEIR PCP? Same as above Does patient have an upcoming appointment? Yes 09/19/23 (THE MEDICATION REQUESTED IS ON THE MED LIST ABOVE) All of the medications requested were on the CURRENT MEDS list Did you check the Pharmacy information above?: YES Patient wants: 30 -day supply Is this a mail order prescription request ? NO If the refill is from a FAXED refill request what is the RX # listed on the fax? N/A Patients current insurance carrier is: Payor: [facility] / Plan: O $0 [facility] [id number] / Product Type: HMO [id number] documented in this encounter Plan of Treatment Not on file documented as of this encounter Visit Diagnoses Not on filedocumented in this encounter Care Teams Roller Mill Operator Relationship Specialty Start Date End Date Bran Vásquez [address] [place] [address] PCP - General Internal Medicine 12/01/21 08/13/23 Yajaira Bhatia MD [address] [place] [address] PCP - General Internal Medicine 08/14/23 09/18/23 Bran Vásquez [address] [place] [address] PCP - General Internal Medicine 09/19/23 David Valadez MD Specialist Cardiology 08/17/20 Madelin Lam NP [address] [place] [phone] Cardiology 08/17/20 documented as of this encounter
--- OUTSIDE RECORDS SUMMARY | 2025-05-20 06:21 | XMS_ITS | Encounter Summary ---
Author Organization [facility] Address [address] [place] [address] Care Team Providers Care Cash Applications Analyst Name Role Phone David Valadez MD Unavailable [phone] Madelin Lam NP Unavailable [phone] Bran Vásquez Primary Care Provider [phone] Encounter Details Date Type Department Care Team Description 03/19/2024 Orders Only Medical Records [address] [place] [address] Crystal John PA-C Social History Tobacco Use [...] on file documented as of this encounter Procedures Procedure Name Priority Date/Time Associated Diagnosis Comments OUTSIDE CT Routine 03/14/2024 documented in this encounter Results * OUTSIDE CT (03/14/2024) Crystal John PA-C RADIOLOGY documented in this encounter Visit Diagnoses Not on filedocumented in this encounter Care Teams Cash Applications Analyst Relationship Specialty Start Date End Date Bran Vásquez [address] [place] [address] PCP - General Internal Medicine 09/19/23 David Valadez MD Specialist Cardiology 08/17/20 Madelin Lam NP [address] [place] [phone] Cardiology 08/17/20 documented as of this encounter
--- OUTSIDE RECORDS SUMMARY | 2025-05-20 06:21 | XMS_ITS | Encounter Summary ---
Author Organization [facility] Address [address] [place] [address] Care Team Providers Care Eight Section Blower Name Role Phone David Valadez MD Unavailable [phone] Madelin Lam NP Unavailable [phone] Bran Vásquez Primary Care Provider [phone] Reason for Visit * Reason Comments E-prescribe Rx Request Encounter Details Date Type Department Care Team Description 10/02/2023 Refill Urogynecology [address] [address] Kaycee Benjamin MD [address] [place] [address] [place], [place] [phone] E-prescribe Rx Request Social History Tobacco Use [...] Nocturia documented in this encounter Care Teams Eight Section Blower Relationship Specialty Start Date End Date Bran Vásquez [address] [place] [address] PCP - General Internal Medicine 09/19/23 David Valadez MD Specialist Cardiology 08/17/20 Madelin Lam NP [address] [address] Cardiology 08/17/20 documented as of this encounter
--- OUTSIDE RECORDS SUMMARY | 2025-05-20 06:21 | XMS_ITS | Encounter Summary ---
Author Organization [facility] Address [address] [place] [address] Care Team Providers Care Master Control Technician Name Role Phone David Valadez MD Unavailable [phone] Madelin Lam NP Unavailable [phone] Bran Vásquez Primary Care Provider Yajaira Bhatia MD Primary Care Provider [phone] Bran Vásquez Primary Care Provider [phone] Reason for Visit * Reason Comments Remote Device Check ALERT: New AF, longe st episode 24 seconds, no OAC Encounter Details Date Type Department Care Team Description 07/18/2023 Remote Device Check Cardio PVC POC 154 300 [facility] [address] [place] [address] Nina Cruz MD 300 [facility] [address] [place] [address] Social History Tobacco Use Types Packs/Day Years [...] on filedocumented in this encounter Care Teams Master Control Technician Relationship Specialty Start Date End Date Bran Vásquez [address] [place] [address] PCP - General Internal Medicine 12/01/21 08/13/23 Yajaira Bhatia MD [address] [place] [address] PCP - General Internal Medicine 08/14/23 09/18/23 [address] [place] [address] PCP - General Internal Medicine 09/19/23 David Valadez MD Specialist Cardiology 08/17/20 Madelin Lam, KJ [address] [phone] Cardiology 08/17/20 documented as of this encounter
--- OUTSIDE RECORDS SUMMARY | 2025-05-20 06:21 | XMS_ITS | Encounter Summary ---
Author Organization [facility] Address [address] [place] [address] Care Team Providers Care Pan Shaker Name Role Phone David Valadez MD Unavailable [phone] Madelin Lam NP Unavailable [phone] Santos Lubin MD Primary Care Provider [phone] Bran Vásquez Primary Care Provider Yajaira Bhatia MD Primary Care Provider Bran Vásquez Primary Care Provider [phone] Reason for Visit * Reason Comments E-prescribe Rx Request Encounter Details Date Type Department Care Team Description 10/27/2021 Refill Adult Medicine - [address] [address] Fredi Read NP [address] [place] [address] E-prescribe Rx Request Social History Tobacco Use [...] encounter Miscellaneous Notes * Telephone Encounter - Jacquelyn Vasquez M.A. - 10/28/2021 9:29 AM EDT Faxed to pharmacy * Telephone Encounter - Anya Lima M.A. - 10/28/2021 8:36 AM EDT Raquel 09/06/21 no pended appt Lab Results Component Value Date NA 137 08/18/2021 K 4.5 08/18/2021 CO2 26 08/18/2021 CL 105 08/18/2021 BUN 14 08/18/2021 CREAT 0.79 08/18/2021 GLU 151 08/18/2021 CA 9.9 08/18/2021 GFR > 60 08/18/2021 * Telephone Encounter - Iraida Morales - 10/27/2021 2:54 PM EDT Patient would like script to be: E-PRESCRIBED/FAXED TO PHARMACY WHEN WAS THE PATIENT'S LAST APPOINTMENT IN ADULT MEDICINE? 09-06-21 WHEN WAS THE LAST TIME THE PATIENT SAW THEIR PCP? Has not seen pcp Does patient have an upcoming appointment? No (THE MEDICATION REQUESTED IS ON THE MED LIST ABOVE) One or some of the medications requested were on the HISTORICAL MED list Did you check the Pharmacy information above?: YES Patient wants: 30 -day supply Is this a mail order prescription request ? NO If the refill is from a FAXED refill request what is the RX # listed on the fax? N/A Patients current insurance carrier is: [place] / [place] / Product Type: MEDICARE [id number] documented in this encounter Plan of Treatment Not on file documented as of this encounter Visit Diagnoses Not on filedocumented in this encounter Care Teams Pan Shaker Relationship Specialty Start Date End Date Santos Lubin MD [address] [place] [address] PCP - General Internal Medicine 06/15/21 11/30/21 Bran Vásquez [address] [place] [address] PCP - General Internal Medicine 12/01/21 08/13/23 Yajaira Bhatia MD [address] [place] [address] PCP - General Internal Medicine 08/14/23 09/18/23 Bran Vásquez [address] [place] [address] PCP - General Internal Medicine 09/19/23 David Valadez MD Specialist Cardiology 08/17/20 Madelin Lam NP [address] [address] Cardiology 08/17/20 documented as of this encounter
--- OUTSIDE RECORDS SUMMARY | 2025-05-20 06:21 | XMS_ITS | Encounter Summary ---
Author Organization [facility] Address [address] [place] [address] Care Team Providers Care Trader Name Role Phone David Valadez MD Unavailable [phone] Madelin Lam NP Unavailable [phone] Barn Vásquez Primary Care Provider Yajaira Bhatia MD Primary Care Provider [phone] Bran Vásqeuz Primary Care Provider Encounter Details Date Type Department Care Team Description 05/11/2023 Orders Only Adult Medicine [address] [address] Bran Vásquez [address] [place] [address] [phone] Social History Tobacco Use Types Packs/Day Years [...] on filedocumented in this encounter Care Teams Trader Relationship Specialty Start Date End Date Bran V[address] [place] [address] PCP - General Internal Medicine 12/01/21 08/13/23 Yajaira Bhatia MD [address] [place] [address] PCP - General Internal Medicine 08/14/23 09/18/23 Bran Vásquez [address] [place] [address] PCP - General Internal Medicine 09/19/23 David Valadez MD Specialist Cardiology 08/17/20 Madelin Lam, KJ [address] [phone] Cardiology 08/17/20 documented as of this encounter
--- OUTSIDE RECORDS SUMMARY | 2025-05-20 06:21 | XMS_ITS | Encounter Summary ---
Author Organization [facility] Address [address] [place] [address] Care Team Providers Care Clinical Supervisor Name Role Phone David Valadez MD Unavailable [phone] Madelin Lam NP Unavailable [phone] Bran Vásquez Primary Care Provider Yajaira Bhatia MD Primary Care Provider [phone] Bran Vásquez Primary Care Provider [phone] Reason for Visit * Reason Comments Remote Device Check Encounter Details Date Type Department Care Team Description 12/03/2021 Remote Device Check Cardio PVC POC [address] [address] Nina Cruz MD 300 [facility] [place] [address] [place] [address] Social History Tobacco Use Types Packs/Day Years [...] on filedocumented in this encounter Care Teams Clinical Supervisor Relationship Specialty Start Date End Date Bran Vásquez [address] [place] [address] PCP - General Internal Medicine 12/01/21 08/13/23 Yajaira Bhatia MD [address] [place] [address] PCP - General Internal Medicine 08/14/23 09/18/23 Bran Vásquez [address] [place] [address] PCP - General Internal Medicine 09/19/23 David Valadez MD Specialist Cardiology 08/17/20 Madelin Lam, KJ [address] [place] [phone] Cardiology 08/17/20 documented as of this encounter
--- OUTSIDE RECORDS SUMMARY | 2025-05-20 06:21 | XMS_ITS | Encounter Summary ---
Author Organization [facility] Address [address] [place] [address] Care Team Providers Care Junior Technical Writer Name Role Phone David Valadez MD Unavailable [phone] Madelin Lma NP Unavailable [phone] Bran Vásquez Primary Care Provider [phone] Yajaira Bhatia MD Primary Care Provider [phone] Bran Vásquez Primary Care Provider [phone] Encounter Details Date Type Department Care Team Description 04/25/2022 Orders Only Vascular Surgery - [place] 300 [facility] [address] [place] [phone] Sameera Kang PA-C [address] [address] Chronic mesenteric ischemia (HCC) Social History Tobacco Use Types Packs/Day Years [...] Procedure Name Priority Date/Time Associated Diagnosis Comments CT ANGIO ABD & PELVIS W/WO CONTRAST Routine 04/22/2022 Chronic mesenteric ischemia (HCC) documented in this encounter Results * CT ANGIO ABD & PELVIS W/WO CONTRAST (04/22/2022) Sameera Kang PA-C CT SCANS documented in this encounter Visit Diagnoses Diagnosis Chronic mesenteric ischemia (HCC) Chronic vascular insufficiency of intestine documented in this encounter Care Teams Junior Technical Writer Relationship Specialty Start Date End Date Bran Vásquez [address] [place] [address] PCP - General Internal Medicine 12/01/21 08/13/23 Yajaira Bhatia MD [address] [place] [address] PCP - General Internal Medicine 08/14/23 09/18/23 Bran Vásquez [address] [place] [address] PCP - General Internal Medicine 09/19/23 David Valadez MD Specialist Cardiology 08/17/20 Madelin Lam NP [address] [place] [address] Cardiology 08/17/20 documented as of this encounter
--- OUTSIDE RECORDS SUMMARY | 2025-05-20 06:22 | XMS_ITS | Encounter Summary ---
Author Organization [facility] Address [address] [place] [address] Care Team Providers Care Technical Administrator Name Role Phone Luis Gagnon MD Primary Care Provide r Unavailable David Valadez MD Unavailable Madelin Lam NP Unavailable [phone] Santos Lubin MD Primary Care Provider [phone] Santos Lubin MD Primary Care Provider [phone] Formerly [facility], 1928–1983, [facility] Primary Care Provider Unavailabl e Santos Lubin MD Primary Care Provider [phone] Bran Vásquez Primary Care Provider [phone] Yajaira Bhatia MD Primary Care Provider [phone] Bran Vásquez Primary Care Provider Reason for Referral * Non LOUIE (Routine) - Unable to reach/declined Specialty Diagnoses / Procedures Referred By Manan t Referred To Contact Nephrology Procedures REFERRAL TO NEPHROLOGY Luis Gagnon MD [address] [place] [address] [facility] [address] [place] [address] Referral ID Status Reason Start Date Expiration Date V isits Requested Visits Authorized [id number] 09/29-LTR Unable to reach/decli tate 09/18/2019 09/17/2020 1 1 Encounter Details Date Type Department Care Team Description 09/18/2019 Orders Only Adult Medicine - [address] [address] Luis Gagnon MD Hyponatremia Social History Tobacco Use Types Packs/Day Years [...] on file documented as of this encounter Results * OSMOLALITY, URINE RANDOM (04/23/2020 10:10 AM EDT) OSMOLALITY,URIN E 377 300 - 1300 uosm/kg 04/23/2020 4:41 PM EDT [facility] 04/23/2020 10:1 0 AM EDT 04/23/2020 10:14 AM EDT Narrative [facility] - 04/23/2020 4:41 PM EDT Is Patient Fasting ?->No Luis Gagnon MD LAB Performing Organization Address [facility] de Phone Number [facility] * CHLORIDES, RANDOM URINE (04/23/2020 10:10 AM EDT) CHLORIDE, RANDOM URINE 49 mmol/L 04/23/2020 4:06 PM EDT [facility] 04/23/2020 10:1 0 AM EDT 04/23/2020 10:14 AM EDT Narrative [facility] - 04/23/2020 4:06 PM EDT Is Patient Fasting ?->No Luis Gagnon MD LAB Performing Organization Address [facility] Co de Phone Number [facility] * SODIUM, RANDOM URINE (04/23/2020 10:10 AM EDT) SODIUM, RANDOM URINE 21 mmol/L 04/23/2020 4:06 PM EDT [facility] 04/23/2020 10:1 0 AM EDT 04/23/2020 10:14 AM EDT Narrative [facility] - 04/23/2020 4:06 PM EDT Is Patient Fasting ?->No Luis Gagnon MD LAB Performing Organization Address City/[facility]/ZIP Co de Phone Number [facility] * (ABNORMAL) MICROALBUMIN/CREATININE, URINE (02/10/2020 1:28 PM EDT) CREATININE, RANDOM URINE 54 mg/dL 02/10/2020 5:25 PM EDT [facility] MICROALBUMIN, RANDOM 75.9(H) 0.0 - 29.0 mg/L 02/10/2020 5:31 PM EDT [facility] MICROALB/CRE RATIO RANDOM 140.5(H) 0.0 - 30.0 mg/G 02/10/2020 5:31 PM EDT [facility] 02/10/2020 1:28 PM EDT 02/10/2020 1:31 PM EDT Luis Gagnon MD LAB Performing Organization Address [facility] Co de Phone Number [facility] documented in this encounter Visit Diagnoses Diagnosis Hyponatremia Hyposmolality and/or hyponatremia documented in this encounter Care Teams Technical Administrator Relationship Specialty Start Date End Date Luis Gagnon MD PCP - General Internal Medicine 04/29/19 Santos Lubin MD [address] [place] [address] PCP - General Internal Medicine 09/23/20 03/30/21 Santos Lubin MD [address] [place] [address] PCP - General Internal Medicine 03/31/21 05/03/21 Community, Pcp [address] [place] [address] PCP - General Internal Medicine 05/04/21 06/14/21 Santos Lubin MD [address] [place] [address] PCP - General Internal Medicine 06/15/21 11/30/21 Bran Vásquez [address] [place] [address] PCP - General Internal Medicine 12/01/21 08/13/23 Yajaira Bhatia MD [address] [place] [address] PCP - General Internal Medicine 08/14/23 09/18/23 Bran Vásquez [address] [place] [address] PCP - General Internal Medicine 09/19/23 David Valadez MD Specialist Cardiology 08/17/20 Madelin Lam, KJ [address] [address] Cardiology 08/17/20 documented as of this encounter
--- OUTSIDE RECORDS SUMMARY | 2025-05-20 06:22 | XMS_ITS | Encounter Summary ---
Author Organization [facility] Address [address] [place] [address] Care Team Providers Care Qc Chemist Name Role Phone Luis Gagnon MD Primary Care Provide r Unavailable David Valadez MD Unavailable [phone] Madelin Lam NP Unavailable [phone] Santos Lubin MD Primary Care Provider Santos Lubin MD Primary Care Provider [phone] [facility] Primary Care Provider Unavailabl e Santos Lubin MD Primary Care Provider Bran Vásquez Primary Care Provider [phone] Yajaira Bhatia MD Primary Care Provider [phone] Bran Vásquez Primary Care Provider [phone] Encounter Details Date Type Department Care Team Description 09/24/2019 Release of Information Medical Records [address] [place] [id number] Abstract, Provider Social History Tobacco Use Types Packs/Day Years [...] on filedocumented in this encounter Care Teams Qc Chemist Relationship Specialty Start Date End Date Luis Gagnon MD PCP - General Internal Medicine 04/29/19 Santos Lubin MD [address] [place] [address] PCP - General Internal Medicine 09/23/20 03/30/21 Santos Lubin MD [address] [place] [address] PCP - General Internal Medicine 03/31/21 05/03/[address] [address] PCP - General Internal Medicine 05/04/21 06/14/21 Santos Lubin MD [address] [place] [address] PCP - General Internal Medicine 06/15/21 11/30/21 Bran Vásquez [address] [place] [address] PCP - General Internal Medicine 12/01/21 08/13/23 Yajaira Bhatia MD [address] [place] [address] PCP - General Internal Medicine 08/14/23 09/18/23 Bran Vásquez [address] [place] [address] PCP - General Internal Medicine 09/19/23 David Valadez MD Specialist Cardiology 08/17/20 Madelin Lam, MANAGER SAFE [address] [address] Cardiology 08/17/20 documented as of this encounter
--- OUTSIDE RECORDS SUMMARY | 2025-05-20 06:22 | XMS_ITS | Encounter Summary ---
Author Organization [facility] Address [address] [place] [address] Care Team Providers Care Oil Distributor Name Role Phone David Valadez MD Unavailable [phone] Madelin Lam NP Unavailable [phone] Santos Lubin MD Primary Care Provider [phone] Santos Lubin MD Primary Care Provider [phone] [facility], Pcp Primary Care Provider [facility] Santos Lubin MD Primary Care Provider [phone] Bran Vásquez Primary Care Provider Yajaira Bhatia MD Primary Care Provider [phone] Bran Vásquez Primary Care Provider Encounter Details Date Type Department Care Team Description 03/16/2021 Telephone Adult Medicine - [place] [address] [place] [address] Santos Lubin MD 305 [place] [address] Social History Tobacco Use Types Packs/Day Years [...] have Coronavirus / COVID-19? No / Unsure 02/24/2021 3:15 PM EDT documented as of this encounter Plan of Treatment Not on file documented as of this encounter Visit Diagnoses Not on filedocumented in this encounter Care Teams Oil Distributor Relationship Specialty Start Date End Date Santos Lubin MD [address] [place] [address] PCP - General Internal Medicine 09/23/20 03/30/21 Santos Lubin MD [address] [place] [address] PCP - General Internal Medicine 03/31/21 05/03/[address] [address] PCP - General Internal Medicine 05/04/21 06/14/21 Santos Lubin MD [address] [place] [address] PCP - General Internal Medicine 06/15/21 11/30/21 Bran Vásquez [address] [place] [address] PCP - General Internal Medicine 12/01/21 08/13/23 Yajaira Bhatia MD 230 [place] [address] PCP - General Internal Medicine 08/14/23 09/18/23 Bran Vásquez [address] [place] [address] PCP - General Internal Medicine 09/19/23 David Valadez MD Specialist Cardiology 08/17/20 Madelin Lam NP [address] [address] Cardiology 08/17/20 documented as of this encounter
--- OUTSIDE RECORDS SUMMARY | 2025-05-20 06:22 | XMS_ITS | Encounter Summary ---
Author Organization [facility] Address [address] [place] [address] Care Team Providers Care Sub Plant Manager Name Role Phone David Valadez MD Unavailable [phone] Madelin Lam NP Unavailable [phone] Santos Lubin MD Primary Care Provider [phone] Santos Lubin MD Primary Care Provider [phone] [facility], Pcp Primary Care Provider [facility] Santos Lubin MD Primary Care Provider Bran Vásquez Primary Care Provider Yajaira Bhatia MD Primary Care Provider [phone] Bran Vásquez Primary Care Provider Reason for Visit * Reason Comments E-prescribe Rx Request Encounter Details Date Type Department Care Team Description 03/22/2021 Refill Adult Medicine [address] [address] Fredi Read NP 305 [place] [address] E-prescribe Rx Request Social History Tobacco Use [...] have Coronavirus / COVID-19? No / Unsure 03/22/2021 10:01 AM EDT documented as of this encounter Miscellaneous Notes * Telephone Encounter - Noa Ervin C.M.A. - 03/22/2021 3:51 PM EDT Raquel 03/22/21 no new appt pended Lab Results Component Value Date NA 137 01/22/2021 K 5.0 01/22/2021 CO2 23 01/22/2021 CL 103 01/22/2021 BUN 17 01/22/2021 CREAT 0.86 01/22/2021 GLU 160 01/22/2021 CA 9.5 01/22/2021 GFR > 60 01/22/2021 * Telephone Encounter - Iraidamaryuri Morales - 03/22/2021 1:54 PM EDT Patient would like script to be: E-PRESCRIBED/FAXED TO PHARMACY WHEN WAS THE PATIENT'S LAST APPOINTMENT IN ADULT MEDICINE? 03/22/21 WHEN WAS THE LAST TIME THE PATIENT [...] / [place] / Product Type: [place]ICARE [id number] documented in this encounter Plan of Treatment Not on file documented as of this encounter Visit Diagnoses Not on filedocumented in this encounter Care Teams Sub Plant Manager Relationship Specialty Start Date End Date Santos Lubin MD [address] [place] [address] PCP - General Internal Medicine 09/23/20 03/30/21 Santos Lubin MD [address] [place] [address] PCP - General Internal Medicine 03/31/21 05/03/[address] [address] PCP - General Internal Medicine 05/04/21 06/14/21 Santos Lubin MD [address] [place] [address] PCP - General Internal Medicine 06/15/21 11/30/21 Bran Vásquez [address] [place] [address] PCP - General Internal Medicine 12/01/21 08/13/23 Yajaira Bhatia MD 230 [place] [address] PCP - General Internal Medicine 08/14/23 09/18/23 Bran Vásquez [address] [place] [address] PCP - General Internal Medicine 09/19/23 David Valadez MD Specialist Cardiology 08/17/20 Madelin Lam NP [address] [place] [phone] Cardiology 08/17/20 documented as of this encounter
--- OUTSIDE RECORDS SUMMARY | 2025-05-20 06:22 | XMS_ITS | Encounter Summary ---
Author Organization [facility] Address [address] [place] [address] Care Team Providers Care Cutter Out Name Role Phone David Valadez MD Unavailable [phone] Madelin Lam NP Unavailable [phone] Bran Vásquez Primary Care Provider Yajaira Bhatia MD Primary Care Provider [phone] Bran Vásquez Primary Care Provider Reason for Visit * Reason Comments E-prescribe Rx Request Encounter Details Date Type Department Care Team Description 08/20/2022 Refill Adult Medicine [address] [phone] Bran Vásquez [address] [place] [phone] E-prescribe Rx Request Social History Tobacco Use [...] suspected to have Coronavirus/COVID-19? No / Unsure 08/19/2022 9:34 AM EST documented as of this encounter Miscellaneous Notes * Telephone Encounter - Tiffani Horner L.P.NAshley - 08/20/2022 11:23 AM EST Last visit 07/27/22 Next visit 09/13/22 documented in this encounter Plan of Treatment Not on file documented as of this encounter Visit Diagnoses Not on filedocumented in this encounter Care Teams Cutter Out Relationship Specialty Start Date End Date Bran V[address] [address] PCP - General Internal Medicine 12/01/21 08/13/23 Yajaira Bhatia MD [address] [place] [address] PCP - General Internal Medicine 08/14/23 09/18/23 Bran [address] [place] [address] PCP - General Internal Medicine 09/19/23 David Valadez MD Specialist Cardiology 08/17/20 Madelin Lam NP [address] [place] [phone] Cardiology 08/17/20 documented as of this encounter
--- OUTSIDE RECORDS SUMMARY | 2025-05-20 06:22 | XMS_ITS | Encounter Summary ---
Author Organization [facility] Address [address] [place] [address] Care Team Providers Care Director Housekeeping Name Role Phone Luis Gagnon MD Primary Care Provide r Unavailable David Valadez MD Unavailable [phone] Madelin Lam NP Unavailable [phone] Santos Lubin MD Primary Care Provider Santos Lubin MD Primary Care Provider [phone] [facility] Primary Care Provider Unavailabl e Santos Lubin MD Primary Care Provider Bran Vásquez Primary Care Provider Yajaira Bhatia MD Primary Care Provider Bran Vásquez Primary Care Provider Encounter Details Date Type Department Care Team Description 08/06/2019 [facility] Medical Records [address] [place], [place] [address] [place] [address] Social History Tobacco Use Types Packs/Day Years [...] on filedocumented in this encounter Care Teams Director Housekeeping Relationship Specialty Start Date End Date Luis Gagnon MD PCP - General Internal Medicine 04/29/19 Santos Lubin MD [address] [place] [address] PCP - General Internal Medicine 09/23/20 03/30/21 Santos Lubin MD [address] [place] [address] PCP - General Internal Medicine 03/31/21 05/03/[address] [address] PCP - General Internal Medicine 05/04/21 06/14/21 Santos Lubin MD [address] [place] [address] PCP - General Internal Medicine 06/15/21 11/30/21 Bran Vásquez [address] [place] [address] PCP - General Internal Medicine 12/01/21 08/13/23 Yajaira Bhatia MD [address] [place] [address] PCP - General Internal Medicine 08/14/23 09/18/23 Bran Vásquez [address] [place] [address] PCP - General Internal Medicine 09/19/23 David Valadez MD Specialist Cardiology 08/17/20 Madelin Lam, PROMOTIONS EXECUTIVE [address] [address] Cardiology 08/17/20 documented as of this encounter
--- OUTSIDE RECORDS SUMMARY | 2025-05-20 06:22 | XMS_ITS | Encounter Summary ---
Author Organization [facility] Address [address] [place] [address] Care Team Providers Care Motor Vehicle Technician Name Role Phone David Valadez MD Unavailable [phone] Madelin Lam NP Unavailable [phone] Santos Lubin MD Primary Care Provider [phone] Santos Lubin MD Primary Care Provider [phone] [facility], Pcp Primary Care Provider [facility] Santos Lubin MD Primary Care Provider [phone] Bran Vásquez Primary Care Provider [phone] Yajaira Bhatia MD Primary Care Provider [phone] Bran Vásquez Primary Care Provider [phone] Reason for Visit * Reason Onset Date Comments injection 03/05/2021 Encounter Details Date Type Department Care Team Description 03/05/[address] [facility] [address] [place] [address] Santos Lubin MD [address] [place] [address] injection Social History Tobacco Use Types Packs/Day Years [...] PM EDT documented as of this encounter Miscellaneous Notes * Telephone Encounter - Michelle King - 03/09/2021 11:52 AM EDT Spoke to patient and she goes to a clinic for her cortisone shots. * Telephone Encounter - Heidi BishopP.NAshley - 03/05/2021 2:49 PM EDT I do not see that she has received any cortisone injections by us at all. Is she calling the correct office? Nothing mentioned in any office notes about cortisone injections being ordered. * Telephone Encounter - Leslie Eavns - 03/05/2021 11:59 AM EDT Request for repeat injection Date of last injection: 01/21/2021: Cortizone inj Location/body part where pain is being experienced: Both knees Is this the same pain you had before your last injection?: yes Any recent injury: NO Patient accidentally called [place] office. Was confused as [place] Sor[place] is not her first language. Was able to help her and told her we'd make sure the message got to the right office. May need an sales merchandise associate to schedule the injection appt documented in this encounter Plan of Treatment Not on file documented as of this encounter Visit Diagnoses Not on filedocumented in this encounter Care Teams Motor Vehicle Technician Relationship Specialty Start Date End Date Santos Lubin MD [address] [place] [address] PCP - General Internal Medicine 09/23/20 03/30/21 Santos Lubin MD [address] [place] [address] PCP - General Internal Medicine 03/31/21 05/03/21 [facility], [address] [address] PCP - General Internal Medicine 05/04/21 06/14/21 Santos Lubin MD [address] [place] [address] PCP - General Internal Medicine 06/15/21 11/30/21 Bran Vásquez [address] [place] [address] PCP - General Internal Medicine 12/01/21 08/13/23 Yajaira Bhatia MD [address] [place] [address] PCP - General Internal Medicine 08/14/23 09/18/23 Bran Vásquez [address] [place] [address] PCP - General Internal Medicine 09/19/23 David Valadez MD Specialist Cardiology 08/17/20 Madelin Lam NP [address] [address] Cardiology 08/17/20 documented as of this encounter
--- OUTSIDE RECORDS SUMMARY | 2025-05-20 06:22 | XMS_ITS | Encounter Summary ---
Author Organization [facility] Address [address] [place] [address] Care Team Providers Care Grout Machine Tender Name Role Phone David Valadez MD Unavailable [phone] Madelin Lam NP Unavailable [phone] [facility], Pcp Primary Care Provider [facility] Santos Jones MD Primary Care Provider [phone] Bran Vásquez Primary Care Provider [phone] Yajaira Bhatia MD Primary Care Provider Bran Vásquez Primary Care Provider [phone] Encounter Details Date Type Department Care Team Description 05/10/2021 SCAN Medical Records [address] [place] [address] Sameera Kang PA-C 300 [facility] [address] [place] [phone] Social History Tobacco Use Types Packs/Day Years [...] Date/Time Associated Diagnosis Comments OUTSIDE CT Routine 05/10/2021 documented in this encounter Results * OUTSIDE CT (05/10/2021) Provider Abstract RADIOLOGY documented in this encounter Visit Diagnoses Not on filedocumented in this encounter Care Teams Grout Machine Tender Relationship Specialty Start Date End Date Community, Pcp [address] [address] PCP - General Internal Medicine 05/04/21 Santos Lubin MD [address] [place] [address] PCP - General Internal Medicine 06/15/21 11/30/21 Bran Vásquez [address] [place] [address] PCP - General Internal Medicine 12/01/21 08/13/23 Yajaira Bhatia MD [address] [place] [address] PCP - General Internal Medicine 08/14/23 09/18/23 Bran Vásquez [address] [place] [address] PCP - General Internal Medicine 09/19/23 David Valadez MD Specialist Cardiology 08/17/20 Madelin Lam NP [address] [address] Cardiology 08/17/20 documented as of this encounter
--- OUTSIDE RECORDS SUMMARY | 2025-05-20 06:22 | XMS_ITS | Encounter Summary ---
Author Organization [facility] Address [address] [place] [address] Care Team Providers Care Fruit Trimmer Name Role Phone David Valadez MD Unavailable [phone] Madelin Lam NP Unavailable [phone] Santos Lubin MD Primary Care Provider [phone] [facility], Pcp Primary Care Provider [facility] Santos Lubin MD Primary Care Provider [phone] Bran Vásquez Primary Care Provider [phone] Yajaira Bhatia MD Primary Care Provider [phone] Bran Vásquez Primary Care Provider [phone] Encounter Details Date Type Department Care Team Description 04/22/2021 Telephone Adult Medicine [address] [id number] Santos Lubin MD [address] [place] [address] [id number] Social History Tobacco Use Types Packs/Day Years [...] have Coronavirus / COVID-19? No / Unsure 04/23/2021 3:23 PM EDT documented as of this encounter Miscellaneous Notes * Telephone Encounter - Aleena Fair - 04/22/2021 2:37 PM EDT ----- Message from Fredi Read NP sent at 04/22/2021 8:12 AM EDT ----- Please let patient know that the result of chest x-ray is okay but I placed an order for chest CT because of her weight loss and hisotry of smoking. * Telephone Encounter - Rena Mora - 04/22/2021 10:34 AM EDT Pt notified. * Telephone Encounter - Carrillo Washington - 04/22/2021 8:57 AM EDT Left message to return call, please put call through to [phone] or remessage to B pool * Telephone Encounter - Carrillo Washington - 04/22/2021 8:57 AM EDT ----- Message from Fredi Read NP sent at 04/22/2021 8:12 AM EDT ----- Please let patient know that the result of chest x-ray is okay but I placed an order for chest CT because of her weight loss and hisotry of smoking. documented in this encounter Plan of Treatment Not on file documented as of this encounter Visit Diagnoses Not on filedocumented in this encounter Care Teams Fruit Trimmer Relationship Specialty Start Date End Date Santos Lubin MD [address] [place] [address] PCP - General Internal Medicine 03/31/21 05/03/21 [facility], Pcp [address] [place] [address] PCP - General Internal Medicine 05/04/21 06/14/21 Santos Lubin MD [address] [place] [address] PCP - General Internal Medicine 06/15/21 11/30/21 Bran Vásquez [address] [place] [address] PCP - General Internal Medicine 12/01/21 08/13/23 Yajaira Bhatia MD [address] [address] PCP - General Internal Medicine 08/14/23 09/18/23 Bran Vásquez [address] [place] [address] PCP - General Internal Medicine 09/19/23 David Valadez MD Specialist Cardiology 08/17/20 Madelin Lam, KJ [address] [phone] Cardiology 08/17/20 documented as of this encounter
--- OUTSIDE RECORDS SUMMARY | 2025-05-20 06:22 | XMS_ITS | Encounter Summary ---
Author Organization [facility] Address [address] [place] [address] Care Team Providers Care Bag Machine Adjuster Name Role Phone David Valadez MD Unavailable [phone] Madelin Lam NP Unavailable [phone] Bran Vásquez Primary Care Provider [phone] Yajaira Bhatia MD Primary Care Provider [phone] Bran Vásquez Primary Care Provider [phone] Encounter Details Date Type Department Care Team Description 10/19/2022 Advertising Account Representative Report Medical Records [address] [place] [address] Samuel Camargo MD Social History Tobacco Use Types Packs/Day [...] on filedocumented in this encounter Care Teams Bag Machine Adjuster Relationship Specialty Start Date End Date Bran Vásquez [address] [place] [address] PCP - General Internal Medicine 12/01/21 08/13/23 Yajaira Bhatia MD [address] [place] [address] PCP - General Internal Medicine 08/14/23 09/18/23 Bran Vásquez [address] [place] [address] PCP - General Internal Medicine 09/19/23 David Valadez MD Specialist Cardiology 08/17/20 Madelin Lam, KJ [address] [address] Cardiology 08/17/20 documented as of this encounter
--- OUTSIDE RECORDS SUMMARY | 2025-05-20 06:22 | XMS_ITS | Encounter Summary ---
Author Organization [facility] Address [address] [place] [address] Care Team Providers Care District Gauger Name Role Phone David Valadez MD Unavailable [phone] Madelin Lam NP Unavailable [phone] Bran Vásquez Primary Care Provider [phone] Yajaira Bhatia MD Primary Care Provider [phone] Bran Vásquez Primary Care Provider [phone] Encounter Details Date Type Department Care Team Description 06/30/2022 Telephone Cardio PVCA Diag Testing 101 300 [facility] [address] [place], [place] [id number] Madelin Lam NP [address] [place] [phone] Social History Tobacco Use Types Packs/Day Years [...] suspected to have Coronavirus/COVID-19? No / Unsure 06/20/2022 1:20 PM EST documented as of this encounter Miscellaneous Notes * Telephone Encounter - Madelin Lam NP - 06/30/2022 2:37 PM EST Pt is primarily chilean speaking - when she is called to scheduled PET please ensure assembler trim - thank youi documented in this encounter Plan of Treatment Not on file documented as of this encounter Visit Diagnoses Not on filedocumented in this encounter Care Teams District Gauger Relationship Specialty Start Date End Date Bran Vásquez [address] [place] [address] PCP - General Internal Medicine 12/01/21 08/13/23 Yajaira Bhatia MD [address] [place] [address] PCP - General Internal Medicine 08/14/23 09/18/23 [address] [place] [address] PCP - General Internal Medicine 09/19/23 David Valadez MD Specialist Cardiology 08/17/20 Madelin Lam NP [address] [address] Cardiology 08/17/20 documented as of this encounter
--- OUTSIDE RECORDS SUMMARY | 2025-05-20 06:22 | XMS_ITS | Encounter Summary ---
Author Organization [facility] Address [address] [place] [address] Care Team Providers Care Salt Miner Name Role Phone Luis Gagnon MD Primary Care Provide r Unavailable David Valadez MD Unavailable [phone] Madelin Lam NP Unavailable [phone] Santos Lubin MD Primary Care Provider [phone] Santos Lubin MD Primary Care Provider [facility] Primary Care Provider [facility] Santos Lubin MD Primary Care Provider [phone] Bran Vásquez Primary Care Provider [phone] Yajaira Bhatia MD Primary Care Provider Bran Vásquez Primary Care Provider Encounter Details Date Type Department Care Team Description 06/14/2019 Telephone Adult [facility] [address] [place] [address] Primitivo Yusuf MD [address] [place] [address] Social History Tobacco Use Types Packs/Day Years [...] encounter Miscellaneous Notes * Telephone Encounter - Micki Durham M.A. - 06/21/2019 9:[address] Davison sent patient a letter. Patient's only contact number remains unreachable. * Telephone Encounter - Candy RooneyP.NAshley - 06/18/2019 2:35 PM EST [phone] (home) Line busy * Telephone Encounter - Primitivo Yusuf MD - 06/17/2019 5:02 PM EST She has a UTI and needs to be treated I sent her a letter * Telephone Encounter - Natividad BishopPAshleyNAshley - 06/17/2019 4:06 PM EST Not sure why you are trying to reach this pt? I do not see a msg? Do we need to continue trying to reach her * Telephone Encounter - Primitivo Yusuf MD - 06/14/2019 5:12 PM EST unable to reach patient documented in this encounter Plan of Treatment Not on file documented as of this encounter Visit Diagnoses Not on filedocumented in this encounter Care Teams Salt Miner Relationship Specialty Start Date End Date Luis Gagnon MD PCP - General Internal Medicine 04/29/19 Santos Lubin MD [address] [place] [address] PCP - General Internal Medicine 09/23/20 03/30/21 Santos Lubin MD [address] [place] [address] PCP - General Internal Medicine 03/31/21 05/03/21 [facility], [address] [address] PCP - General Internal Medicine 05/04/21 06/14/21 Santos Lubin MD [address] [place] [address] PCP - General Internal Medicine 06/15/21 11/30/21 Bran Vásquez [address] [place] [address] PCP - General Internal Medicine 12/01/21 08/13/23 Yajaira Bhatia MD [address] [place] [address] PCP - General Internal Medicine 08/14/23 09/18/23 Bran Vásquez [address] [place] [address] PCP - General Internal Medicine 09/19/23 David Vaaldez MD Specialist Cardiology 08/17/20 Madelin Lam, KJ [address] [phone] Cardiology 08/17/20 documented as of this encounter
--- OUTSIDE RECORDS SUMMARY | 2025-05-20 06:22 | XMS_ITS | Encounter Summary ---
Author Organization [facility] Address [address] [place] [address] Care Team Providers Care Ending Machine Operator Name Role Phone David Valadez MD Unavailable [phone] Madelin Lam NP Unavailable [phone] Bran Vásquez Primary Care Provider Yajaira Bhatia MD Primary Care Provider [phone] Bran Vásquez Primary Care Provider [phone] Reason for Visit * Reason Onset Date Comments Remote Device Check 11/18/2022 Encounter Details Date Type Department Care Team Description 11/18/2022 Telephone Cardio PVC POC [address] [address] Nina Cruz MD 300 [facility] [address] [place] [address] Remote Device Check Social History Tobacco Use Types Packs/Day Years [...] suspected to have Coronavirus/COVID-19? No / Unsure 11/14/2022 12:47 PM EDT documented as of this encounter Miscellaneous Notes * Telephone Encounter - Lorena Padron C.M.A. - 11/18/2022 12:51 PM EDT Magnet response on remote device follow-up. Libyan speaking so had on site superintendent call patient. She admits to sleeping with her mobile phone under her pillow. She will stop this and we will seeif this was the cause/ documented in this encounter Plan of Treatment Not on file documented as of this encounter Visit Diagnoses Not on filedocumented in this encounter Care Teams Ending Machine Operator Relationship Specialty Start Date End Date Bran Vásquez [address] [place] [address] PCP - General Internal Medicine 12/01/21 08/13/23 Yajaira Bhatia MD [address] [place] [address] PCP - General Internal Medicine 08/14/23 09/18/23 Bran Vásquez [address] [place] [address] PCP - General Internal Medicine 09/19/23 David Valadez MD Specialist Cardiology 08/17/20 Madelin Lam NP [address] [address] Cardiology 08/17/20 documented as of this encounter
--- OUTSIDE RECORDS SUMMARY | 2025-05-20 06:22 | XMS_ITS | Clinical Summary ---
Author Organization 175 [facility] Address [address] [place] [address] Phone Care Team Providers Care Payroll Professional Name Role Phone Bran Botello MD Primary Care Provider [phone] Allergies Active Allergy Reactions Criticality Noted Date [...] day 200 strip 3 09/25/19 25 Active methocarbamoL (ROBAXIN) 750 mg tablet [...] each day. 30 each 2 02/13/20 25 Active fluticasone propionate (FLONASE) 50 mcg/actuation nasal [...] 10 days for thrush 200 mL 02/13/20 25 Active sucralfate (CARAFATE) 1 gram tablet TAKE 1 TABLET BY MOUTH 3 (THREE) TIMES A DAY 270 tablet 02/26/20 25 Active FeroSuL 325 mg (65 mg iron) tablet TAKE 1 TABLET BY MOUTH ONCE DAILY 90 tablet 03/26/20 25 Active Daily-Anu, with folic acid, 400 mcg tablet TAKE 1 TABLET BY MOUTH ONCE DAILY 90 tablet 03/26/20 25 Active aspirin 81 [...] a day 360 capsule 03/26/20 25 Active calcium carbonate-kay calciferol 500 mg-10 mcg (400 unit) per tablet TAKE 1 TABLET BY MOUTH two (2) times a day 60 tablet 04/30/20 25 Active atorvastatin (LIPITOR) 20 mg tablet TAKE 1 TABLET BY MOUTH ONCE DAILY 30 tablet 04/30/20 25 Active hydrALAZINE (APRESOLINE) 25 mg tabletIndicatio ns:Essential (primary) hypertension TAKE 1 TABLET BY MOUTH two (2) times a day 60 tablet 04/30/20 25 Active senna 8.6 mg tabletIndicatio ns:Constipation , unspecified TAKE 1 TABLET BY MOUTH two (2) times a day NEEDED FOR CONSTIPATION 60 tablet 04/30/20 25 Active acetaminophen (TYLENOL 8 HOUR) 650 mg 8 hr tablet TAKE 1 TABLET BY MOUTH EVERY 8 HOURS NEEDED FOR MILD PAIN. DO NOT CHEW OR CRUSH TABLETS 90 tablet 04/30/20 25 Active calcium carbonate-kay calciferol 500 mg-10 mcg (400 unit) per tablet TAKE 1 TABLET BY MOUTH two (2) times a day 180 tablet 1 10/29/19 25 2024 Discontinued atorvastatin (LIPITOR) 20 mg tablet TAKE 1 TABLET BY MOUTH ONCE DAILY 90 tablet 1 10/31/19 25 2024 Discontinued hydrALAZINE (APRESOLINE) 25 mg tabletIndicatio ns:Essential (primary) hypertension TAKE 1 TABLET BY MOUTH two (2) times a day 180 tablet 1 10/31/19 25 2024 Discontinued senna 8.6 mg tabletIndicatio ns:Constipation , unspecified TAKE 1 TABLET BY MOUTH two (2) times a day NEEDED FOR CONSTIPATION 180 tablet 1 10/31/19 25 2024 Discontinued acetaminophen (TYLENOL 8 HOUR) 650 mg 8 hr tablet Take 1 tablet (650 mg total) by mouth every 8 (eight) hours if needed for mild pain. Do not crush, chew, or split. 90 tablet 03/26/20 25 2024 Discontinued Active Problems Problem Noted Date Diagnosed Date Hypomagnesemia 09/30/2024 Type 2 diabetes mellitus wit h circulatory disorder, without long-term current use of insulin ([facility] V24, [facility] V28) 07/14/2024 Coronary artery disease due to lipid rich plaque 07/14/2024 Chest pain 06/22/2024 Type 2 diabetes mellitus wit h hyperosmolarity without coma, without long-term current use of insulin ([facility] V24, [facility] V28) 05/08/2024 Rotator cuff arthropathy of both [...] disease, stag e 3, mod decreased GFR ([facility] V24, [facility] V28) 10/23/2019 GERD (gastroesophageal reflux disease) 0 [...] joint of left thumb 08/28/2019 Overview (05/08/2024): 08/07/2019/[facility] Osteoarthritis of both knees 08/28/2019 Overview (05/08/2024): Advanced tricompartmental degenerative changes, no fracture or dislocation. Ct left knee, recently done at [facility], seen by orthopedics Dr. 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 06/12/2019 Type 2 diabetes mellitus wit hout complication, without long-term current use of insulin ([facility] V24, [facility] V28) 06/12/2019 Encounters Date Type Department Care Team Description 03/28/2025 Telephone Adult Medicine [address] [address] Bran Botello MD 03/05/2025 3:25 PM EDT Ancillary Procedure [facility] - [facility] [address] [facility] [address] [place] [phone] 03/04/2025 11:00 AM EDT Office Visit [facility] [address] [place] [phone] Tiburcio Simpson PA Acute cystitis without hematuria (Primary Dx) 03/03/2025 Telephone Adult Medicine [address] [phone] Bran Botello MD 02/21/2025 Telephone [facility] - [address] [place] [address] Shellie Guerrero MA from Last 3 Months Immunizations Immunization Administration [...] Date Site/Laterality Comments KNEE ARTHROSCOPY Right PROCEDURE: CA ARTHROSCOPY KNEE DIAGNOSTIC W/WO SYNOVIAL BX SPX; COMMENT: 07/2019 PACEMAKER IMPLANT 2018 PROCEDURE: HISTORICAL PACEMAKER CHOLECYSTECTOMY PROCEDURE: HISTORICAL CHOLECYSTECTOMY CERVICAL BIOPSY W/ LOOP ELECTRODE EXCISION 2009 PROCEDURE: CA CONIZATION CERVIX W/WO D&C RPR ELTRD EXC CERVICAL BIOPSY W/ LOOP ELECTRODE EXCISION 02/25/2014 PROCEDURE: CA CONIZATION CERVIX W/WO D&C RPR ELTRD EXC; [...] of interphalangeal joint of left thumb; COMMENT: 08/07/2019/[facility] Osteoarthritis of both knees 08/28/2019 DX: Osteoarthritis of both knees; COMMENT: Advanced tricompartmental degenerative changes, no fracture or dislocation. Ct left knee, recently done at [facility], seen by orthopedics Dr. joycelyn Avalos Pacemaker 09/17/2019 DX:Pacemaker; CO MMENT: In 11/2018-- ??bradycardia Has upcoming appt in 12/2019 with PVC cardio/ Type 2 diabetes mellitus wit h hyperosmolarity without coma, without long-term current use of insulin ([facility] V24, [facility] V28) 06/12/2019 DX:Type 2 diabetes mellitus with hyperosmolarity without coma, without long-term current use of insulin ([facility]) Type 2 diabetes mellitus wit h renal manifestations ([facility] V24, [facility] V28) 10/23/2019 DX:Type 2 diabetes mellitus [...] Description 06/10/2025 9:55 AM EST Office Visit [facility] - [facility] [address] [facility] [address] [place] [phone] David Valadez MD [address] [place] [address] [place] [phone] 08/21/2025 2:45 PM EST Office Visit Nephrology [address] [address] Desmond Soto MD [address] [facility] [address] [place] [phone] 09/25/2025 3:30 PM EST Ancillary Procedure [facility] [address] [facility] [address] [place] [phone] Health Maintenance Due Date Last Done Comments [...] Screening Completed 05/18/2022 Breast Cancer Screening Discontinued 05/10/20 24, 11/09/2022, 12/02/2020 Pneumococcal Vaccine: 50+ Years Completed [...] this topic Medical Devices Implanted Type Area Renewable Energy Broker Device Identifier Shelf Expiration Date Model / Serial / Lot Lela 2272 Assurity Mri(Tm) [id number] Implanted: by David Valadez MD (Quantity not on file) Cardiac Pacemaker Left: Chest [facility] [employer] 2272 ASSURITY MRI(TM) / [id number] / Abbt-Stju Assurity Mri [id number] Implanted: (Quantity not on file) Cardiac Pacemaker [facility] [employer] ASS[employer] MRI 2272 / [id number] / Procedures Procedure Name Priority Date/Time Associated [...] 3:22 PM EDT) Date Time Interrogation Session [id number] CV DEVICE CHECK Type Interrogation Session Remote Scheduled CV DEVICE CHECK Implantable Pulse Generator [employer] CV DEVICE CHECK Implantable Pulse Generator Type IPG CV DEVICE CHECK Implantable Pulse Generator Model 2272 Assurity MRI(TM) CV DEVICE CHECK Implantable Pulse Generator Serial Number [id number] CV DEVICE CHECK Implantable Pulse Generator Implant Date [id number] CV DEVICE CHECK Battery Remaining Percentage 40.00 CV DEVICE CHECK Battery Remaining Longevity 46.0 CV DEVICE CHECK Battery Voltage 2.960 CV D EVICE CHECK Battery AIRPLANE COVER MAKER Trigger 2.600 CV DEVICE CHECK Battery Status Middle of Service CV DEVICE CHECK [place]lin Statistic RA Percent Paced 39.00 CV DEVICE CHECK [place]lin Statistic RV Percent Paced 99.00 CV DEVICE CHECK Atrial Tachy Statistic AT/AF [place] Percent 0.00 CV DEVICE CHECK Lead Channel [...] Non-Auto W/O Micro (03/04/2025 2:19 PM EDT) Pathologist [facility] GLUCOSE POC Negative Negative, Trace mg/dL Leukocytes UA POC 2+(A) Negative mg/dL Nitrite UA POC Negative Urobilinogen UA POC 0.2 E.U./dL mg/dL Protein UA POC Positive Positive, Negative PH UA POC 5.0 LAURA/HM UA POC Trace(A) Negative Specific Lewis UA POC 1.015 Ketones UA POC Negative Negative Bilirubin UA POC Negative Negative Urine Urine specimen obtained by clean catch procedure / Unknown 03/04/2025 2:19 PM EDT Tiburcio PARDO POINT OF CARE TEST ENTER/E DIT ORDERABLES Final Result * Culture urine (03/04/2025 1:28 PM EDT) [facility] Culture, Urine <10,000 cfu/ml, insignificant count, no further workup. 03/05/2025 2:41 PM EDT [facility] Urine Urine specimen obtained by clean catch procedure / Unknown Non-blood Collection / Unknown 03/04/2025 1:28 PM EDT 03/04/2025 1:28 PM EDT Tiburcio PARDO LAB MICROBIOLOGY - GENERAL ORDERABLES Final Result [facility] [address] [place] [address], * (ABNORMAL) Comprehensive metabolic panel (12/26/2024 11:56 AM EDT) [facility] Sodium 131(L) 133 - 145 mmol/L LAB CHEMISTRY METHOD 12/26/2024 12:37 PM [facility] Potassium 4.6 3.5 - 5.5 mmol/L LAB CHEMISTRY METHOD 12/26/2024 12:37 PM [facility] Chloride 101 96 - 110 mmol/L LAB CHEMISTRY METHOD 12/26/2024 12:37 PM [facility] CO2 23 21 - 32 mmol/L LAB CHEMISTRY METHOD 12/26/2024 12:37 PM [facility] Anion Gap 7 3 - 11 LAB CHEMISTRY METHOD 12/26/2024 12:37 PM [facility] Glucose 147(H) 70 - 100 mg/dL LAB CHEMISTRY METHOD 12/26/2024 12:37 PM [facility] BUN 16 5 - 25 mg/dL LAB CHEMISTRY METHOD 12/26/2024 12:37 PM [facility] Creatinine 0.68 0.50 - 1.10 mg/dL LAB CHEMISTRY METHOD 12/26/2024 12:37 PM [facility] eGFR 91 >=60 mL/min/1. 73m2 LAB CHEMISTRY METHOD 12/26/2024 12:37 PM [facility] Comment:Calculation based on the Chronic Kidney Disease Epidemiology Collaboration (CKD-EPI) equation refit without adjustment for race. BUN/Creatinine Ratio 23.5 LAB CHEMISTRY METHOD 12/26/2024 12:37 PM [facility] Calcium 9.2 8.5 - 10.5 mg/dL LAB CHEMISTRY METHOD 12/26/2024 12:37 PM [facility] AST (SGOT) 18 10 - 42 unit/L LAB CHEMISTRY METHOD 12/26/2024 12:37 PM [facility] ALT (SGPT) 20 10 - 60 unit/L LAB CHEMISTRY METHOD 12/26/2024 12:37 PM [facility] Alkaline Phosphatase 108 42 - 121 unit/L LAB CHEMISTRY METHOD 12/26/2024 12:37 PM EDT [facility] Total Protein 6.6 6.0 - 8.0 g/dL LAB CHEMISTRY METHOD 12/26/2024 12:37 PM EDT [facility] Albumin 3.5 3.2 - 5.0 g/dL LAB CHEMISTRY METHOD 12/26/2024 12:37 PM EDT [facility] Total Bilirubin 0.4 0.0 - 1.4 mg/dL LAB CHEMISTRY METHOD 12/26/2024 12:37 PM EDT [facility] Blood Venous blood specimen / Unknown Venipuncture / Unknown 12/26/2024 11:56 AM EDT 12/26/2024 12:11 PM EDT Sharad Mcdaniel DO LAB BLOOD ORDERABLES Final Result Performing Organization Address City/State/[facility] Co de Phone Number [facility] [address] [place] [address], * (ABNORMAL) Microalbumin creatinine urine ratio (12/19/2024 12:05 PM EDT) Creatinine, Urine 67.0 mg/dL LAB CHEMISTRY METHOD 12/19/2024 5:44 PM EDT [facility] Microalb, Ur 36.8(H) 0.0 - 29.0 mg/L LAB CHEMISTRY METHOD 12/19/2024 5:44 PM EDT [facility] Microalb/Crea t Ratio 55(H) <30 mg/g creat LAB CHEMISTRY METHOD 12/19/2024 5:44 PM EDT [facility] Urine Urine specimen obtained by clean catch procedure / Unknown Non-blood Collection / Unknown 12/19/2024 12:05 PM EDT 12/19/2024 12:05 PM EDT Trudi PARDO LAB URINE ORDERABLES Fin al Result Performing Organization Address City/[facility]/ZIP Co de Phone Number [facility] [address] [place] [address], * Hemoglobin A1c (12/19/2024 12:05 PM EDT) Hemoglobin A1C 5.4 <6.5 % LAB CHEMISTRY METHOD 12/19/2024 4:37 PM EDT [facility] Mean Bld Glu Estim. 108 mg/dL LAB CHEMISTRY METHOD 12/19/2024 4:37 PM EDT [facility] Blood Venous blood specimen / Unknown Venipuncture / Unknown 12/19/2024 12:05 PM EDT 12/19/2024 12:05 PM EDT Trudi Paola [place] LAB BLOOD ORDERABLES Fin al Result Performing Organization Address [facility]/ZIP Co de Phone Number [facility] [address] [place] [address], * FATOU SCREENING DIGITAL (05/10/2024 7:06 AM EDT) Anatomical Region Laterality Modality Mammography 05/09/2024 10:5 1 AM EDT Narrative 05/10/2024 7:06 AM EDT [facility] Diagnostic Imaging Department [address] [place] [address] Patient: NELSY LISA/Age/Sex: 1950 - 73 - F Unit#: [id number] Location/Status: SPDIMAM/REG CLI Mnemonic/Ordering Site: DIGSC/SPMAM Ordering Physician: BRAN BOTELLO MD Fatou Screening Digital - 05/09/24 - 1111 Report Status:Signed EXAM: SCREENING MAMMOGRAPHY, BILATERAL HISTORY: SCREENING. No additional history. COMPARISON: 11/09/2022, 11/27/2020 TECHNIQUE: Synthesized CC and MLO projections of each breast. Tomosynthesis of each breast in the CC and MLO projections. ADDITIONAL IMAGING: None Computer-aided detection was employed with the Timetric 3-D. TISSUE DENSITY: There are scattered areas [...] Procedure Note Josiah Sampson MD - 05/21/2024 [facility] Diagnostic Imaging Department [address] [place] [address] Patient: NELSY LISA./Age/Sex: 1950 - 73 - F Unit#: [id number] Location/Status: SPDIMAM/REG CLI Mnemonic/Ordering Site: [facility] Ordering Physician: BRAN BOTELLO MD Fatou Screening Digital - 05/09/24 - 1111 Report Status:Signed EXAM: SCREENING MAMMOGRAPHY, BILATERAL HISTORY: SCREENING. No additional history. COMPARISON: 11/09/2022, 11/27/2020 TECHNIQUE: Synthesized CC and MLO projections of each breast.Tomosynthesis of each breast in the CC and MLO projections. ADDITIONAL IMAGING: None Computer-aided detection was employed with the iCAD nCino AI 3-D. TISSUE DENSITY: There are scattered [...] Final Res ult * Lipid panel (11/29/2023) LDL/HDL Ratio 3 0 - 4 Triglycerides 138 0 - 150 mg/dL Cholesterol 143 0 - 200 mg/dL HDL 53 >=40 mg/dL LDL Cholesterol 63 0 - 100 mg/dL Blood Venous blood specimen / Unknown Result [facility] Provider LAB BLOOD ORDERABLES Danya l Result * Falls Risk Assessment (05/16/2023) [facility] Falls Risk Assessment abstracted Result [facility] Provider HEALTH MAINTENANCE Final Result * Depression Screening (05/16/2023) [facility] Depression Screening abstracted Result [facility] HEALTH MAINTENANCE Final Result * Diabetes Foot Exam (05/16/2023) [facility] Diabetes: Annual Foot Exam abstracted Result [facility] Provider HEALTH MAINTENANCE Final Result * Hepatitis C Screening (05/18/2022) [facility] Hepatitis C Screening abstracted Result [facility] HEALTH MAINTENANCE Final Result * DXA [...] (World Health Organization Fracture Risk Assessment) [facility] of [facility] recommends using [...] (World Health Organization Fracture Risk Assessment) [facility] of Internal Medicine recommendsusing National [...] Most Recently Relevant to Health Maintenance Insurance [facility] MEDICARE Member Subscriber Plan / Payer (Ef fective 2022-Present) Name:Nelsy Lisa Relation to Subscriber:Self Name:Nelsy Lisa Payer ID:[id number] Group ID:[id number] Type:Not on file Address: [facility] [address] [phone] Advance Directives Documents on File Type Date Recorded 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 Care Teams Payroll Professional Relationship Specialty Start Date End Date Bran Botello MD [address] [place] [address] PCP - General Internal Medicine 12/01/21
--- OUTSIDE RECORDS SUMMARY | 2025-05-20 06:22 | XMS_ITS | Encounter Summary ---
Author Organization [facility] Address [address] [place] [address] Care Team Providers Care Business Communications Instructor Name Role Phone David Valadez MD Unavailable [phone] Madelin Lam NP Unavailable [phone] Bran Vásquez Primary Care Provider [phone] Yajaira Bhatia MD Primary Care Provider [phone] Bran Vásquez Primary Care Provider [phone] Reason for Visit * Reason Onset Date Comments refill request 06/21/2022 Encounter Details Date Type Department Care Team Description 06/21/2022 Telephone Adult Medicine [address] [phone] Bran Vásquez [address] [place] [id number] refill request Social History Tobacco Use Types Packs/Day Years [...] encounter Miscellaneous Notes * Telephone Encounter - Finesse Walls M.A. - 06/21/2022 1:00 PM EST To preop * Telephone Encounter - Kareen Montelongo - 06/21/2022 12:53 PM EST Date of surgery:08/05/2021 and 08/23/2021 What surgery is patient having (gall bladder, cataract, appendix, etc...)?: Cataract Surgeon's name: Dr. Thor Caal Office phone number of surgeon: [phone] Fax # for surgeons office: [phone] (Required) Where is surgery being performed? [facility] Diagnosis/problem for surgery: Cataract Is an EKG required for the pre-op workup? YES PCP: Bran Vásquez Did you verify that the insurance below is correct? YES Patients insurance: [place] / [place] / Product Type: MED[place]ARE [id number] documented in this encounter Plan of Treatment Not on file documented as of this encounter Visit Diagnoses Not on filedocumented in this encounter Care Teams Business Communications Instructor Relationship Specialty Start Date End Date Bran Vás[address] [place] [address] PCP - General Internal Medicine 12/01/21 08/13/23 Yajaira Bhatia MD [address] [place] [address] PCP - General Internal Medicine 08/14/23 09/18/23 Bran [address] [place] [address] PCP - General Internal Medicine 09/19/23 David Valadez MD Specialist Cardiology 08/17/20 Madelin Lam NP [address] [place] [address] Cardiology 08/17/20 documented as of this encounter
--- OUTSIDE RECORDS SUMMARY | 2025-05-20 06:22 | XMS_ITS | Encounter Summary ---
Author Organization [facility] Address [address] [place] [address] Care Team Providers Care Supervisor Telephone Answering Service Name Role Phone Luis Gagnon MD Primary Care Provide r Unavailable David Valadez MD Unavailable [phone] Madelin Lam NP Unavailable [phone] Santos Lubin MD Primary Care Provider [phone] Santos Lubin MD Primary Care Provider [facility] Primary Care Provider Unavailabl e Santos Lubin MD Primary Care Provider [phone] Bran Vásquez Primary Care Provider Yajaira Bhatia MD Primary Care Provider Bran Vásquez Primary Care Provider Encounter Details Date Type Department Care Team Description 08/09/2019 Hospital Medical Records [address] [place] [address] Lien Ann PA-C Social History Tobacco Use Types Packs/Day [...] on filedocumented in this encounter Care Teams Supervisor Telephone Answering Service Relationship Specialty Start Date End Date Luis Gagnon MD PCP - General Internal Medicine 04/29/19 Santos Lubin MD [address] [place] [address] PCP - General Internal Medicine 09/23/20 03/30/21 Santos Lubin MD [address] [place] [address] PCP - General Internal Medicine 03/31/21 05/03/[address] [address] PCP - General Internal Medicine 05/04/21 06/14/21 Santos Lubin MD [address] [place] [address] PCP - General Internal Medicine 06/15/21 11/30/21 Bran Vásquez [address] [place] [address] PCP - General Internal Medicine 12/01/21 08/13/23 Yajaira Bhaita MD [address] [place] [address] PCP - General Internal Medicine 08/14/23 09/18/23 Bran Vásquez [address] [place] [address] PCP - General Internal Medicine 09/19/23 David Valadez MD Specialist Cardiology 08/17/20 Madelin Lam, JK [address] [phone] Cardiology 08/17/20 documented as of this encounter
--- OUTSIDE RECORDS SUMMARY | 2025-05-20 06:22 | XMS_ITS | Encounter Summary ---
Author Organization [facility] Address [address] [place] [address] Care Team Providers Care Ui Software Engineer Name Role Phone Luis Gagnon MD Primary Care Provide r Unavailable David Valadez MD Unavailable [phone] Madelin Lam NP Unavailable [phone] Santos Lubin MD Primary Care Provider [phone] Santos Lubin MD Primary Care Provider [facility] Primary Care Provider [facility] Santos Lubin MD Primary Care Provider [phone] Bran Vásquez Primary Care Provider Yajaira Bhatia MD Primary Care Provider Bran Vásquez Primary Care Provider Encounter Details Date Type Department Care Team Description 08/07/2019 Hospital Medical Records [address] [place] [address] Vanessa Worley PA-C [address] [facility] [address] [place] [phone] Social History Tobacco Use Types Packs/Day Years [...] on filedocumented in this encounter Care Teams Ui Software Engineer Relationship Specialty Start Date End Date Luis Gagnon MD PCP - General Internal Medicine 04/29/19 Santos Lubin MD [address] [place] [address] PCP - General Internal Medicine 09/23/20 03/30/21 Santos Lubin MD [address] [place] [address] PCP - General Internal Medicine 03/31/21 05/03/[address] [address] PCP - General Internal Medicine 05/04/21 06/14/21 Santos Lubin MD [address] [place] [address] PCP - General Internal Medicine 06/15/21 11/30/21 Bran Vásquez [address] [place] [address] PCP - General Internal Medicine 12/01/21 08/13/23 Yajaira Bhatia MD [address] [place] [address] PCP - General Internal Medicine 08/14/23 09/18/23 Bran Vásquez [address] [place] [address] PCP - General Internal Medicine 09/19/23 David Valadez MD Specialist Cardiology 08/17/20 Madelin Lam NP [address] [phone] Cardiology 08/17/20 documented as of this encounter
--- OUTSIDE RECORDS SUMMARY | 2025-05-20 06:22 | XMS_ITS | Encounter Summary ---
Author Organization [facility] Address [address] [place] [address] Care Team Providers Care Credit And Collection Manager Name Role Phone David Valadez MD Unavailable [phone] Madelin Lam NP Unavailable [phone] Santos Lubin MD Primary Care Provider [phone] [facility], Pcp Primary Care Provider [facility] Santos Lubin MD Primary Care Provider [phone] Bran Vásquez Primary Care Provider Yajaira Bhatia MD Primary Care Provider [phone] Bran Vásquez Primary Care Provider [phone] Reason for Visit * Reason Onset Date Comments Provider Call Back 04/19/2021 Encounter Details Date Type Department Care Team Description 04/19/2021 Telephone Gastroenterology - [place] [address] [facility] [address] [place] [address] Payal Arboleda DScPAS Provider Call Back Social History Tobacco Use Types Packs/Day Years [...] have Coronavirus / COVID-19? No / Unsure 04/19/2021 1:12 PM EDT documented as of this encounter Miscellaneous Notes * Telephone Encounter - Payal Arboleda PA-C - 04/19/2021 11:28 AM EDT Thank you * Telephone Encounter - Yudi Connelly M.A. - 04/19/2021 10:11 AM EDT Spoke with patient, she just wanted to let you know she was in the ER and they did some tests onherand a ct (so the one we have scheduled for he rhas been cancelled). Please review notes and advise.Theyre on your desk for tomorrow. * Telephone Encounter - Aster Velazquez - 04/19/2021 9:27 AM EDT Patient is calling because she went to [facility] on 04/17 and she needs to speak with Thiago. Please call [phone] there was a message from Rika that she was concerned about the patient weight loss. documented in this encounter Plan of Treatment Not on file documented as of this encounter Visit Diagnoses Not on filedocumented in this encounter Care Teams Credit And Collection Manager Relationship Specialty Start Date End Date Santos Lubin MD [address] [place] [address] PCP - General Internal Medicine 03/31/21 05/03/21 [facility], Pcp [address] [place] [address] PCP - General Internal Medicine 05/04/21 06/14/21 Santos Lubin MD [address] [place] [address] PCP - General Internal Medicine 06/15/21 11/30/21 Bran V[address] [place] [address] PCP - General Internal Medicine 12/01/21 08/13/23 Yajaira Bhatia MD [address] [place] [address] PCP - General Internal Medicine 08/14/23 09/18/23 Bran V[address] [place] [address] PCP - General Internal Medicine 09/19/23 David Valadez MD Specialist Cardiology 08/17/20 Madelin Lam NP [address] [place] [phone] Cardiology 08/17/20 documented as of this encounter
--- OUTSIDE RECORDS SUMMARY | 2025-05-20 06:22 | XMS_ITS | Encounter Summary ---
Author Organization [facility] Address [address] [place] [address] Care Team Providers Care Manager Beverage Name Role Phone Luis Gagnon MD Primary Care Provide r Unavailable David Valadez MD Unavailable [phone] Madelin Lam NP Unavailable [phone] Santos Lubin MD Primary Care Provider [phone] Santos Lubin MD Primary Care Provider [facility] Primary Care Provider Unavailabl e Santos Lubin MD Primary Care Provider [phone] Bran Vásquez Primary Care Provider [phone] Yajaira Bhatia MD Primary Care Provider Bran Vásquez Primary Care Provider Encounter Details Date Type Department Care Team Description 12/30/2019 Incoming Correspondence Medical Records [address] [place] [address] [facility] Social History Tobacco Use Types [...] on filedocumented in this encounter Care Teams Manager Beverage Relationship Specialty Start Date End Date Luis Gagnon MD PCP - General Internal Medicine 04/29/19 Santos Lubin MD [address] [place] [address] PCP - General Internal Medicine 09/23/20 03/30/21 Santos Lubin MD [address] [place] [address] PCP - General Internal Medicine 03/31/21 05/03/[address] [address] PCP - General Internal Medicine 05/04/21 06/14/21 Santos Lubin MD [address] [place] [address] PCP - General Internal Medicine 06/15/21 11/30/21 Bran Vásquez [address] [place] [address] PCP - General Internal Medicine 12/01/21 08/13/23 Yajaira Bhatia MD [address] [place] [address] PCP - General Internal Medicine 08/14/23 09/18/23 Bran Vásquez [address] [place] [address] PCP - General Internal Medicine 09/19/23 David Valadez MD Specialist Cardiology 08/17/20 Madelin Lam, CARDIOLOGY RN [address] [address] Cardiology 08/17/20 documented as of this encounter
--- OUTSIDE RECORDS SUMMARY | 2025-05-20 06:22 | XMS_ITS | Encounter Summary ---
Author Organization [facility] Address [address] [place] [address] Care Team Providers Care Billing Customer Service Representative Name Role Phone Luis Gagnon MD Primary Care Provide r Unavailable David Valadez MD Unavailable [phone] Madelin Lam NP Unavailable [phone] Santos Lubin MD Primary Care Provider [phone] Santos Lubin MD Primary Care Provider [facility] Primary Care Provider Unavailabl e Santos Lubin MD Primary Care Provider Bran Vásquez Primary Care Provider Yajaira Bhatia MD Primary Care Provider Bran Vásquez Primary Care Provider [phone] Encounter Details Date Type Department Care Team Description 08/08/2019 [facility] Medical Records [address] [place] [address] Trudi Mancilla Social History Tobacco Use Types Packs/Day Years [...] on filedocumented in this encounter Care Teams Billing Customer Service Representative Relationship Specialty Start Date End Date Luis Gagnon MD PCP - General Internal Medicine 04/29/19 Santos Lubin MD [address] [place] [address] PCP - General Internal Medicine 09/23/20 03/30/21 Santos Lubin MD [address] [place] [address] PCP - General Internal Medicine 03/31/21 05/03/[address] [address] PCP - General Internal Medicine 05/04/21 06/14/21 Santos Lubin MD [address] [place] [address] PCP - General Internal Medicine 06/15/21 11/30/21 Bran Vásquez [address] [place] [address] PCP - General Internal Medicine 12/01/21 08/13/23 Yajaira Bhatia MD [address] [place] [address] PCP - General Internal Medicine 08/14/23 09/18/23 Bran Vásquez [address] [place] [address] PCP - General Internal Medicine 09/19/23 David Valadez MD Specialist Cardiology 08/17/20 Madelin Lam, NURSE LDR [address] [address] Cardiology 08/17/20 documented as of this encounter
--- OUTSIDE RECORDS SUMMARY | 2025-05-20 06:22 | XMS_ITS | Encounter Summary ---
Author Organization [facility] Address [address] [place] [address] Care Team Providers Care Supervisor Tower Name Role Phone Luis Gagnon MD Primary Care Provide r Unavailable David Valadez MD Unavailable [phone] Madelin Lam NP Unavailable [phone] Santos Lubin MD Primary Care Provider [phone] Santos Lubin MD Primary Care Provider [facility] Primary Care Provider Unavailabl e Santos Lubin MD Primary Care Provider [phone] Bran Vásquez Primary Care Provider Yajaira Bhatia MD Primary Care Provider Bran Vásquez Primary Care Provider Encounter Details Date Type Department Care Team Description 06/14/2019 Orders Only Adult Medicine - [place] [address] [place] [address] Primitivo Yusuf MD [address] [place] [address] Social History Tobacco Use Types Packs/Day Years [...] filedocumented in this encounter Care Teams Supervisor Tower Relationship Specialty Start Date End Date Luis Gagnon MD PCP - General Internal Medicine 04/29/19 Santos Lubin MD [address] [place] [address] PCP - General Internal Medicine 09/23/20 03/30/21 Santos Lubin MD [address] [place] [address] PCP - General Internal Medicine 03/31/21 05/03/[address] [address] PCP - General Internal Medicine 05/04/21 06/14/21 Santos Lubin MD [address] [place] [address] PCP - General Internal Medicine 06/15/21 11/30/21 Bran Vásquez [address] [place] [address] PCP - General Internal Medicine 12/01/21 08/13/23 Yajaira Bhatia MD [address] [place] [address] PCP - General Internal Medicine 08/14/23 09/18/23 Bran Vásquez [address] [place] [address] PCP - General Internal Medicine 09/19/23 David Valadez MD Specialist Cardiology 08/17/20 Madelin Lam NP [address] [phone] Cardiology 08/17/20 documented as of this encounter
--- OUTSIDE RECORDS SUMMARY | 2025-05-20 06:22 | XMS_ITS | Clinical Summary ---
Author Organization [facility] Address [address] [place] [address] Care Team Providers Care Candy Vendor Name Role Phone Bran Vásquez MD Primary Care Provider [phone] Allergies Active Allergy Reactions Criticality Noted Date [...] 20 mg by mouth daily. 0 Active [place]-3 1000 MG CAPS Take 1 capsule by [...] dislocation. Ct left knee, recently done at [facility], seen by orthopedics Dr. joycelyn Avalos Social [...] age to complete this topic Care Teams Candy Vendor Relationship Specialty Start Date End Date Bran Vásquez MD [address] [place] [address] PCP - General Hospitalist Medicine 09/30/23
--- OUTSIDE RECORDS SUMMARY | 2025-05-20 06:23 | XMS_ITS | Encounter Summary ---
Author Organization [facility] Address [address] [place] [address] Care Team Providers Care Printing Film Stripper Name Role Phone David Valadez MD Unavailable [phone] Madelin Lam NP Unavailable [phone] Bran Vásquez Primary Care Provider [phone] Reason for Visit * Reason Comments E-prescribe Rx Request Encounter Details Date Type Department Care Team Description 03/24/2025 Refill [facility] [address] [phone] Chava Arias DPM [address] [address] E-prescribe Rx Request Social History Tobacco Use [...] on filedocumented in this encounter Care Teams Printing Film Stripper Relationship Specialty Start Date End Date Bran Vásquez [address] [place] [address] [id number] PCP - General Internal Medicine 09/19/23 David Valadez MD Specialist Cardiology 08/17/20 Madelin Lam NP [address] [place] [phone] Cardiology 08/17/20 documented as of this encounter
--- OUTSIDE RECORDS SUMMARY | 2025-05-20 06:23 | XMS_ITS | Encounter Summary ---
Author Organization [facility] Address [address] [place] [address] Care Team Providers Care Clinical Unit Coordinator Name Role Phone David Valadez MD Unavailable [phone] Madelin Lam NP Unavailable [phone] Bran Vásquez Primary Care Provider [phone] Reason for Visit * Reason Comments E-prescribe Rx Request Encounter Details Date Type Department Care Team Description 04/03/2024 Refill Adult Medicine [address] [address] Bran Vásquez [address] [place] [address] [phone] E-prescribe Rx Request Social History Tobacco Use [...] encounter Miscellaneous Notes * Telephone Encounter - Sarah Hankins M.A. - 04/09/2024 1:43 PM EDT Last office visit 02/20/24 Next office visit 05/17/24 Lab Results Component Value Date CHOL 143 11/29/2023 LDL 63 11/29/2023 HDL 53 11/29/2023 TRIG 138 11/29/2023 SGOT 19 12/27/2022 SGPT 22 12/27/2022 * Telephone Encounter - Twila Bundy - 04/09/2024 7:32 AM EDT Patient would like script to be: E-PRESCRIBED/FAXED TO PHARMACY WHEN WAS THE PATIENT'S LAST APPOINTMENT IN ADULT MEDICINE? 02/20/24 WHEN WAS THE LAST TIME THE PATIENT SAW THEIR PCP? 01/30/24 Does patient have an upcoming appointment? Yes 05/17/24 (THE MEDICATION REQUESTED IS ON THE MED LIST ABOVE) All of the medications requested were on the CURRENT MEDS list Did you check the Pharmacy information above?: YES Patient wants: 90 -day supply Is this a mail order prescription request ? NO If the refill is from a FAXED refill request what is the RX # listed on the fax? N/A Patients current insurance carrier is: Payor: [facility] MCR / Plan: [facility]0 [facility] [id number] / Product Type: HMO [id number]-[id number] documented in this encounter Plan of Treatment Not on file documented as of this encounter Visit Diagnoses Not on filedocumented in this encounter Care Teams Clinical Unit Coordinator Relationship Specialty Start Date End Date Bran Vásquez [address] [place] [address] PCP - General Internal Medicine 09/19/23 David Valadez MD Specialist Cardiology 08/17/20 Madelin Lam NP [address] [address] Cardiology 08/17/20 documented as of this encounter
--- OUTSIDE RECORDS SUMMARY | 2025-05-20 06:23 | XMS_ITS | Encounter Summary ---
Author Organization [facility] Address [address] [place] [address] Care Team Providers Care Head Of Sales And Marketing Name Role Phone David Valadez MD Unavailable [phone] Madelin Lam NP Unavailable [phone] Bran Vásquez Primary Care Provider [phone] Reason for Visit * Reason Comments E-prescribe Rx Request Encounter Details Date Type Department Care Team Description 04/03/2024 Refill Adult Medicine [facility] [address] [place] [address] Trudi Alcaraz, PARigobertoC [address] [place] [address] [phone] E-prescribe Rx Request Social History Tobacco Use [...] Encounter - Sarah Hankins M.A. - 04/09/2024 12:04 PM EDT Last office visit 02/20/24 Next office visit 05/17/24 Are we filling rx's for covid test kits now? * Telephone Encounter - Twila Niharika - 04/09/2024 7:22 AM EDT Patient would like script to [...] N/A Patients current insurance carrier is: Payor: [facility] MCR / Plan: O $0 [facility] [id number] / Product Type: HMO [id number]-Kiapdol documented in this encounter Plan of Treatment Not on file documented as of this encounter Visit Diagnoses Not on filedocumented in this encounter Care Teams Head Of Sales And Marketing Relationship Specialty Start Date End Date Bran Vásquez [address] [place] [address] PCP - General Internal Medicine 09/19/23 David Valadez MD Specialist Cardiology 08/17/20 Madelin Lam NP [address] [place] [phone] Cardiology 08/17/20 documented as of this encounter
== END 2025-05-20 06:19 | disposition home or self-care (01) ==
LOC: CF 06:18
PROVIDERS: Visit Provider Anesthesiology
DX: M17.0 Bilateral primary osteoarthritis of knee (principal)
CPT/HCPCS: 64624; J2003; J2795; J3301

== ENCOUNTER 2025-05-20 10:09 | Outpatient (AMB) | payer OTHER, SELFPAY ==
[2025-05-20 10:12] VITALS: BP 155/67; PULSE 61; RESP 16; O2SAT 99; BMI 26.4
--- NOTE | 2025-05-20 10:12 | A.OFFVIS_ITS ---
Vital Signs 05/20/25 10:12 05/20/25 11:25 Height 4 ft 9 in Weight 122 lb BMI 26.4 BP 155/67 H 145/66 H Blood Pressure Location Rt brachial Lt brachial Position Sitting Sitting Respiration 16 16 Pulse 61 61 Pulse Source Pulse Oximeter Pulse Oximeter Pulse Oximetry (%) 99 97 Oxygen Delivery Method Room Air Room Air Intake Visit Reasons: Left geniculate nerve RFA Allergies hydrochlorothiazide Allergy (Unknown, Verified 04/24/25 10:44) Rash tramadol Allergy (Unknown, Verified 04/24/25 10:44) tachycardia Physical Exam Vital Signs: Last Vital Signs Pulse 61 05/20/25 11:25 Resp 16 05/20/25 11:25 BP 145/66 H 05/20/25 11:25 Pulse Ox 97 05/20/25 11:25 Oxygen Delivery Method Room Air 05/20/25 11:25 BMI result Body Mass Index 26.4 Assessment & Plan Assessment & Plan (1) Osteoarthritis of knees, bilateral: Code(s): M17.0 - Bilateral primary osteoarthritis of knee Category: Medical (2) Bilateral knee pain: Code(s): M25.561 - Pain in right knee; M25.562 - Pain in left knee Category: Medical Plan Radiofrequency ablation of the left genicular nerve block. ?Informed consent was explained to the patient. All questions were explained and answered. The patient was taken inside the operating room. The patient was positioned supine on operating table with her?left leg elevated on a gel bin. ?Time-out was performed delineating correct site, side, the nature of the procedure, patient's allergy, preoperative antibiotic if needed. All operating room staff was participating in OR time-out procedure. C-arm was brought over the operating field and picture of the?left knee was demonstrated on the screen. Anterolateral and anteromedial surfaces of the knee were prepped with chloroprep and draped with utility towels. The point of interest were delineated for: 1.superior lateral genicular nerve as the confluence of the metaphysis of the? femur with corresponding diaphysis on the lateral silhouette of the femur distal bone, 2.superior medial genicular nerve (suprapatelar saphenous nerve) the point of interest was delineated as the confluence of the silhouette of metaphysis of the femur with corresponding diaphysis on the medial silhouette on the femoral distal bone. 3.inferior medial genicular nerve (infra patellar saphenous nerve) the point of interest was delineated as the confluence of metaphysis of the proximal tibia on the medial side with corresponding diaphysis of the same bone. ?The projections of the points of interest on anterior surface of the left knee was injected with small amount of lidocaine 2% 1-to 2 ml. After that 3 50 mm radiofrequency cannulas were driven to? the point of interest in tunnel vision fashion. When needles gently contacted the bones the position of the C-arm was switched to the lateral view, care was taken to superimpose the the femoral condiles one over the other. The position of the needles were adjusted to assure that the tip of the canulas are located at the mid shaft of each of the above described bones. ?After that small amount of ropivacaine? 0.5%?1.5 mL mixed with Kenalog trace amount was injected into each needle. 60 seconds later energy was applied for 3 minutes 26 seconds with temperature of 56 degrees centigrade. Upon completion of the injection the needles were withdrawn, The patient tolerated procedure well she was taken outside of the operating room to recovery room where she recovered uneventfully Orders: Orders FL guidance in treatment room Today M25.561 - Pain in right knee, M25.562 - Pa in in left knee Medications: New diazepam (Valium) please take 30minutes prior to arrival for procedure 5 mg PO ONCE PRN 1 tab 0RF sleep oxycodone take 30 minutes prior to arrival for procedure 10 mg PO ONCE PRN 1 tab 0RF pain Coding Level of Care Code Procedure Only Diagnoses Osteoarthritis of knees, bilateral M17.0 Bilateral knee pain M25.561; M25.562
[2025-05-20 11:25] VITALS: BP 145/66; PULSE 61; RESP 16; O2SAT 97
== END 2025-05-20 11:25 | disposition home or self-care (01) ==
LOC: HO.PMCPRC 10:09
PROVIDERS: PCP Internal Medicine; Visit Provider Anesthesiology
DX: M17.0 Bilateral primary osteoarthritis of knee (principal); M25.561 Pain in right knee; M25.562 Pain in left knee
CPT/HCPCS: 64624

== ENCOUNTER 2025-05-27 06:20 | Outpatient (REF) | payer OTHER, SELFPAY ==
--- NOTE | ~2025-05-27 | FL_ITS ---
EXAMINATION: FL GUIDANCE ONLY HISTORY: M25.561 - Pain in right knee COMPARISON: None available. TECHNIQUE: Fluoroscopy time: 34 seconds. Cumulative Dose: 3.90 mGy. DAP: 809.40 mGycm2 Images: 2. FINDINGS: Fluoroscopic spot films of the right knee demonstrate needles adjacent to the distal femur and proximal tibia. FL/FL guidance in treatment room IMPRESSION: Fluoroscopy during procedure. Please see procedure report for additional information. Electronically signed by: Rico Lombardo MD 05/27/2025 03:36 PM CODY
--- OUTSIDE RECORDS SUMMARY | 2025-05-27 06:27 | XMS_ITS | Clinical Summary ---
Author Organization [facility] Address [address] [place] [address] Care Team Providers Care Regrinder Operator Name Role Phone Bran Vásquez MD Primary Care Provider [phone] Allergies Active Allergy Reactions Criticality Noted Date [...] 20 mg by mouth daily. 0 Active [place]-3 1000 MG CAPS Take 1 capsule by [...] dislocation. Ct left knee, recently done at [facility], seen by orthopedics Dr. joycelyn [...] age to complete this topic Care Teams Regrinder Operator Relationship Specialty Start Date End Date Bran Vásquez MD [address] [place] [address] PCP - General Hospitalist Medicine 09/30/23
--- OUTSIDE RECORDS SUMMARY | 2025-05-27 06:27 | XMS_ITS | Clinical Summary ---
Author Organization [address] [facility] Address [address] [place] [address] Phone Care Team Providers Care Camp Dining Room Attendant Name Role Phone Bran Botello MD Primary [...] disorder, without long-term current use of insulin ([facility] V24, [facility] V28) 07/14/2024 Coronary artery disease due to lipid rich plaque 07/14/2024 Chest pain 06/22/2024 Type 2 diabetes mellitus wit h hyperosmolarity without coma, without long-term current use of insulin ([facility] V24, [facility] V28) 05/08/2024 Rotator cuff arthropathy of both [...] disease, stag e 3, mod decreased GFR ([facility] V24, [facility] V28) 10/23/2019 GERD (gastroesophageal reflux disease) 0 [...] joint of left thumb 08/28/2019 Overview (05/08/2024): 08/07/2019/[facility] Osteoarthritis of both knees 08/28/2019 Overview (05/08/2024): Advanced tricompartmental degenerative changes, no fracture or dislocation. Ct left knee, recently done at [facility], seen by orthopedics Dr. 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 - [facility] [address] [facility] [address] [place] [phone] 03/04/2025 11:00 AM EDT Office Visit [facility] [address] [place] [phone] Tiburcio Simpson PA Acute cystitis without hematuria (Primary Dx) 03/03/2025 Telephone Adult Medicine [address] [phone] Bran Botello MD from Last 3 Months Immunizations Immunization Administration [...] Date Site/Laterality Comments KNEE ARTHROSCOPY Right PROCEDURE: [place] ARTHROSCOPY KNEE DIAGNOSTIC W/WO SYNOVIAL BX SPX; COMMENT: 07/2019 PACEMAKER IMPLANT 2018 PROCEDURE: HISTORICAL PACEMAKER CHOLECYSTECTOMY PROCEDURE: HISTORICAL CHOLECYSTECTOMY CERVICAL BIOPSY W/ LOOP ELECTRODE EXCISION 2009 PROCEDURE: W[place] CONIZATION CERVIX W/WO D&C RPR ELTRD EXC CERVICAL BIOPSY W/ LOOP ELECTRODE EXCISION 02/25/2014 PROCEDURE: [place] CONIZATION CERVIX W/WO D&C RPR ELTRD EXC; [...] of interphalangeal joint of left thumb; COMMENT: 08/07/2019/[place] Osteoarthritis of both knees 08/28/2019 DX: Osteoarthritis of both knees; COMMENT: Advanced tricompartmental degenerative changes, no fracture or dislocation. Ct left knee, recently done at [facility], seen by orthopedics Dr. joycelyn Avalos Pacemaker 09/17/2019 DX:Pacemaker; CO MMENT: In 11/2018-- ??bradycardia Has upcoming appt in 12/2019 with PVC cardio/ Type 2 diabetes mellitus wit h hyperosmolarity without coma, without long-term current use of insulin ([facility] V24, [facility] V28) 06/12/2019 DX:Type 2 diabetes mellitus with hyperosmolarity without coma, without long-term current use of insulin ([facility]) Type 2 diabetes mellitus wit h renal manifestations ([facility] V24, [facility] V28) 10/23/2019 DX:Type 2 diabetes mellitus with renal manifestations ([facility]) Abnormal Pap smear of cervix 12/10/2019 DX: [...] Description 06/10/2025 9:55 AM EST Office Visit [facility] - [facility] [address] [facility] [address] [place] [phone] David Valadez MD [address] [place] [address] [address] [place] [phone] 08/21/2025 2:45 PM EST Office Visit Nephrology - [address] [phone] Desmond Soto MD [address] [facility] [address] [place] [phone] 09/25/2025 3:30 PM EST Ancillary Procedure [facility] - [address] [facility] [address] [place] [address] Health Maintenance Due Date Last [...] this topic Medical Devices Implanted Type Area Thermograph Operator Device Identifier Shelf Expiration Date Model / Serial / Lot Abbt-Stju 2272 Assurity Mri(Tm) [id number] Implanted: by David Valadez MD (Quantity not on file) Cardiac Pacemaker Left: Chest [facility] 2272 ASSURITY MRI(TM) / [id number] / Abbt-Stju Assurity Mri [id number] Implanted: (Quantity not on file) Cardiac Pacemaker [facility] [employer] MRI 2272 / [id number] / Procedures Procedure Name Priority Date/Time Associated [...] long-term current use of insulin (CMS/HCC V24, CMS/[facility] V28) Primary hypertension CKD (chronic kidney [...] 3:22 PM EDT) Date Time Interrogation Session [id number] CV DEVICE CHECK Type Interrogation Session Remote Scheduled CV DEVICE CHECK Implantable Pulse Generator Thermograph Operator [employer] CV DEVICE CHECK Implantable Pulse Generator Type IPG CV DEVICE CHECK Implantable Pulse Generator Model 2272 Assurity MRI(TM) CV DEVICE CHECK Implantable Pulse Generator Serial Number [id number] CV DEVICE CHECK Implantable Pulse Generator Implant Date [id number] CV DEVICE CHECK Battery Remaining Percentage 40.00 CV DEVICE CHECK Battery Remaining Longevity 46.0 CV DEVICE CHECK Battery Voltage 2.960 CV D EVICE CHECK Battery [employer] MANAGER Trigger 2.600 CV DEVICE CHECK Battery Status Middle of Service CV DEVICE CHECK [place] Statistic RA Percent Paced 39.00 CV DEVICE CHECK [place]lin Statistic RV Percent Paced 99.00 CV DEVICE CHECK Atrial Tachy Statistic AT/AF [place] Percent 0.00 CV DEVICE CHECK Lead Channel [...] Non-Auto W/O Micro (03/04/2025 2:19 PM EDT) [facility] GLUCOSE POC Negative Negative, Trace mg/dL Leukocytes UA POC 2+(A) Negative mg/dL Nitrite UA POC Negative Urobilinogen UA POC 0.2 E.U./dL mg/dL Protein UA POC Positive Positive, Negative PH UA POC 5.0 LAURA/HM UA POC Trace(A) Negative Specific [place] UA POC 1.015 Ketones UA POC Negative Negative Bilirubin UA POC Negative Negative Urine Urine specimen obtained by clean catch procedure / Unknown 03/04/2025 2:19 PM EDT Tiburcio PARDO POINT OF CARE TEST ENTER/E DIT ORDERABLES Final Result * Culture urine (03/04/2025 1:28 PM EDT) [facility] Culture, Urine <10,000 cfu/ml, insignificant count, no further workup. 03/05/2025 2:41 PM EDT [facility] Urine Urine specimen obtained by clean catch procedure / Unknown Non-blood Collection / Unknown 03/04/2025 1:28 PM EDT 03/04/2025 1:28 PM EDT Tiburcio PARDO LAB MICROBIOLOGY - GENERAL ORDERABLES Final Result [facility] [address] [place] [address], [place] [phone] * (ABNORMAL) Comprehensive metabolic panel (12/26/2024 11:56 AM EDT) [facility] Sodium 131(L) 133 - 145 mmol/L LAB CHEMISTRY METHOD 12/26/2024 12:37 PM EDT [facility] Potassium 4.6 3.5 - 5.5 mmol/L LAB CHEMISTRY METHOD 12/26/2024 12:37 PM [facility] Chloride 101 96 - 110 mmol/L LAB CHEMISTRY METHOD 12/26/2024 12:37 PM [facility] CO2 23 21 - 32 mmol/L LAB CHEMISTRY METHOD 12/26/2024 12:37 PM [facility] Anion Gap 7 3 - 11 LAB CHEMISTRY METHOD 12/26/2024 12:37 PM [facility] Glucose 147(H) 70 - 100 mg/dL LAB CHEMISTRY METHOD 12/26/2024 12:37 PM [facility] BUN 16 5 - 25 mg/dL LAB CHEMISTRY METHOD 12/26/2024 12:37 PM [facility] Creatinine 0.68 0.50 - 1.10 mg/dL LAB CHEMISTRY METHOD 12/26/2024 12:37 PM [facility] eGFR 91 >=60 mL/min/1. 73m2 LAB CHEMISTRY METHOD 12/26/2024 12:37 PM [facility] Comment:Calculation based on the Chronic Kidney Disease Epidemiology Collaboration (CKD-EPI) equation refit without adjustment for race. BUN/Creatinine Ratio 23.5 LAB CHEMISTRY METHOD 12/26/2024 12:37 PM [facility] Calcium 9.2 8.5 - 10.5 mg/dL LAB CHEMISTRY METHOD 12/26/2024 12:37 PM [facility] AST (SGOT) 18 10 - 42 unit/L LAB CHEMISTRY METHOD 12/26/2024 12:37 PM [facility] ALT (SGPT) 20 10 - 60 unit/L LAB CHEMISTRY METHOD 12/26/2024 12:37 PM [facility] Alkaline Phosphatase 108 42 - 121 unit/L LAB CHEMISTRY METHOD 12/26/2024 12:37 PM [facility] Total Protein 6.6 6.0 - 8.0 g/dL LAB CHEMISTRY METHOD 12/26/2024 12:37 PM EDT [facility] Albumin 3.5 3.2 - 5.0 g/dL LAB CHEMISTRY METHOD 12/26/2024 12:37 PM EDT [facility] Total Bilirubin 0.4 0.0 - 1.4 mg/dL LAB CHEMISTRY METHOD 12/26/2024 12:37 PM EDT [facility] Blood Venous blood specimen / Unknown Venipuncture / Unknown 12/26/2024 11:56 AM EDT 12/26/2024 12:11 PM EDT Sharad Mcdaniel DO LAB BLOOD ORDERABLES Final Result [facility] [address] [place] [address], [place] [phone] * (ABNORMAL) Microalbumin creatinine urine ratio (12/19/2024 [...] ORDERABLES Fin al Result Performing Organization Address City/[facility]/ZIP Co de Phone Number [facility] [address] [place] [address], [place] [phone] * Hemoglobin A1c (12/19/2024 12:05 PM EDT) [...] PARDO LAB BLOOD ORDERABLES Fin al Result [facility] [address] [place] [address], * FATOU SCREENING DIGITAL (05/10/2024 7:06 AM EDT) Anatomical Region Laterality Modality Mammography 05/09/2024 10:5 1 AM EDT Narrative 05/10/2024 7:06 AM EDT [facility] Diagnostic Imaging Department [address] [place] [address] Patient: NLESY LISA./Age/Sex: 1950 - 73 - F Unit#: [id number] Location/Status: SPDIMAM/REG CLI Mnem[facility] Physician: BRAN BOTELLO MD Fatou Screening Digital - 05/09/24 - 1111 Report Status:Signed EXAM: SCREENING MAMMOGRAPHY, BILATERAL HISTORY: SCREENING. No additional history. COMPARISON: 11/09/2022, 11/27/2020 TECHNIQUE: Synthesized CC and MLO projections of each breast. Tomosynthesis of each breast in the CC and MLO projections. ADDITIONAL IMAGING: None Computer-aided detection was employed with the [employer]dy[employer]ounce[employer] Hitlantis AI 3-D. TISSUE DENSITY: There are scattered [...] Procedure Note Josiah Sampson MD - 05/21/2024 [facility] Diagnostic Imaging Department [address] [place] [id number] Patient: NELSY LISA /Age/Sex: 1950 - 73 - F Unit#: [id number] Location/Status: [facility] CLI Mnemonic/Ordering Site: [facility] Ordering Physician: BRAN BOTELLO MD Fatou Screening Digital - 05/09/24 - 1111 Report Status:Signed EXAM: SCREENING MAMMOGRAPHY, BILATERAL HISTORY: SCREENING. No additional history. COMPARISON: 11/09/2022, 11/27/2020 TECHNIQUE: Synthesized CC and MLO projections of each breast.Tomosynthesis of each breast in the CC and MLO projections. ADDITIONAL IMAGING: None Computer-aided detection was employed with the AgentPiggy AI 3-D. TISSUE DENSITY: There are scattered [...] MD Dic Date/Time: 05/10/24701 Sign date/Time: 05/10/24705 Bran Botello MD IMG BI PROCEDURES Final Res ult * Lipid panel (11/29/2023) LDL/HDL Ratio 3 0 - 4 Triglycerides 138 0 - 150 mg/dL Cholesterol 143 0 - 200 mg/dL HDL 53 >=40 mg/dL LDL Cholesterol 63 0 - 100 mg/dL Blood Venous blood specimen / Unknown Historical Provider LAB BLOOD ORDERABLES Danya l Result * Hm [place] Risk Assessment (05/16/2023) Falls Risk Assessment abstracted [facility] Provider [place] HEALTH MAINTENANCE Final Result * Depression Screening (05/16/2023) [facility] Depression Screening abstracted Result [facility] HEALTH MAINTENANCE Final Result * Diabetes Foot Exam (05/16/2023) [facility] Diabetes: Annual Foot Exam abstracted Result [facility] HEALTH MAINTENANCE Final Result * Hepatitis C Screening (05/18/2022) [facility] Hepatitis C Screening abstracted Result [facility] HEALTH MAINTENANCE Final Result * DXA BONE [...] (World Health Organization Fracture Risk Assessment) [facility] Department of Internal Medicine recommends [...] (World Health Organization Fracture Risk Assessment) [facility] Department of Internal Medicine recommendsusing [...] Most Recently Relevant to Health Maintenance Insurance [facility] MEDIC[facility] Member Subscriber Plan / Payer (Ef fective 2022-Present) Name:Nehal Lisally Relation to Subscriber:Self Name:Lisa, Nelsy Payer ID:[id number] Group ID:[id number] Type:Not on file Address: [place] [address] [place] [phone] Advance Directives Documents on File Type Date Recorded 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 Care Teams Camp Dining Room Attendant Relationship Specialty Start Date End Date Bran Botello MD [address] [place] [address] PCP - General Internal Medicine 12/01/21
--- OUTSIDE RECORDS SUMMARY | 2025-05-27 06:27 | XMS_ITS | Data Portability ---
Author Organization [employer] [facility], [facility] Address [address] [place] [address] Care Team Providers Care Materials Mgmt Tech Name Role Phone HIM CCA OTHER Assessment [...] any twisting will aggravate the pain. VSS. Control Board Operator on site reports no reproducible abdominal pain, [...] in the field was performed by my circuit court clerk colleague, as noted above, I provided real-time [...] Assessment and Plan as documented by the Control Board Operator. Patient given the opportunity to ask questions. [...] shortness of breath and denies GROSS. Per circuit court clerk on the scene, vital signs are stable [...] cmp, whole blood + renay [email or web address], [address] 4 16:57:24 hemoglobin + hematocrit, blood [address], [address] 4 16:57:23 culture, urine 2022 023 [facility]ACA [facility] (Centralized Electronic Ordering - All Locations), Patient Can Go To The Location Of Their Choice, [id number] 14:44:21 Referral None recorded. Procedures None recorded. Surgeries None recorded. Imaging electrocard iogram 2023 024 [email or web address] [facility], [address] [place] [address], [id number] 14:52:21 Medication Orders Voltaren 1 % topical gel 2022 023 [facility] [place], [place] - [id number], [address] [place] [address], [address], 16:53:28 Patient TargetsNo targets recorded. Patient InstructionsNo instructions recorded. Reason for Referral None Reported. Results Created Date Observation Date Name Description Value Unit Range Abnormal Flag Note LastModifiedBy Organization Detail LastModifiedTime 05/29/2005/29/2023 URINE CULTU RE specimen description URINE Not Available [facility] (Centralized [facility] Ordering - All Locations) Patient Can Go To The Location Of Their Choice, [id number] 05/30/2023 14:44:21 05/29/2005/29/2023 URINE CULTU RE special requests NONE Not Available [facility] (Centralized Electronic Ordering - All Locations) Patient Can Go To The Location Of Their Choice, [id number] 05/30/2023 14:44:21 05/29/20 23 05/30/2023 URINE CULTU RE culture <10,00 0 COL/ML abnormal Not Available [facility] (Centralized Electronic Ordering - All Locations) Patient Can Go To The Location Of Their Choice, [id number] 05/30/2023 14:44:21 05/29/20 23 05/30/2023 URINE CULTU RE report status FINAL 2022 Not Available [facility] (Centralized Electronic Ordering - All Locations) Patient Can Go To The Location Of Their Choice, [id number] 05/30/2023 14:44:21 11/25/19 24 11/25/2023 hemog lobin + hemat ocrit , blood Hemoglobin 15.[address] [facility] - [address], [address] [place] [address] 11/25/2023 16:53:14 11/25/19 24 11/25/2023 cmp, whole blood + picco lo CRE 0.5 Not Available [facility] [address], [address] [place] [address] 11/25/2023 16:52:56 11/25/19 24 11/25/2023 cmp, whole blood + picco lo GLU 130 Not Available [facility] [address], [address] [place] [address] 11/25/2023 16:52:56 11/25/19 24 11/25/2023 cmp, whole blood + picco lo K+ 4.4 Not Available [facility] [address], [address] 11/25/2023 16:52:56 11/25/19 24 11/25/2023 cmp, whole blood + picco lo Na+ 129 Not Available [facility] - [facility] [address], [address] 11/25/2023 16:52:56 04/22/20 24 04/22/2024 elect lauroar diogr am No observ ation record ed. [email or web address] [address], [address] 04/22/2024 21:20:48 Result Notes None recorded. Medical [...] % 99 % 170/81 mm[Hg] Not Available [employer] 4 16:16:21 Date Recorded Heart rate Respiratory rate Oxygen saturation Oxygen saturation in Arterial blood by Pulse oximetry Body temperature Systolic And Diastolic Provider Name and Address Organization Details Last Updated DateTime 4 66 /min 16 /min 98 % 98 % 99 [degF] 160/90 mm[Hg] Not Available [employer] 4 19:21:40 Date Recorded Heart rate Oxygen saturation Oxygen saturation in Arterial blood by Pulse oximetry Body temperature Respiratory rate Systolic And Diastolic Provider Name and Address Organization Details Last Updated DateTime 4 65 /min 99 % 99 % 97.1 [degF] 16 /min 150/66 mm[Hg] Not Available [employer] 4 16:47:42 Date Recorded Respiratory rate Heart rate Body temperature Body weight Body height Oxygen saturation Oxygen saturation in Arterial blood by Pulse oximetry Systolic And Diastolic Provider Name and Address Organization Details Last Updated DateTime 3 16 /min 66 /min 99.1 [degF] 91695.8 8 g 144.78 cm 98 % 98 [...] ICD10 Code Diagnosis IMO Codes Diagnosis Note [id number] Ele Peña MD [address] [address] 05/29/2023 11:25:06 05/30/2023 11:17:09 Right flank pain 538431539 R10.9 Urinary symptoms 4379184 08 R39.9 [id number] Toña Zamora MD [address] [address] 11/25/2023 16:16:01 11/26/2023 12:35:10 Dizziness 228108708 R42 73 year old female with a [...] assessment and plan as documented by the circuit court clerk. I provided real-time medical direction for this encounter and was immediatel y available to provide additional phone-base d assistance as needed. We discussed the diagnostic uncertaint y of home visits and associated risks. We discussed the need to seek care urgently/e mergently in the setting of any new or worsening symptoms. [id number] Jaci Seymour MD [address] [address] 11/26/2023 17:33:41 11/28/2023 11:41:23 Hyponatremia 42156156 E87.1 [id number] Angelic Duncan MD [facility] [address] [place] [address] 04/22/2024 16:47:28 04/23/2024 12:53:07 Chest pain 98074966 R07.9 Health Concerns Section Related Observation LastModified by Organization Dettimmy ls LastModified Time None Recorded Concern Status LastModified by Organization Details LastModified Time None Recorded Advance Directives Directive None Recorded Payers Insurance Date Sequence Insurance Name Policy Number Policy Galloway Covered Member ID Galloway Member ID Guarantor Name 04/24/2024 1 [facility] - DOS ON OR AFTER 2022 - DUAL ELIGIBLE - [facility] [employer] AND ONE [employer] (MEDICARE REPLACEMENT/ADV ANTAGE - HMO) Vane Lisa [id number] Vane Lisa Notes Date Note Type Note [...] member remains symptomatic. Member in agreement with [facility] Referral. ..................... ..................... ..................... ..................... ..................... ..................... ............... CRC Nursing Assessment: Comments: CRC RN did not require any additional information to process this visit. ..................... ..................... ..................... ..................... ..................... ..................... ............... Control Board Operator Note From Babatunde Mancuso: Pt reports approx one week of right sided ABD and flank pain. Pt denies any precipitating event or associated injury. Pt denies dysuria, hematuria, CP, SOB, f/n/v/d. Pt was seen at [facility] ED on Monday, had full work up and was told everything was negative. Pt is alert, NAD. VSS. Afebrile. Neuro exam and gait normal. Lungs CTA. ABD is soft, non distended. No CVA tenderness. No KRISTYN. UA: 3+ BETY, - NIT, - BLO, - PRO. UC sent to [facility]. Pt instructed to continue with tylenol, call PCP s office today for f/u, and to seek emergent medical care for new or worsening sx, which are reviewed with her. [facility] Lab Orders: culture, urine: Performed ..................... ..................... ..................... ..................... ..................... ..................... ............... Disposition: Som Peña MD [address], [place], [address], [employer] 05/29/2023 12:02:51 11/25/2023 text/html CRC Nurse Triage Notes (Trent Servin): Patient Reports: Shortness of Breath; Palpitations, feeling dizzy; Weakness/tachycardiaD enies: Active Chest pain, radiates to neck jaw and or arm Diaphoretic/Sweating Describes as c rushing Sudden onset of nausea/Vomiting and shortness of breath. Unable to speak in full sentences without distress Chest pain, increased fatigue Chief Complaints: Syncope/Dizziness/Lig htheadednessPMH: Hypertension, DiabetesAllergies: UnknownComments: Local Sales Manager verified the member's name//address and phone number. [...] treatment x3 - InstED response times explained Control Board Operator POC Test Results from Babatunde Mancuso MANDO [...] result can be found under Documents section. Control Board Operator POC Test Results from Babatunde Mancuso MANDO Urine Dipstick (1) [16:28] Urine leukocytes: - BETY Urine nitrites: - NIT Urine urobilinogen: - URO Urine protein: - PRO Urine pH: 6.0 pH Urine blood: - BLO Urine specific gravity: 1.00 SG Urine ketones: - KET Urine bilirubin: - CALISTA Urine glucose: - GLU ..................... ..................... ..................... ..................... ..................... ..................... ............... Control Board Operator Note From Babatunde Mancuso: Pt reports three [...] ............... Disposition: Fulfilled Toña Zamora MD [address], [place], [address], [place] [facility] [employer] 11/25/2023 16:57:51 11/26/2023 text/html CRC Nurse Triage Notes (Trent Servin): Chief Complaints: Electrolyte Imbalance PMH: Hypertension, Diabetes Allergies: Unknown [facility] [...] POC labs uploaded; Na 129, Ca 1.08. [facility] RemarksPatient seen 11/24 for malaise/palpitations, unclear etiology, sodium 129, recommend FU 24-48h to repeat sodium level. - [facility] HPI:feeling gernally unwell, palpitatoins and dizziness. seen by insted yesterday, found to have sodium of 129. today, 127. on history, she reports being told by her pcp to restrict liquids b/c of low sodium but she doesn't how low. Control Board Operator POC Test Results from Perri Oliver - MANDO iSTAT Chem8+ (1) [19:22] Na: 127 mEq/L K: 4.2 mEq/L Cl: 97 mEq/L iCa: 1.11 mmol/L TCO2: 22 mmol/L Glu: 164 mg/dL BUN: 16 mg/dL Crea: 0.7 mg/dL Hct: 37 % Hb: 12.6 g/dL A ..................... ..................... ..................... ..................... ..................... ..................... ............... Control Board Operator Note From Perri Oliver: Community Control Board Operator Irvin Oliver [email or web address] dispatched to a [facility] for a 73 yof C/O hyponatremia. [...] on a fluid restriction by her PCP. [facility] consulted; pt was reassured that since she was asymptomatic, she was safe to stay home and should follow up w/ her PCP, especially to see if this sodium level was WNL for her. Pt verbalized understanding and agreed. Red flags discussed at length. ..................... ..................... ..................... ..................... ..................... ..................... ............... Disposition: Som Seymour MD [address] [place] [address],[address], [place], [address], [employer] 11/26/2023 19:46:26 04/22/2024 text/html HPI: Maya is a 73 yo Faroese/Faroese speaking female with extensive medical hx including [...] with Mbr as applicable. Call originated from [phone]. Address and phone number confirmed with Mbr. ..................... ..................... ..................... ..................... ..................... ..................... ............... CRC Nurse Triage Notes (Trent Servin): Chief Complaints: Pain, Diarrhea, Weakness/Lethargy PMH: Heart Disease, Hypertension, Diabetes Comments: Reviewed HPI Control Board Operator Organization Information for Babatunde Mancuso Business Legal Name: [facility] Address: [address] [place] [address], Second Cutter: Ryan Pedraza MD [facility] No.: [id number] Control Board Operator POC Test Results from Babatunde Mancuso [facility] EKG (16:42:22) EKG test performed. Attachments uploaded as part of this test result can be found under Documents section. ..................... ..................... ..................... ..................... ..................... ..................... ............... Control Board Operator Note From Babatunde Mancuso: Pt reports three [...] to drive her. Pt to go to [facility] via family. ..................... ..................... ..................... ..................... ..................... ..................... ............... Disposition: Fulfilled Angelic Duncan MD [address], [place], [address], [employer] 04/22/2024 20:55:44 OBGyn Episode No OBEpisode recorded.
== END 2025-05-27 06:21 | disposition home or self-care (01) ==
LOC: CF 06:20
PROVIDERS: Visit Provider Anesthesiology
DX: M17.0 Bilateral primary osteoarthritis of knee (principal)
CPT/HCPCS: 64624; J2003; J2795; J3301

== ENCOUNTER 2025-05-27 10:19 | Outpatient (AMB) | payer OTHER, SELFPAY ==
--- NOTE | 2025-05-27 10:28 | MHC.OFFVIS ---
Vital Signs 05/27/25 10:33 05/27/25 11:53 Height 4 ft 9 in Weight 122 lb BMI 26.4 BP 158/57 H 165/79 H Blood Pressure Location Lt brachial Lt brachial Position Sitting Sitting Respiration 16 16 Pulse 59 65 Pulse Source Pulse Oximeter Pulse Oximeter Pulse Oximetry (%) 100 100 Oxygen Delivery Method Room Air Room Air Intake Visit Reasons: Right geniculate nerve RFA Allergies hydrochlorothiazide Allergy (Unknown, Verified 04/24/25 10:44) Rash tramadol Allergy (Unknown, Verified 04/24/25 10:44) tachycardia Physical Exam Vital Signs: Last Vital Signs Pulse 65 05/27/25 11:53 Resp 16 05/27/25 11:53 BP 165/79 H 05/27/25 11:53 Pulse Ox 100 05/27/25 11:53 Oxygen Delivery Method Room Air 05/27/25 11:53 BMI result Body Mass Index 26.4 Assessment & Plan Assessment & Plan (1) Bilateral knee pain: Code(s): M25.561 - Pain in right knee; M25.562 - Pain in left knee Category: Medical (2) Osteoarthritis of knees, bilateral: Code(s): M17.0 - Bilateral primary osteoarthritis of knee Category: Medical Plan Right genicular nerves radiofrquency ablation. Vane is very pleasant 74 y.o. female who is suffering from severe arthritis of the bilateral knees. She got succesful genicular nerve block with more than 6 hours of pain relieve in the knees. She came today to the operating room to receive radiofrequency ablation of the genicular nerves on the right. Informed concent was obtained and risks and benefits were explained to the patient. Risks and benefits were explained to the patient. She was taken to the operative room and positioned supine on the operating table . Time-out was performed delineating name and date of of the patient, side and site of the procedure, risks and benefits of the procedure allergies of the patient. The right anterior anterior lateral and anterior medial surfaces of the knee as well as surface of the anterior thigh and anterior lower leg were prepped with ChloraPrep and draped with sterile self adhesive utility towels. C-arm was brought over the operating field and picture of the knee joint was demonstrated on the screen. The point of interest were delineated as confluence of the silhouette of the diaphysis and epiphysis of the femur bone on the lateral and immediately side as well as confluence of the silhouette of the diaphysis and epiphysis of the tibia on the medial side as well. The points of interest projection to the skin were injected with small amount of preservative-free lidocaine 2% mixed with ropivacaine 0.5% 1-1. After that 50 mm cool RFA probes were inserted through the skin wheals and advanced to were the points of interest under x-ray guidance. When the tip of the needles gently touched the bones the position of the C-arm was change into the lateral view with care taken to superimposed condyles on the view. The position of the probes were adjusted to make sure the tip of the probes located in the projection of the mid shaft of all bones. After that the device was turned on and radiofrequency energy was applied. Upon completion of radiofrequency energy application the probes were removed, sterile Band-Aids were applied. The patient tolerated the procedure well. Orders: Orders FL guidance in treatment room 05/27/25 M25.561 - Pain in right knee, M25.562 - Pain in left knee Coding Level of Care Code Procedure Only Diagnoses Bilateral knee pain M25.561; M25.562 Osteoarthritis of knees, bilateral M17.0
[2025-05-27 10:33] VITALS: BP 158/57; PULSE 59; RESP 16; O2SAT 100; BMI 26.4
[2025-05-27 11:53] VITALS: BP 165/79; PULSE 65; RESP 16; O2SAT 100
== END 2025-05-27 12:15 | disposition home or self-care (01) ==
LOC: HO.PMCPRC 10:19
PROVIDERS: PCP Internal Medicine; Visit Provider Anesthesiology
DX: M25.561 Pain in right knee (principal); M17.0 Bilateral primary osteoarthritis of knee
CPT/HCPCS: 64624

== ENCOUNTER 2025-06-11 10:13 | Outpatient (AMB) | payer OTHER, SELFPAY ==
--- OUTSIDE RECORDS SUMMARY | 2025-06-09 05:30 | XMS_ITS ---
Author Organization [facility] Address [address] [place] [address] Care Team Providers Care Head Of Loss Prevention Name Role Phone Eyal Leung Unavailable [phone] Allergies Allergen (clinical drug ingredient) Drug/Non Drug Allergy documented on EMR Reaction Allergy Type Onset Date Status Penicillin Unknown Drug Allergy Active REASON FOR VISIT At Risk Footcare, Painful Nail(s) aggrevated by shoes and causing difficulty standing/walking., Painful Toe(s) Medications Medication SIG (Take, Route, Frequency, Duration) Notes Start Date End Date Status amLODIPine Besylate 10 MG Oral; Duration: 30 Days Active Carvedilol 12.5 MG Oral; Duration: 30 Days Active Fluticasone Propionate 50 MCG/ACT Nasal; Duration: 30 Days Act juli Orthopedic Extra Depth Shoes With Custom Heat Molded Multidensity Innersoles 1 Pair shoes with 3 Pair custom heat molded innersoles Wear Daily; Duration: 365 days 06/09/2025 Active Clotrimazole 1 % 1 application to aff ected toe nails twide a day Externally Twice a day; Duration: 14 days 06/09/2025 Active Sucralfate 1 GM Oral; Duration: 30 Days Active Omeprazole 20 MG Oral; Duration: 30 Days Active hydrALAZINE HCl 25 MG Oral; Duration: 30 Days Active Gabapentin 100 MG Oral; Duration: 30 Days Active Atorvastatin Calcium 20 MG Oral; Duration: 30 Days Active Social History Tobacco Use: Social History Observation Description Date Details (start date - stop date) Never Smoker NA - NA Tobacco use other than smoking: Question Answer Notes Are you an other tobacco user? No Tobacco Control (Standard) Question Answer Notes Tobacco use: Nonsmoker Additional Findings: Tobacco non-user Current no nsmoker AUDIT-C (Standard) Question Answer Notes Did you have a drink containing alcohol in the p ast year? No Points 0 Interpretation Negative Problems Problem Type SNOMED Code ICD Code Onset Dates Problem Status W/U Status Risk Notes Problem Bilateral atherosclerosis of arteries of lower limbs (disorder) (82059859173212992 ) Atherosclerosis of artery of both lower extremities (I70.203) Active confirmed Q7(A), Q8(2B), Q9(1B,2 C) Problem Acquired hammer toe of right foot (2322307743867567) Other hammer toe(s) (acquired), right foot (M20.41) Active confirmed Problem Localized, primary osteoarthritis of the ankle and/or foot (721185958) Arthritis of joint of lesser toe, right (M19.071) Active confirmed Vital Signs Height 4ft 9in in 06/09/2025 Weight 118 lbs 06/09/2025 BMI 25.53 kg/m2 06/09/2025 Blood pressure systolic 120 mm Hg 06/09/20 25 Blood pressure diastolic 80 mm Hg 025 Procedures Procedure Date Ordered Date Performed Result Body Sit e 46825-RGQTQEJ NAIL, 1-5 06/09/2025 N/A 95410-RIVU SKIN LESIONS, 2 TO 4 06/09/2025 N/A [id number] DYSTROPHIC NAILS ANY # 06/09/2025 N/A Encounters Encounter Location Date Provider Diagnosis [facility] [address] [address] 06/09/2025 Eyal Leung Atherosclerosis of artery of both lower extremities I70.203 ; Tinea unguium B35.1 ; Pain in left toe(s) M79.675 ; Pain in right toe(s) M79.674 ; Other hammer toe(s) (acquired), right foot M20.41 ; Arthritis of joint of lesser toe, right M19.071 ; 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 and Subluxation of metatarsophalangeal joint of toe, initial encounter S93.149A Assessments Encounter Date Diagnosis (ICD Code) Assessment Notes Treatment Notes Treatment Clinical Notes Section Notes 06/09/2025 Atherosclerosis of artery of both lower extremities (ICD-10 - I70.203) Q7(A), Q8(2B), Q9(1B,2C) 06/09/2025 Tinea unguium (ICD-1 0 - B35.1) 06/09/2025 Pain in left toe(s) (ICD-10 - M79.675) 06/09/2025 Pain in right toe(s) (ICD-10 - M79.674) 06/09/2025 Other hammer toe(s) (acquired), right foot (ICD-10 - M20.41) 06/09/2025 Arthritis of joint o f lesser toe, right (ICD-10 - M19.071) 06/09/2025 Acquired adductovaru s rotation of toe of right foot (ICD-10 - M20.5X1) 06/09/2025 Subluxation of metatarsophalangeal joint of toe, initial encounter (ICD-10 - S93.149A) Plan Of Treatment Medication Medication Name Sig Start Date Stop Date Notes Orthopedic Extra Depth Shoes With Custom Heat Molded Multidensity Innersoles 1 Pair shoes with 3 Pair custom heat molded innersoles Wear Daily; Duration: 365 days 06/09/2025 Clotrimazole 1 % 1 application to aff ected toe nails twide a day Externally Twice a day; Duration: 14 days 06/09/2025 Pending Test Test Name Order Date X ray : Foot, right 3V 06/09/2025 [id number] NAIL, 1-5 06/09/2025 [id number] SKIN LESIONS, 2 TO 4 06/09/20 25 [id number] DYSTROPHIC NAILS ANY # Next Appt Details Follow Up: 3 Months, Reason: Provider Name:Eyal mendoza, 09/09/2025 11:00:00 AM, [address], [place], [address], Procedure Notes * Category Sub-Category Detail Notes Keratoma Treatment Parring or Cutting o f Benign Hyperkeratotic Lesion(s) (-56) 2-4 Lesions - Due to the at risk nature of the patients medical condition as documented in the exam findings, performance of this keratoderma treatment is medically necessary as its management by an unskilled/untrained nonprofessional would put this patients foot and overall health at risk. Therefore, the benign hyperkeratotic lesions, (3) in total, locations as stated and described in the exam ( IPJ, T9, SUB MTH (s), 5, B/L), were pared, and/or cut utilizing a sterile 15 blade, tissue nippers, and/or power dremel instrumentation by the physician of record - 76529, Q8 Debride Nails 1-5 Procedure: Due to the cli nical pathology outlined in the exam findings, performance of this nail treatment is medically necessary as its management by an unskilled/untrained nonprofessional would put this patients foot and overall health at risk. Therefore, debridement to affected nail(s), as described in exam ( T2, T3, T5, T7, T8), was performed exclusively by the physician of record to reduce/remove overall nail length, girth, thickness, subungual debris, and necrotic tissue, by manual and/or electrical means through the use of a nail nipper and/or dremel stylegrinder, to a more viable healthy nail plate or bed tissue 5 nails or fewer in number. Silver nitrate was used for any petechial bleeding as necessary. Definitive antifungal treatment options, both pharmaceutical and surgical, have been reviewed and discussed with the patient. The patient solely prefers the use of intermittent/as needed professional debridement services for their nail condition and understands that additional periodic treatments may be required as necessary to maintain effective symptomatic relief - 31250 Nail Reduction Nail Reduction (-27) Trimming o f all dystrophic nails - Due to the at risk nature of the patients medical condition as documented in the exam findings, performance of this nail treatment is medically necessary as its management by an unskilled/untrained nonprofessional would put this patients foot and overall health at risk. Therefore, the dystrophic nails, in locations as stated and described in the exam ( TA, T1, T4, T6, T9), were debrided by the phisician of record to reduce/remove overall nail length and girth, by manual and electrical means with use of a nail nipper and/or dremel, to more viable healthy nail plate or bed tissue - G0127, Q8 Progress Notes * Lara LISA:1950 (74 yo F)Acc No.[id number]:06/09/2025 Progress Notes Patient: Vane ODSHI Provider: Lida Leung DPM :1950 A ge:74 Y S ex:Female Date:06/09/2025 Address:[address] [place] [address] Subjective: * Chief Complaints: * A t Risk FootcarePainful Nail(s) aggrevated by shoes and causing difficulty standing/walking.Painful Toe(s) * HPI: A t Risk footcare: Pt States Last PCP Visit: D ate 0 03/05/2025 Misc P atient accompanied by, TRIAL COURT JUDGE (Renea), who is physically present in exam room at time of visit. T oe pain: Nature: t enderness. Location: 4 th toe, 5th toe, Right foot. Duration: s everal months. Course: w orse. Aggravated by: a ny pressure, shoes. Treatments: r est/alter normal daily activity, change in shoes. * ROS: G eneral/Constitutional: Nausea d enies. V omiting d enies. H elvis Thirst d enies. L oss appetite d enies. C hills d enies. F atigue d enies.?Fever d enies. N ight Sweats d enies. U nexplained weight loss d enies. U nexplained weight gain d enies. H EENTM: Dentures a dmits. D izziness d enies. G lasses/contacts d enies. R etinopathy d enies. B lurred/double vision d enies. T MJ?denies. D ischarge/drainage d enies. I mplants d enies. S ore throat d enies. D ental implants d enies. H shayla of hearing a dmits. D ifficulty chewing/swallowing/speaking d enies. N ose bleeds d enies. S ore mouth d enies. ? R espiratory: On Oxygen d enies. P neumonia/pleurisy d enies.?Bronchitis d enies. E mphysema d enies. C oughing d enies. C ough blood?denies. S hortness of breath d enies. W heezing d enies. C ardiovascular: Pacemaker a dmits. M WOOD INSPECTOR d enies. W PW d enies. C HF d enies. H eart attack d enies. S eptal defect d enies. R apid beat d enies. C hest pain d enies. A trial Fib. d enies. M urmur/Palpitations d enies. G astrointestinal: Hemorrhoids d enies. S tomach/Abdominal pain d enies. D ark blood stool d enies. I rritable bowel d enies. C onstipation a dmits. D iarrhea d enies. H ematology: Swelling d enies. C lots d enies. V aricose Veins d enies. B ruising d enies. B leeding problem d enies. G enitourinary: Blood urine d enies. F requent/Painfu/urination/bladder control d enies. K idney stones a dmits. I nfection (UTI) d enies. N ephropathy a dmits. s ex trans dis (STD) d enies. P rostate d enies. M usculoskeletal: Hammertoes a dmits. B unions d enies. B ack Pain d enies. M uscle Cramps/ Resting d enies. M uscle cramps / walking d enies.?Generalized aches and pains a dmits. W eakness a dmits. I nteg.: Mosher d enies. S cars d enies. C orns/calluses?admits. I ngrown nails d enies. P ainful nails a dmits. O pen Sores d enies. R ashes d enies. N eurologic: Difficulty sleeping a dmits. B rain disorder d enies. N umbness d enies. B alance trouble a dmits. C onfusion d enies. F ainting/blackouts d enies. T ingling d enies. T remors d enies. * Medical History: * Surgical History: c ardiac pacemeker * Hospitalization/Major Diagno stic Procedure: D enies Past Hospitalization * Family History: M other: , diagnosed with Diabetic - NIDDM, Unspecified essential hypertension. F ather: . * Social History: T obacco Use: T obacco use other than smoking A re you an other tobacco user? N o Tobacco Control (Standard) T obacco use: N onsmoker A dditional Findings: Tobacco non-user C urrent nonsmoker D rugs/Alcohol: D rugs H ave you used drugs other than those for medical reasons in the past 12 months? N o M iscellaneous: C affeine: yes, frequency:, 1-2 cups per day. Children: yes, 7. Exercise: no. Marital status: . Occupation: Retired. D rug/Alcohol: A ANN-C (Standard) D id you have a drink containing alcohol in the past year? N o P oints 0 I nterpretation N egative * Medications: T akingSucralfate 1 GM Tablet Oral hydrALAZINE HCl 25 MG Tablet Oral Omeprazole 20 MG Capsule Delayed Release Oral Atorvastatin Calcium 20 MG Tablet Oral Gabapentin 100 MG Capsule Oral Carvedilol 12.5 MG Tablet Oral amLODIPine Besylate 10 MG Tablet Oral Fluticasone Propionate 50 MCG/ACT Suspension Nasal Medication List reviewed and reconciled with the patientTaking Sucralfate 1 GM Tablet Oral Taking hydrALAZINE HCl 25 MG Tablet Oral Taking Omeprazole 20 MG Capsule Delayed Release Oral Taking Atorvastatin Calcium 20 MG Tablet Oral Taking Gabapentin 100 MG Capsule Oral Taking Carvedilol 12.5 MG Tablet Oral Taking amLODIPine Besylate 10 MG Tablet Oral Taking Fluticasone Propionate 50 MCG/ACT Suspension Nasal Medication List reviewed and reconciled with the patient * Allergies: P enicillin: Allergyyes[Allergies Verified] Objective: * Vitals: H t: 4ft 9in, Wt:118, BMI:25.53, Shoe size: 8, BP:120/80mm Hg, Ht-cm: 144.78 cm, Wt-k.52 kg. * Examination: G eneral Examination: GENERAL APPEARANCE: R eveals a pleasant, alert, well nourished, well-developed, well hydrated individual, who demonstrates proper attention to hygiene/body habitus, and is in no acute distress, Pt serves as own historian for office visit today. ORIENTED: p erson, place, and time. N eurological: SENSORY: N eurological exam reveals intact sensorium, pain sensation normal, vibration sensation intact, pinprick sensation is normal in the lower extremities, Pt denies, anesthesia, burning, paresthesia, tingling, B/L. X -Rays - IMAGING REPORT: Clinical Indication(s): Evaluate Biomechanical Deformity,?Evaluate for Fracture. Views: 3 views of Foot, AP, LAT, LO, RIGHT Taken by trained P odiatric Residential Sales Manager ( Eddie C ). Findings: normal bone for patients age and sex,increase in soft tissue contour and density at the symptomatic site, calcified vessels are visible. Digits: show asymmetrical joint space narrowing at the PIPJ consistent with clinical finding of hammertoe deformity, show exostosis of 5 th digit, bone at distal phalanx in area of pain. Fracture: Negative fractures identified , Negative fractures identified. O rthopedic: MUSCLE STRENGTH: 5 /5 all groups in a symmetrical fashion, B/L. DIGITAL DEFORMITIES: D igital contracture, PIPJ, 2-5 B/L, reducible with WB, or to push-up test, no over, nor underlapping, Adducto-varus deformity, pain on palpation noted, fifth toe, Lateral IPJ, T9. FOOTWEAR EVALUATION: s hoe gear properties exacerbate patients complaints in relation to their foot/toe deformity , shoe gear properties exacerbate patients complaints in relation to their foot/toe deformity. V ascular: DP PULSES (B): 0 /4, B/L. PT PULSES (B): 0 /4, B/L. CAPILLARY FILL TIME: d elayed, all digits, B/L. TROPHIC CONDITION-TEXTURE/ELASTICITY/TURGOR/HAIR GROWTH (B):?decreased, fragile, thin, shiny skin, with sparse to absent hair growth, B/L. TEMPERTURE GRADIENT (C): d ecreased, cool to cool, proximal to distal, B/L. PIGMENTATION: r ubrous. EDEMA (C): 1 /4, non-pitting, without aching pain, Leg(s), Ankle(s). CLAUDICATION (C): d enies, B/L. REST PAIN: d enies, B/L. PARESTHESIA (C): a bsent, B/L. BURNING (C): a bsent, B/L. D ermatologic: SKIN FINDINGS: S kin exam reveals Keratotic lesion(s) located at Lateral, IPJ, T9, SUB MTH (s), 5, B/L. N ails: NAILS are: E longated, overgrown, dystrophic, lytic, greater than 3mm thick, discolored and friable with crumbly malodorous subungual debris, with pain on palpation, ( T2, T3, T5, T7, T8), all other nails not described with characteristics as possessing mycosis are elongated, overgrown, and dystrophic , TA, T1, T4, T6, T9. Assessment: * Assessment: 1. T inea unguium - B35.1 2 . A therosclerosis of artery of both lower extremities - I70.203 (Primary) S pecify :Q8 N otes :Q7(A), Q8(2B), Q9(1B,2C) 3 . P ain in left toe(s) - M79.675 4 . P ain in right toe(s) - M79.674 5 . O ther hammer toe(s) (acquired), right foot - M20.41 S pecify :Chronic problem, Worse (4) Rx Management 6 . A rthritis of joint of lesser toe, right - M19.071 7 . 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 S ubluxation of metatarsophalangeal joint of toe, initial encounter - S93.160A Plan: * Treatment: 2. T inea unguium Start Clotrimazole Solution, 1 %, 1 application to affected toe nails twide a day, Externally, Twice a day, 14 days, 10 Milliliter, Refills 3. P rocedure: [id number] NAIL, 1-5 3. P ain in right toe(s) I maging: X ray : Foot, right 3V 4. O ther hammer toe(s) (acquired), right foot Start Orthopedic Extra Depth Shoes, With Custom Heat Molded Multidensity Innersoles, 1 Pair shoes with 3 Pair custom heat molded innersoles, Wear, Daily, 365 days, 2, Refills 0. * Procedures: D ebride Nails 1-5: Procedure: D ue to the clinical pathology outlined in the exam findings, performance of this nail treatment is medically necessary as its management by an unskilled/untrained nonprofessional would put this patients foot and overall health at risk. Therefore, debridement to affected nail(s), as described in exam ( T 2, T3, T5, T7, T8), was performed exclusively by the physician of record to reduce/remove overall nail length, girth, thickness, subungual debris, and necrotic tissue, by manual and/or electrical means through the use of a nail nipper and/or dremel stylegrinder, to a more viable healthy nail plate or bed tissue 5 nails or fewer in number. Silver nitrate was used for any petechial bleeding as necessary. Definitive antifungal treatment options, both pharmaceutical and surgical, have been reviewed and discussed with the patient. The patient solely prefers the use of intermittent/as needed professional debridement services for their nail condition and understands that additional periodic treatments may be required as necessary to maintain effective symptomatic relief - 97443. K eratoma Treatment: Parring or Cutting of Benign Hyperkeratotic Lesion(s) ( -56) 2-4 Lesions - Due to the at risk nature of the patients medical condition as documented in the exam findings, performance of this keratoderma treatment is medically necessary as its management by an unskilled/untrained nonprofessional would put this patients foot and overall health at risk. Therefore, the benign hyperkeratotic lesions, (3) in total, locations as stated and described in the exam ( IPJ,T9,SUB MTH (s),5,B/L), were pared, and/or cut utilizing a sterile 15 blade, tissue nippers, and/or power dremel instrumentation by the physician of record - 58372, Q8. N ail Reduction: Nail Reduction ( -27) Trimming of all dystrophic nails - Due to the at risk nature of the patients medical condition as documented in the exam findings, performance of this nail treatment is medically necessary as its management by an unskilled/untrained nonprofessional would put this patients foot and overall health at risk. Therefore, the dystrophic nails, in locations as stated and described in the exam ( T A, T1, T4, T6, T9), were debrided by the phisician of record to reduce/remove overall nail length and girth, by manual and electrical means with use of a nail nipper and/or dremel, to more viable healthy nail plate or bed tissue - G0127, Q8. * Procedure Codes: G 0127 TRIMMING DYSTROPHIC NAILS ANY #, Modifiers: XS , [id number] TRIM SKIN LESIONS, 2 TO 4, Modifiers: XS , [id number] DEBRIDE NAIL, 1-5, Modifiers: XS 43256 X-RAY EXAM OF RIGHT FOOT 3V, Modifiers: 26 , RT * Preventive Medicine: Counseling: D iscussion: - 04: Office or other outpatient visit for the evaluation and management of a new patient, which required a medically appropriate history and/or examination and MODERATE level of DECISION MAKING for: 1 OR MORE CHRONIC PROBLEM(S) THATS WORSENING, 2 STABLE CHRONIC PROBLEMS, A NEWLY DIAGNOSED PROBLEM WITH UNCERTAIN PROGNOSIS, AN ACUTE COMPLICATED INJURY WITH MULTIPLE TREATMENT OPTIONS, OR AN ACUTE PROBLEM WITH ACCOMPANYING SYSTEMIC SYMPTOMS, THAT POSE(S) A MODERATE RISK OF MORBIDITY. THIS CONDITION MAY ALSO INCLUDE RX DRUG MANAGEMENT, OR A DECISON FOR MINOR SURGERY. The visit on the day of the encounter encompassed interpreting the data and educating the patient as to the nature of their condition, treatment options available according to their individual PMH, meds, allergies, and overall health/living conditions, as well as any potential risks or complications that may occur from a failure to adhere to, and participate in, the recommended course of therapy. The discussion included a complete verbal, and/or written explanation of the examination results, any x- rays taken, the proposed diagnosis, and outline of the treatment plan. A schedule for future care needs was also explained. The patient verbalized an understanding of the instructions at this time and agreed to be an active participant in their treatment. If the patient should think of any questions or concerns after the visit, I have encouraged the patient to call the office. A t Risk Diabetic/ASO/PVD Footcare: T he patient was advised against self nail/callus care due to inherent risks for infection, loss of limb/life given, peripheral vascular disease. D igital Surgery: D igital surgery was discussed with the patient, including the risks of surgery(below), vs not having surgery (persistent pain, deformity, risk for skin ulceration/infection, loss of toe), the potential surg complications, the anesthesia, and the usual post-op course. No guarentees were given. We discussed the potential procedure complications including, but not limited to: pain, swelling, bleeding, scarring, numbness, infection, delayed/non healing, floppy/unstable/shorthened toe, recurrence, failure of the procedure, overcorrection leading to plantarflexed/downward positioned toe, recurrence, need for further surgery, as well as the possibility for loss of the toe itself. We discussed the use of local anesthesia, and the usual post-op course for healing. No guarentees were given. The patient verbally indicated a full understanding of the above conversation, and any other of their questions were answered to their satisfaction. Alternatives to the procedure were also discussed, including conservative care. I also discussed the usual post-operative course and gave no guarantees regarding outcome, We elected to try conservative treatment at the present time, due to the patients age, medical history, and circulatory constraints. D igital Treatment: H T- I explained to the patient the possible etiologies of Hammertoes, including genetics/foot type/shoegear/activity level/exercise routine and the risks/benefits of all the different treatment options for their pain including: No treatment at all, Rest, Ice, New/supportive/wider/deeper Shoe gear, Digital Padding/Strapping/Taping/Bracing/Gel protective sleeves, Foot/Ankle AFO Bracing, Stretching exercises, Deep Tissue Massage, Arch support/shoe inserts with splay metatarsal padding, and Custom orthoses. I insisted that any digital devices be removed daily and not worn overnight for safety. The patient is to carefully examine the toes daily for any skin irritation while using any splinting or padding device. The advantages and disadvantages of each option were discussed and the patients questions re: shoe gear, padding, custom vs prefabricated inserts, activity level, and consistency in home treatment regimens for optimal success were answered to their verbally confirmed satisfaction. Applied a toe silicone sleeve to the right 5th toe to alleviate pressure and pain, patient wanted to get a customized shoes to assist with her foot deformity , Rx: Extra Depth Orthopedic Shoes with 3 pair of custom heat-molded inserts. S hoe Gear Counseling: T he patient and I reviewed the types of shoes they should be wearing. My recommendation included obtaining a well-fitted shoe with a good supportive, non-foldable nor twistable sole, plenty of toe/room for the forefoot, and proper arch support. Based on todays examination, I recommended the patient look for new shoes, by having their feet professionally measured. We discussed that generally the best time of the day for a shoe fitting is the afternoon. Different shoes types and brands to best match the patients occupation and vocation were discussed. Specific brand selection will be up to the patient, their individual foot condition/deformities, and fit. The patient and I reviewed the standard new shoe break in period by wearing them for a few hours a day while checking for redness or sores as wear time is increased. The patient verbally confirmed to understanding the information discussed. Discussed wide toe box shoes and recommended supportive active shoes with that option including [employer], [employer]ics, New Balance, [employer]. Patient wanted to get a custom shoes to accomodate her foot pain and deformity , Rx: Extra Depth Orthopedic Shoes with 3 pair of custom heat-molded inserts was given to patient and a list of shoe companies that may assist in providing service. Patient is aware that her insurance may not cover this service and she may pay out of pocket. X -rays: D iscussed and reviewed the X-rays with the patient. We discussed how the findings relate to the patients symptoms/complaints. Answered any and all questions.. Screening/Special Tests: F all Risk Screening: N o falls in the past year F ALLS: Screening for Future Fall Risk Have you had two or more falls in the past year? N o Have you had any falls with injury in the past year? N o * Follow Up: 3 Months * Images: * Sign off status: Completed true * Provider: Lida Leung DPM Date: 08/09/2024 Generated for Paz morton/Franko/Eneitting on: 08/11/2024 07:28 PM EST History and Physical Notes * HPI (History of Present Illness) Category Sub-Category Detail Notes Category Not es Toe pain Nature: tenderness Location: 4th toe, 5th toe, Ri ght foot Duration: several months Course: worse Aggravated by: any pressure, shoes Treatments: rest/alter normal da sharmila activity, change in shoes At Risk footcare Pt States Last PCP Visit: Date: 5 [facility] [place] Patient accompanied by, TRIAL COURT JUDGE (Renea), who is physically present in exam room at time of visit Examination Category Sub-Category Detail Notes Category Not es Neurological SENSORY: Neurological exa m reveals intact sensorium, pain sensation normal, vibration sensation intact, pinprick sensation is normal in the lower extremities, Pt denies, anesthesia, burning, paresthesia, tingling, B/L Dermatologic SKIN FINDINGS: Skin exam reveal s Keratotic lesion(s) located at Lateral, IPJ, T9, SUB MTH (s), 5, B/L Orthopedic FOOTWEAR EVALUATION: shoe gear p roperties exacerbate patients complaints in relation to their foot/toe deformity , shoe gear properties exacerbate patients complaints in relation to their foot/toe deformity DIGITAL DEFORMITIES: Digital contracture , PIPJ, 2-5 B/L, reducible with WB, or to push-up test, no over, nor underlapping, Adducto-varus deformity, pain on palpation noted, fifth toe, Lateral IPJ, T9 MUSCLE STRENGTH: 5/5 all groups in a symmetrical fashion, B/L General Examination GENERAL APPEARANCE: Reveals a pleasant, alert, well nourished, well-developed, well hydrated individual, who demonstrates proper attention to hygiene/body habitus, and is in no acute distress, Pt serves as own historian for office visit today ORIENTED: person, place, and t [facility] DP PULSES (B): 0/4, B/L PT PULSES (B): 0/4, B/L CAPILLARY FILL TIME: delayed, all digits , B/L TEMPERTURE GRADIENT (C): decreased, cool to cool, proximal to distal, B/L TROPHIC CONDITION-TEXTURE/ELASTICITY/TURGOR/HAIR GROWTH (B): decreased, fragile, thin, shiny skin, wi th sparse to absent hair growth, B/L EDEMA (C): 1/4, non-pitting, wi thout aching pain, Leg(s), Ankle(s) CLAUDICATION (C): denies, B/L REST PAIN: denies, B/L PIGMENTATION: rubrous PARESTHESIA (C): absent, B/L BURNING (C): absent, B/L Nails NAILS are: Elongated, overg rown, dystrophic, lytic, greater than 3mm thick, discolored and friable with crumbly malodorous subungual debris, with pain on palpation, ( T2, T3, T5, T7, T8), all other nails not described with characteristics as possessing mycosis are elongated, overgrown, and dystrophic , TA, T1, T4, T6, T9 X-Rays - IMAGING REPORT Findings: normal b one for patients age and sex,increase in soft tissue contour and density at the symptomatic site, calcified vessels are visible Fracture: Negative fractures i dentified , Negative fractures identified Digits: show asymmetrical bessy int space narrowing at the PIPJ consistent with clinical finding of hammertoe deformity, show exostosis of 5th digit, bone at distal phalanx in area of pain Views: 3 views of Foot, AP, LAT, LO, RIGHT Taken by trained Podiatric Residential Sales Manager ( [place] ) Clinical Indication(s): Evaluate Biomech anical Deformity, Evaluate for Fracture
[2025-06-11 10:18] VITALS: BP 148/68; PULSE 63; RESP 16; O2SAT 98; BMI 27.3
--- NOTE | 2025-06-11 10:18 | MHC.OFFVIS ---
Vital Signs 06/11/25 10:18 Height 4 ft 9 in Weight 126 lb BMI 27.3 BP 148/68 H Blood Pressure Location Lt brachial Position Sitting Respiration 16 Pulse 63 Pulse Source Pulse Oximeter Pulse Oximetry (%) 98 Oxygen Delivery Method Room Air Intake Visit Reasons: Low Back Pain Construction Worker Required: No Construction Worker Services: Construction Worker Offered & Declined Accompanied by: BILINGUAL PATIENT SUPPORT CASEWORKER Allergies hydrochlorothiazide Allergy (Unknown, Verified 06/11/25 10:23) Rash tramadol Allergy (Unknown, Verified 06/11/25 10:23) tachycardia HPI Comments Details: Stephanie is back in my office after radiofrequency ablation of genicular nerves. The genicular nerve blocks with local anesthetics resulted in 7 weeks of pain improvement. However after radiofrequency ablation she reports very minimal pain improvement. Nevertheless she reports improved mobility and improved ability to walk. It is of course very positive result however in the future the another radiofrequency ablation of genicular nerves would not be indicated for this patient. She needs to consider total knee replacement. She also presents today in my pain with lower back pain. In the past she address this issue to me. On physical exam we were discovering signs and symptoms of bilateral sacroiliitis. I offered the patient today to go for diagnostic bilateral sacroiliac joint injection. Prior advanced osteoarthritis in multiple locations. complains on pain in bilateral shoulders pain in bilateral knees and pain in bilateral lower extremities and pain in the lower back. She reports the lower back pain radiates into the right lower extremity. She reports that radiation ends in the 2nd toe. She reports her pain today 10/10. She is severely disabled. She needs walker for ambulation. Weather changes in movements aggravate her pain. For her pain control she takes Tylenol Arthritis. She never had MRI or CT scan of her lumbar spine. MRI is contraindicated for the patient because she has a pacemaker. She had physical therapy for the knees and shoulders but not for her lower back. She on physical exam has her knees grossly deformed and probably destroyed by the arthritis. In the past she received knee injections and shoulder injections however she denied any help from steroid injections. Review of Systems Const All systems reviewed & are unremarkable except as noted in HPI and below ENT Reports Normal hearing present Neuro Reports Normal hearing present, Denies Abnormal speech present, Denies confusion and Denies Sensory deficit (Neuro) Psych Denies confusion Physical Exam Vital Signs: Last Vital Signs Pulse 63 06/11/25 10:18 Resp 16 06/11/25 10:18 BP 148/68 H 06/11/25 10:18 Pulse Ox 98 06/11/25 10:18 Oxygen Delivery Method Room Air 06/11/25 10:18 BMI result Body Mass Index 27.3 Const General: no acute distress; No confusion Orientation/consciousness: patient oriented x3 and No confusion Limitations: language barrier Eyes General: appearance normal, both eyes and all related structures Pupils: Equal, round and reactive pupils present EOM: EOMs intact bilaterally Neck Neck: Yes full ROM Chest Chest palpation & inspection: normal inspection of the chest Resp Effort & Inspection: normal respiratory effort, able to speak in complete sentences, normal respiratory pattern, no audible wheezes and no cough Cardio Jugular venous distension: no JVD GI Inspection: Yes normal to inspection Back/Spine/Pelvis Other: Severe tenderness on palpation in projection of the most lower portion of the lumbar spine. SLR is equivocal bilaterally, Eleuterio test is positive bilaterally, Gaenslen test is positive bilaterally, pelvic compression and pelvic distraction tests are positive bilaterally. Valsalva maneuver aggravates patient's pain. Neuro General: patient oriented x3, gait normal and No confusion Cranial nerves: Yes CN's II-XII intact bilaterally, Yes Equal, round and reactive pupils present, Yes Normal hearing present and Yes Ability to bilaterally elevate shoulders present Speech: No Abnormal speech present Gait exam (Neuro): Normal gait present Motor exam (neuro): 5/5 motor strength present throughout Sensory Exam: No Sensory deficit (Neuro) Extrem Other: On inspection of the bilateral knees: Gross deformity demonstrating end-stage terminal knee osteoarthritis. General: No pedal edema Psych Speech and movement: Normal speech and movement present Affect: normal affect Attitude: cooperative Thought process: Normal thought process present Thought content: Normal thought content present Insight: Good insight present (Psych) Judgement: Good judgement present (Psych) Assessment & Plan Assessment & Plan (1) Osteoarthritis of knees, bilateral: Code(s): M17.0 - Bilateral primary osteoarthritis of knee Category: Medical (2) Radiculopathy, lumbar region: Code(s): M54.16 - Radiculopathy, lumbar region Category: Medical (3) Spondylosis of lumbar region without myelopathy or radiculopathy: Code(s): M47.816 - Spondylosis without myelopathy or radiculopathy, lumbar region Category: Medical (4) Disc degeneration, lumbar: Code(s): M51.369 - Other intervertebral disc degeneration, lumbar region without mention of lumbar back pain or lower extremity pain Category: Medical (5) Chronic pain syndrome: Code(s): G89.4 - Chronic pain syndrome Category: Medical (6) Bilateral knee pain: Code(s): M25.561 - Pain in right knee; M25.562 - Pain in left knee Category: Medical (7) Pain of both sacroiliac joints: Code(s): M53.3 - Sacrococcygeal disorders, not elsewhere classified Category: Medical (8) Sacroiliitis: Code(s): M46.1 - Sacroiliitis, not elsewhere classified Category: Medical Plan This very unfortunate 74 years old female probably suffering from multiple arthritic sites. Considering her knee she would be a good candidate for total knee replacement however currently she is very negative about the procedure. She states that she has a pacemaker and she has is afraid to go for surgery. Right and after that left Diagnostic genicular nerve blocks resulted in 7 weeks of 90% pain improvement, however radiofrequency ablation of the left and right knees resulted in no improvement of the pain. Nevertheless patient reported improved mobility and this is already encouraging. I would not be recommending the patient to go for another radiofrequency ablation of bilateral knees. If she will return to me with the knee pain I would consider referring her to Orthopedic surgery considering total knee replacement. As of her lower back pain I will schedule her for diagnostic bilateral sacroiliac joint injection. Coding Level of Care Code Est Pt Level 3 (24675) Diagnoses Osteoarthritis of knees, bilateral M17.0 Radiculopathy, lumbar region M54.16 Spondylosis of lumbar region without myelopathy or radiculopathy M47.816 Disc degeneration, lumbar M51.369 Chronic pain syndrome G89.4 Bilateral knee pain M25.561; M25.562 Pain of both sacroiliac joints M53.3 Sacroiliitis M46.1
--- OUTSIDE RECORDS SUMMARY | 2025-06-11 19:28 | XMS_ITS | Clinical Summary ---
Author Organization [employer] [facility] Address [address] [place] [address] Care Team Providers Care Glue Plant Operator Name Role Phone Bran Vásquez MD Primary Care Provider [phone] Allergies Active Allergy Reactions Criticality Noted Date [...] 20 mg by mouth daily. 0 Active Lawn-3 1000 MG CAPS Take 1 capsule by [...] dislocation. Ct left knee, recently done at [facility], seen by orthopedics Dr. joycelyn Avalos [...] age to complete this topic Care Teams Glue Plant Operator Relationship Specialty Start Date End Date Bran Vásquez MD [address] [place] [id number] PCP - General Hospitalist Medicine 09/30/23
--- OUTSIDE RECORDS SUMMARY | 2025-06-11 19:28 | XMS_ITS | Data Portability ---
Author Organization [employer] [facility], [facility] Address [address] [place] [address] Care Team Providers Care Switchboard Manager Name Role Phone HIM CCA OTHER Assessment [...] any twisting will aggravate the pain. VSS. Escalator Installer on site reports no reproducible abdominal pain, [...] in the field was performed by my drawer in dobby loom colleague, as noted above, I provided real-time [...] Assessment and Plan as documented by the Escalator Installer. Patient given the opportunity to ask questions. [...] shortness of breath and denies GROSS. Per drawer in dobby loom on the scene, vital signs are stable [...] cmp, whole blood + renay [email or web address], [phone] 4 16:57:24 hemoglobin + hematocrit, blood [email or web address], [address] 4 16:57:23 culture, urine 2022 023 [place] [facility] (Centralized Electronic Ordering - All Locations), Patient Can Go To The Location Of Their Choice, [id number] 14:44:21 Referral None recorded. Procedures None recorded. Surgeries None recorded. Imaging electrocard iogram 2023 024 [email or web address] [facility], [address] [place] [address], [phone] 14:52:21 Medication Orders Voltaren 1 % topical gel 2022 023 [facility] [place], [place] - [id number], [address] [place] [address], [address], 16:53:28 Patient TargetsNo targets recorded. Patient InstructionsNo instructions recorded. Reason for Referral None Reported. Results Created Date Observation Date Name Description Value Unit Range Abnormal Flag Note LastModifiedBy Organization Detail LastModifiedTime 05/29/2005/29/2023 URINE CULTU RE specimen description URINE Not Available [facility] (Central[facility] Ordering - All Locations) Patient Can Go To The Location Of Their Choice, [id number] 05/30/2023 14:44:21 05/29/2005/29/2023 URINE CULTU RE special requests NONE Not Available [facility] (Centralized Electronic Ordering - All Locations) Patient Can Go To The Location Of Their Choice, [id number] 05/30/2023 14:44:21 05/29/20 23 05/30/2023 URINE CULTU RE culture <10,00 0 COL/ML abnormal Not Available [facility] (Centralized Electronic Ordering - All Locations) Patient Can Go To The Location Of Their Choice, [id number] 05/30/2023 14:44:21 05/29/20 23 05/30/2023 URINE CULTU RE report status FINAL 2022 Not Available [facility] (Centralized Electronic Ordering - All Locations) Patient Can Go To The Location Of Their Choice, [id number] 05/30/2023 14:44:21 11/25/19 24 11/25/2023 hemog lobin + hemat ocrit , blood Hemoglobin 15.2 Not Available [facility] - [address], [address] [place] [address] 11/25/2023 16:53:14 11/25/19 24 11/25/2023 cmp, whole blood + picco lo CRE 0.5 Not Available [facility] [address], [address] [place] [address] 11/25/2023 16:52:56 11/25/19 24 11/25/2023 cmp, whole blood + picco lo GLU 130 Not Available [facility] [address], [address] [place] [address] 11/25/2023 16:52:56 11/25/19 24 11/25/2023 cmp, whole blood + picco lo K+ 4.4 Not Available [facility] [address], [address] 11/25/2023 16:52:56 11/25/19 24 11/25/2023 cmp, whole blood + picco lo Na+ 129 Not Available [facility] - [facility] [address], [phone] 11/25/2023 16:52:56 04/22/20 24 04/22/2024 elect lauroar diogr am No observ ation record ed. [email or web address] [address], [phone] 04/22/2024 21:20:48 Result Notes None recorded. Medical [...] % 99 % 170/81 mm[Hg] Not Available [facility] 4 16:16:21 Date Recorded Heart rate Respiratory rate Oxygen saturation Oxygen saturation in Arterial blood by Pulse oximetry Body temperature Systolic And Diastolic Provider Name and Address Organization Details Last Updated DateTime 4 66 /min 16 /min 98 % 98 % 99 [degF] 160/90 mm[Hg] Not Available [facility] 4 19:21:40 Date Recorded Heart rate Oxygen saturation Oxygen saturation in Arterial blood by Pulse oximetry Body temperature Respiratory rate Systolic And Diastolic Provider Name and Address Organization Details Last Updated DateTime 4 65 /min 99 % 99 % 97.1 [degF] 16 /min 150/66 mm[Hg] Not Available [facility] 4 16:47:42 Date Recorded Respiratory rate Heart rate Body temperature Body weight Body height Oxygen saturation Oxygen saturation in Arterial blood by Pulse oximetry Systolic And Diastolic Provider Name and Address Organization Details Last Updated DateTime 3 16 /min 66 /min 99.1 [degF] 98933.8 8 g 144.78 cm 98 % 98 [...] ICD10 Code Diagnosis IMO Codes Diagnosis Note [id number] Ele Peña MD [address] [phone] 05/29/2023 11:25:06 05/30/2023 11:17:09 Right flank pain 328926503 R10.9 Urinary symptoms 7055407 08 R39.9 [id number] Toña Zamora MD [address] [phone] 11/25/2023 16:16:01 11/26/2023 12:35:10 Dizziness 763680801 R42 73 year old female with a [...] assessment and plan as documented by the drawer in dobby loom. I provided real-time medical direction for this encounter and was immediatel y available to provide additional phone-base d assistance as needed. We discussed the diagnostic uncertaint y of home visits and associated risks. We discussed the need to seek care urgently/e mergently in the setting of any new or worsening symptoms. [id number] Jaci Seymour MD [address] [phone] 11/26/2023 17:33:41 11/28/2023 11:41:23 Hyponatremia [id number] E87.1 53503 Angelic Duncan MD [facility] [address] [place] [address] 04/22/2024 16:47:28 04/23/2024 12:53:07 Chest pain 28278941 R07.9 Health Concerns Section Related Observation LastModified by Organization Dettimmy ls LastModified Time None Recorded Concern Status LastModified by Organization Details LastModified Time None Recorded Advance Directives Directive None Recorded Payers Insurance Date Sequence Insurance Name Policy Number Policy Galloway Covered Member ID Galloway Member ID Guarantor Name 04/24/2024 1 [facility] - DOS ON OR AFTER 2022 - DUAL ELIGIBLE - DETENTION OPTIONS AND ONE CARE (MEDICARE REPLACEMENT/ADV ANTAGE - HMO) Vane Lisa [id number] Vane Lisa Notes Date Note Type Note [...] member remains symptomatic. Member in agreement with [facility] Referral. ..................... ..................... ..................... ..................... ..................... ..................... ............... CRC Nursing Assessment: Comments: CRC RN did not require any additional information to process this visit. ..................... ..................... ..................... ..................... ..................... ..................... ............... Escalator Installer Note From Babatunde Mancuso: Pt reports approx one week of right sided ABD and flank pain. Pt denies any precipitating event or associated injury. Pt denies dysuria, hematuria, CP, SOB, f/n/v/d. Pt was seen at [facility] ED on Monday, had full work up and was told everything was negative. Pt is alert, NAD. VSS. Afebrile. Neuro exam and gait normal. Lungs CTA. ABD is soft, non distended. No CVA tenderness. No KRISTYN. UA: 3+ BETY, - NIT, - BLO, - PRO. UC sent to [facility]. Pt instructed to continue with tylenol, call PCP s office today for f/u, and to seek emergent medical care for new or worsening sx, which are reviewed with her. [facility] [place] Orders: culture, urine: Performed ..................... ..................... ..................... ..................... ..................... ..................... ............... Disposition: Som Peña MD [address] [facility],[address], [place], [address], [place] 05/29/2023 12:02:51 11/25/2023 text/html CRC Nurse Triage Notes (Trent Servin): Patient Reports: Shortness of Breath; Palpitations, feeling dizzy; Weakness/tachycardiaD enies: Active Chest pain, radiates to neck jaw and or arm Diaphoretic/Sweating Describes as c rushing Sudden onset of nausea/Vomiting and shortness of breath. Unable to speak in full sentences without distress Chest pain, increased fatigue Chief Complaints: Syncope/Dizziness/Lig htheadednessPMH: Hypertension, DiabetesAllergies: UnknownComments: Machine Designer verified the member's name//address and phone number. [...] treatment x3 - InstED response times explained Escalator Installer POC Test Results from Babatunde Mancuso MANDO [...] result can be found under Documents section. Escalator Installer POC Test Results from Babatunde Mancuso MANDO Urine Dipstick (1) [16:28] Urine leukocytes: - BETY Urine nitrites: - NIT Urine urobilinogen: - URO Urine protein: - PRO Urine pH: 6.0 pH Urine blood: - BLO Urine specific gravity: 1.00 SG Urine ketones: - KET Urine bilirubin: - CALISTA Urine glucose: - GLU ..................... ..................... ..................... ..................... ..................... ..................... ............... Escalator Installer Note From Babatunde Mancuso: Pt reports three [...] ............... Disposition: Fulfilled Toña Zamora MD [address] [facility],[address], [place], [address], [place] - [employer] SolutionsANGEL VERAS 11/25/2023 16:57:51 11/26/2023 text/html CRC Nurse Triage Notes (Trent Servin): Chief Complaints: Electrolyte Imbalance PMH: Hypertension, Diabetes Allergies: Unknown [facility] [...] POC labs uploaded; Na 129, Ca 1.08. [facility] RemarksPatient seen 11/24 for malaise/palpitations, unclear etiology, sodium 129, recommend FU 24-48h to repeat sodium level. - Follow up scheduled 11/25[facility] HPI:feeling gernally unwell, palpitatoins and dizziness. seen by insted yesterday, found to have sodium of 129. today, 127. on history, she reports being told by her pcp to restrict liquids b/c of low sodium but she doesn't how low. Escalator Installer POC Test Results from Perri Oliver - MANDO iSTAT Chem8+ (1) [19:22] Na: 127 mEq/L K: 4.2 mEq/L Cl: 97 mEq/L iCa: 1.11 mmol/L TCO2: 22 mmol/L Glu: 164 mg/dL BUN: 16 mg/dL Crea: 0.7 mg/dL Hct: 37 % Hb: 12.6 g/dL A ..................... ..................... ..................... ..................... ..................... ..................... ............... Escalator Installer Note From Perri Oliver: Community Escalator Installer Irvin Oliver SC6 dispatched to a [facility] for a 73 yof C/O hyponatremia. Upon [...] on a fluid restriction by her PCP. [facility] consulted; pt was reassured that since she was asymptomatic, she was safe to stay home and should follow up w/ her PCP, especially to see if this sodium level was WNL for her. Pt verbalized understanding and agreed. Red flags discussed at length. ..................... ..................... ..................... ..................... ..................... ..................... ............... Disposition: Som Seymour MD [address] [place] [address],[address], [place], [address], [place] 11/26/2023 19:46:26 04/22/2024 text/html HPI: Maya is a 73 yo Hebrew/Irish speaking female with extensive medical hx including [...] with Mbr as applicable. Call originated from [phone]. Address and phone number confirmed with Mbr. ..................... ..................... ..................... ..................... ..................... ..................... ............... CRC Nurse Triage Notes (Trent Servin): Chief Complaints: Pain, Diarrhea, Weakness/Lethargy PMH: Heart Disease, Hypertension, Diabetes Comments: Reviewed HPI Escalator Installer Organization Information for Babatunde Mancuso Business Legal Name: [facility] Address: [address] [place] [address], Tack Cutter: Ryan Pedraza MD [facility] No.: [id number] Escalator Installer POC Test Results from Babatunde Mancuso 1stdibs EKG (16:42:22) EKG test performed. Attachments uploaded as part of this test result can be found under Documents section. ..................... ..................... ..................... ..................... ..................... ..................... ............... Escalator Installer Note From Babatunde Mancuso: Pt reports three [...] to drive her. Pt to go to [facility] via family. ..................... ..................... ..................... ..................... ..................... ..................... ............... Disposition: Fulfilled Angelic Duncan MD [address] [facility],[address], [place], [address], [employer] 04/22/2024 20:55:44 OBGyn Episode No OBEpisode recorded.
--- OUTSIDE RECORDS SUMMARY | 2025-06-11 19:28 | XMS_ITS | Patient Health Record ---
[facility] Address [address] [facility] [place] [place] [address] Care Team Providers Care Manager Of Loss Prevention Operations Name Role Phone Madhu, Baptism Unavailable [phone] Allergies Allergen (clinical drug ingredient) Drug/Non Drug Allergy documented on EMR Reaction Allergy Type Onset Date Status Penicillin Unknown Drug Allergy Active Reason For Referral No Information Medications Medication SIG (Take, Route, Frequency, Duration) Notes Start Date End Date Status Sucralfate 1 GM Oral; Duration: 30 Days Active Omeprazole 20 MG Oral; Duration: 30 Days Active hydrALAZINE HCl 25 MG Oral; Duration: 30 Days Active Gabapentin 100 MG Oral; Duration: 30 Days Active Atorvastatin Calcium 20 MG Oral; Duration: 30 Days Active amLODIPine Besylate 10 MG Oral; Duration: 30 [...] a day; Duration: 14 days 06/09/2025 Active Social History Tobacco Use: Social History [...] Problem Status W/U Status Risk Notes Problem Acquired hammer toe of right foot (9816924841217522) Other hammer toe(s) (acquired), right foot (M20.41) Active confirmed Problem Bilateral atherosclerosis of arteries of lower limbs (disorder) (45979221261282535 ) Atherosclerosis of artery of both lower extremities (I70.203) Active confirmed Q7(A), Q8(2B), Q9(1B,2 C) Problem Localized, primary osteoarthritis of the ankle and/or foot (653344758) Arthritis of joint of lesser toe, right (M19.071) Active confirmed Vital Signs Blood pressure diastolic 80 mm Hg 06/09/2025 Height 4ft 9in in 06/09/2025 Blood pressure systolic 120 mm Hg 06/09/2025 Weight 118 lbs 06/09/2025 BMI 25.53 kg/m2 06/09/2025 Procedures Procedure Date Ordered Date Performed Result Body Sit e 64605-UIQSEII NAIL, 1-5 06/09/2025 N/A 41902-SIGR SKIN LESIONS, 2 TO 4 06/09/2025 N/A [id number]-[id number] DYSTROPHIC NAILS ANY # 06/09/2025 N/A Encounters Encounter Location Date Provider Diagnosis [address] [address] 06/09/2025 Eyal Leung Atherosclerosis of artery of [...] metatarsophalangeal joint of toe, initial encounter S93.149A [address] [address] 06/09/2025 Eyal Leung Assessments Encounter Date Diagnosis (ICD Code) Assessment Notes Treatment Notes Treatment Clinical Notes Section Notes 06/09/2025 Tinea unguium (ICD-1 0 - B35.1) 06/09/2025 Atherosclerosis of artery of both lower extremities (ICD-10 - I70.203) Q7(A), Q8(2B), Q9(1B,2C) 06/09/2025 Pain in left toe(s) (ICD-10 - [...] encounter (ICD-10 - S93.149A) Plan Of Treatment Pending Test Test Name Order Date X ray : Foot, right 3V 06/09/2025 49158-IIBVKEK NAIL, 1-5 06/09/2025 19643-MEFZ SKIN LESIONS, 2 TO 4 06/09/20 25 Z9040-LWHUBOKT DYSTROPHIC NAILS ANY # Next Appt Details Provider Name:Eyal mendoza, 09/09/2025 11:00:00 AM, [address], [place], [address], Insurance Providers Payer Name Payer Address Payer Phone Subscriber Number Group Number Insured Name Patient Relationship to Insured Coverage Start Date Coverage End Date [facility] [employer] Claims [address] [place] [id number] Lisa Self - patient is the insured 1 Medical (General) History Medical History History ICD Code Arthritis Back,Hip,and Knee pain CAD (Cholesterol) Cataracts High Blood Pressure Kidney disease Reflux ( GERD) Chicken pox Pacemaker Surgical History Surgery Date(Month/Year) cardiac pacemeker
== END 2025-06-11 10:29 | disposition home or self-care (01) ==
LOC: HO.PMC 10:13
PROVIDERS: PCP Internal Medicine; Visit Provider Anesthesiology
DX: M17.0 Bilateral primary osteoarthritis of knee (principal); M54.16 Radiculopathy, lumbar region; M47.816 Spondylosis without myelopathy or radiculopathy, lumbar region; M51.369 Other intervertebral disc degeneration, lumbar region without mention of lumbar back pain or lower extremity pain; G89.4 Chronic pain syndrome; M25.561 Pain in right knee; M25.562 Pain in left knee; M53.3 Sacrococcygeal disorders, not elsewhere classified; M46.1 Sacroiliitis, not elsewhere classified
CPT/HCPCS: 99213

== ENCOUNTER → 2025-06-11 10:13 | Outpatient (BNVA) | payer OTHER, SELFPAY | PROVIDERS: PCP Internal Medicine; Visit Provider Anesthesiology | DX: M17.0 Bilateral primary osteoarthritis of knee (principal); M54.16 Radiculopathy, lumbar region; M47.816 Spondylosis without myelopathy or radiculopathy, lumbar region; M51.369 Other intervertebral disc degeneration, lumbar region without mention of lumbar back pain or lower extremity pain; G89.4 Chronic pain syndrome; M25.561 Pain in right knee; M25.562 Pain in left knee; M53.3 Sacrococcygeal disorders, not elsewhere classified; M46.1 Sacroiliitis, not elsewhere classified | CPT/HCPCS: 99212 ==